=== PATIENT | female | born 1965 | race Caucasian/White ===

== ENCOUNTER 2021-03-10 09:59 | Outpatient (REF) | payer OTHER, SELFPAY | END 2021-03-10 10:00 | disposition home or self-care (01) | LOC: HO.LAB 09:59 | PROVIDERS: Visit Provider Nurse Practitioner Family | DX: J01.10 Acute frontal sinusitis, unspecified (principal); Z20.822 Contact with and (suspected) exposure to COVID-19 | CPT/HCPCS: U0003; U0005 ==

== ENCOUNTER 2021-03-12 14:40 | Outpatient (REF) | payer OTHER, SELFPAY ==
[2021-03-12 15:30] LABS: Influenza A PCR NEGATIVE (Negative); Influenza B PCR NEGATIVE (Negative); Resp Syncy Virus RNA Qual PCR NEGATIVE (Negative); SARS COV2 PCR INHOUSE NEGATIVE (Negative)
== END 2021-03-12 14:41 | disposition home or self-care (01) ==
LOC: HO.LNP 14:40
PROVIDERS: Visit Provider Nurse Practitioner Family
DX: Z20.822 Contact with and (suspected) exposure to COVID-19 (principal)
CPT/HCPCS: 0241U

== ENCOUNTER 2021-07-02 09:27 | Outpatient (REF) | payer OTHER, SELFPAY ==
[2021-07-02 11:25] LABS: Glucose Urine UA NEG (NEG); Leukocyte Esterase Urine NEG (NEG); Nitrite Urine NEG (NEG); Specific Gravity - Urine >= 1.030 (1.005-1.025); Urine Blood NEG (NEG); Urine Ketones NEG (NEG); Urine Protein TRACE MG/DL (NEG-TRACE)
[2021-07-02 11:26] LABS: Hematocrit 38.5 % (37-47); Hemoglobin 12.2 g/dl (12.0-16.0); Mean Corpuscular HGB Conc 31.7 g/dl (31.0-35.0); Mean Corpuscular Hemoglobin 29.3 pg (27.0-33.0); Mean Corpuscular Volume 92.5 fL (80-98); Mean Platelet Volume 10.7 fL (9.4-12.3); Platelet Count 227 X10*3/uL (160-400); Red Blood Count 4.16 X10*6/uL (4.20-5.50); Red Cell Distribution Width 13.1 % (11.0-16.0); White Blood Count 4.2 X10*3/uL (4.8-10.8)
[2021-07-02 11:27] LABS: Appearance Urine CLEAR; Color Urine YELLOW
[2021-07-02 12:04] LABS: TSH reflex Free T4 3.33 uIU/mL (0.32-4.0)
[2021-07-02 12:07] LABS: Alanine Aminotransferase 17 U/L (0-31); Albumin Level 4.1 g/dL (3.5-5.0); Alkaline Phosphatase 78 U/L (39-117); Anion Gap 11 (12-20); Aspartate Amino Transferase 22 U/L (5-31); Bilirubin Total 0.4 mg/dL (0.0-1.0); Blood Urea Nitrogen 14 mg/dL (9-16); Calcium 9.4 mg/dL (8.4-10.2); Carbon Dioxide 28 mmol/L (22-29); Chloride 104 mmol/L (96-108); Cholesterol 195 mg/dL; Estimated Glomerular Filt Rate > 60; Glucose Fasting 86 mg/dL (60-99); HDL Cholesterol 38 mg/dL; LDL Cholesterol Calculated 131 mg/dl; Potassium 4.3 mmol/L (3.3-5.1); Sodium 139 mmol/L (135-145); Total Protein 7.4 g/dL (6.5-8.0); Triglycerides 130 mg/dL
== END 2021-07-02 09:28 | disposition home or self-care (01) ==
LOC: HO.HMGCLDS 09:27
PROVIDERS: PCP Internal Medicine; Visit Provider Internal Medicine
DX: Z00.00 Encounter for general adult medical examination without abnormal findings (principal); G90.50 Complex regional pain syndrome I, unspecified
CPT/HCPCS: 36415; 80053; 80061; 81003; 84443; 85027

== ENCOUNTER 2021-08-21 09:48 | Outpatient (REF) | payer OTHER, SELFPAY ==
[2021-08-26 08:21] LABS: HPV mRNA E6/E7 rflx Not Detected (Not Detected)
== END 2021-08-21 09:49 | disposition home or self-care (01) ==
LOC: HO.LAB 09:48
PROVIDERS: Advanced Practice Midwife; PCP Internal Medicine; Visit Provider Advanced Practice Midwife
DX: Z01.419 Encounter for gynecological examination (general) (routine) without abnormal findings (principal); Z11.51 Encounter for screening for human papillomavirus (HPV)
CPT/HCPCS: 87624; 88142

== ENCOUNTER 2022-06-24 07:33 | Emergency (ER) | payer OTHER, SELFPAY ==
[2022-06-24 08:15] VITALS: BP 145/94; PULSE 88; RESP 18; TEMP 37; O2SAT 97; BMI 25.7
[2022-06-24 08:57] LABS: IDNOW Serial# 16C4AD1C
[2022-06-24 08:58] LABS: COVID-19 Test Negative (Negative)
--- NOTE | 2022-06-24 09:27 | ED.GENADULT ---
HPI - General Adult General Chief complaint: General Medical Stated complaint: DIZZY SORE THROAT DIFF BREATHING CHEST HURTS Time Seen by Provider: 06/24/22 09:01 Source: patient Mode of arrival: ambulatory Limitations: no limitations History of Present Illness HPI narrative: This is a [id number]-[id number]-female with a past medical history of hypertension and right arm neuropathy, who presents today with complaints of headache, cough, sore throat, bilateral ear pain, productive cough, subjective fevers, diarrhea, vomiting, and chest wall pain x 4 days. Patient reports that on tuesday she felt as though she was getting sick. She then developed a productive cough with associated chest wall pain, sore throat, and bilateral ear pain. She states that she has been taking ibuprofen for her symptoms which has provided her with minimal relief. She states that she has had 4 episodes of diarrhea, states that she has had no bloody or black stool. Denies any abdominal pain. Her daughter is sick at home with strep throat. No other complaints or concerns at this time. MD complaint: Ear pain, Sore throat, cough Onset (ago): day(s) Severity: moderate Severity scale (1-10): 5 Quality: aching Pain Consistency: constant Relieving factors: medication Exacerbating factors: none Associated symptoms: cough, fever/chills (subjective), headaches and nausea/vomiting Treatments prior to arrival: NSAID Related Data Home Medications Medication Instructions Recorded Confirmed baclofen 10 mg tablet 10 mg PO TID 03/10/21 08/21/21 gabapentin 600 mg tablet mg PO 03/10/21 08/21/21 morphine 15 mg tablet,extended 15 mg PO BEDTIME 03/10/21 08/21/21 release tramadol 50 mg tablet [id number] mg PO QID PRN 03/10/21 08/21/21 Previous Rx's Medication Instructions Recorded meloxicam 15 mg tablet (Mobic) 15 mg PO DAILY #14 tabs 08/11/21 meclizine 25 mg tablet 25 mg PO DAILY PRN motion sickness 12/30/21 #30 tabs metoprolol succinate 50 mg 50 mg PO DAILY #90 tabs 01/22/22 tablet,extended release 24 hr amoxicillin 875 mg-potassium 1 tab PO BID 10 days #20 tabs 06/24/22 clavulanate 125 mg tablet ofloxacin 0.3 % ear drops 10 drp otic (ears) BID 7 days #10 06/24/22 mL Allergies Allergy/AdvReac Type Severity Reaction Status Date / Time No Known Allergies Allergy Verified 08/21/21 10:09 [No Known Allergies*] Review of Systems Review of Systems: Constitutional : No Weight loss, + subjective Fever, + Chills, No Night Sweats, + Fatigue, + Malaise ENT/Mouth : No Hearing loss, + Ear Pain, No Nasal Congestion, No Sinus Pain, No Hoarseness, + sore throat, No Rhinorrhea, No Swallowing Difficulty Eyes: No Eye Pain, No Swelling, No Redness, No Foreign Body, No Discharge, No Vision Changes Cardiovascular : No Chest Pain, No SOB, No Dyspnea on Exertion, No Orthopnea, No Edema, No Palpitations Respiratory : + Cough, No Sputum, No Wheezing, No Smoke Exposure, No Dyspnea Gastrointestinal : + Nausea, + Vomiting, + Diarrhea, No Constipation, No abdominal Pain, No Hematochezia, No Melena Genitourinary : no irregular bleeding, No Dysuria, No Urinary Frequency, No Hematuria, No Urinary Incontinence, No Urgency, No Flank Pain, No Urinary Flow Changes, No Hesitancy Musculoskeletal : No joint pain, + Myalgias, No Joint Swelling Skin : No Skin Lesions, No rash Neuro : No Weakness, No Numbness, No Paresthesias, No Loss of Consciousness, No Dizziness, + Headache Psych : No Anxiety/Panic, No Depression, No SI/HI/AH/VH, No Social Issues, Heme/Lymph: No Bruising, No Bleeding,No Lymphadenopathy Endocrine : No Polyuria, No Polydipsia, No Temperature Intolerance Yes all other systems are reviewed and are negative [facility] Past Medical History Attestation statement: The following information was validated with the patient. Source: old records reviewed and nursing notes reviewed Medical History Annual physical exam Carpal tunnel syndrome on right Fibromyalgia Herniated cervical disc Hypertension RSD (reflex sympathetic dystrophy) Surgical History H/O colonoscopy Social History Social History (Updated 08/21/21 @ 10:12 by Ebonie Kyle CMA) Household Members: Spouse and Children Housing: House Alcohol intake: never Patient Tobacco Use Status: Never used Tobacco e-Cigarette/Vaping Use: Never Used Advance Directives: No Advance Directives Information Provided: Yes Current occupational status: disabled Sexual orientation: Straight/Heterosexual Gender identity: Female Physical Exam ED Vital Signs: Vital Signs - 24 hr 06/24/22 08:15 Temperature 98.6 F Pulse Rate 88 Respiratory Rate 18 Blood Pressure 145/94 H Pulse Oximetry 97 Oxygen Delivery Method Room Air BMI result Body Mass Index 25.7 Vital signs have been reviewed as normal and appeared to be correct. Blood pressure 145/94. Heart rate normal. Respiration rate normal. Temperature normal. Oxygen saturation normal. Appearance: Alert. Oriented X3. No acute distress. Head: Normal external exam. Normocephalic. Atraumatic. Eyes: PERRLA. EOMI. Conjunctiva and sclera normal. Eyelids normal. ENT: Erythema and edema noted to the auditory canal, L>R. TM's Normal. Tenderness to palpation over the left pinna, and with tugging on the ear lobe and helix. No septal hematoma noted. No hemotympanum noted. Pharynx is mildly erythematous. Tonsils are nonedematous, nonexudative, Uvula midline. Moist mucous membranes. No lesions/ulcerations or masses noted on the tongue. Normal voice. No trismus noted. No drooling noted. No muffled voice noted. Neck: Normal inspection. Neck supple. FROM. Tender, Anterior, cervical lymphadenopathy. Thyroid Normal. No tracheal deviation noted. No crepitus is noted. No meningeal signs. No neck mass noted. No signs of trauma noted. CVS: Normal heart rate and rhythm. Heart sound normal. Pulses normal throughout. No murmurs/rales/gallops. Respiratory: No respiratory distress. Painless inspiration. Breath sounds normal. No wheezes/rales/rhonchi noted. Chest nontender. No crepitus is noted. No signs of trauma noted. No accessory muscle usage noted or decreased air movement noted. No signs of trauma. Abdomen: Soft and nontender. Bowel sounds normal in all 4 quadrants. Back: No CVA tenderness. Full range of motion noted. Skin: Skin warm and dry. Normal skin color. Normal skin turgor. No rashes/lesions/lacerations noted. Extremities: No lower extremity edema. Extremities exhibit normal range of motion and nontender. Neuro: Oriented X 3. No motor deficit. No sensory deficit. Reflexes normal. Normal steady gait. No focal neuro deficits noted. CN's II-XII intact bilaterally? Vascular: + radial pulses/+ 2 distal pedal pulses/+2 dorsalis pedis b/l. Normal cap refill. No cyanosis noted to upper extremity nails and lower extremity toes nails. Course Course Course Narrative: This is a 73-krwj-kgx-female with a past medical history of hypertension and right arm neuropathy, who presents today with complaints of headache, cough, sore throat, bilateral ear pain, productive cough, subjective fevers, diarrhea, vomiting, and chest wall pain x 4 days. Plan: COVID-19 swab,negative today. Strep test performed and pending. Reevaluation(s) Reevaluation #1: Physical examination consistent with otitis externa, will treat with ciprodex, and augmentin for pharyngitis due to daughter works with kids and was positive for strep last week. Along with instructions return if any new or worsening symptoms follow up with primary care provider. Patient understands agrees with this plan. Medical Decision Making Medical Records Medical records reviewed: Yes I reviewed the patient's medical records. Lab Data Lab results reviewed: Yes I reviewed the patient's lab results. Labs: Lab Results 06/24/22 06/24/22 Range/Units 08:23 10:28 COVID-19 (MIGDALIA) Negative (Negative) COVID-19 Clin Com See Note S. pyogenes GrpA SAUNDRA Negative (Negative) Discharge Plan Discharge Clinical Impression: Otitis externa, Pharyngitis Patient Disposition: Home, Self-Care Additional Instructions: Your COVID test was negative today. Take prescribed antibiotic as prescribed, finish the whole course. Use the prescribed antibiotic ear drops as prescribed. You may take over the counter ibuprofen/tylenol as directed needed for symptoms. Drink plenty of fluids and get plenty of rest. If any new or worsening symptoms occur, please return for re-evaluation. Prescriptions: New amoxicillin-pot clavulanate 875-125 mg tablet 1 tab PO BID 10 Days Qty: 20 0RF ofloxacin 0.3 % drops 10 drp otic (ears) BID 7 Days Qty: 10 0RF No Action meclizine 25 mg tablet 25 mg PO DAILY PRN (Reason: motion sickness) Qty: 30 0RF metoprolol succinate 50 mg tablet extended release 24 hr 50 mg PO DAILY Qty: 90 3RF morphine 15 mg tablet extended release 15 mg PO BEDTIME tramadol 50 mg tablet [id number] mg PO QID PRN gabapentin 600 mg tablet PO baclofen 10 mg tablet 10 mg PO TID meloxicam [Mobic] 15 mg tablet 15 mg PO DAILY Qty: 14 0RF Referrals: Ayana Whitney MD [Primary Care Provider] - 2 days Stand Alone Forms: Work/School Release Interventions: ED Discharge Assessment Last Done: 06/24/22 10:33 Discharge Date/Time: 06/24/22 10:33
[2022-06-24 10:52] LABS: Strep A Nucleic Acid Negative (Negative)
== END 2022-06-24 10:33 | disposition home or self-care (01) ==
PROVIDERS: Physician Assistant Medical; Emergency Provider Student in an Organized Health Care Education/Training Program; PCP Internal Medicine
DX: H60.93 Unspecified otitis externa, bilateral (principal); J02.9 Acute pharyngitis, unspecified; R42 Dizziness and giddiness; R50.9 Fever, unspecified; I10 Essential (primary) hypertension; R11.2 Nausea with vomiting, unspecified; Z20.822 Contact with and (suspected) exposure to COVID-19; Z79.899 Other long term (current) drug therapy
CPT/HCPCS: 36415; 87635; 87651; 99282; 99283

== ENCOUNTER 2022-08-06 06:13 | Emergency (ER) | payer OTHER, SELFPAY ==
--- NOTE | ~2022-08-06 | US_ITS ---
EXAMINATION: US EXTREMITY NONVASCULAR LIMITED CLINICAL INFORMATION: Left knee pain and ecchymosis. Evaluate for torn patellar tendon. COMPARISON: Radiographs of the left knee from 08/06/2022. TECHNIQUE: Sonographic imaging of the left knee was performed by the time study technologist using a high-resolution linear 12 MHz transducer. The acquired images were uploaded into the electronic picture archive for review. FINDINGS: On this limited examination of the left knee, there is no evidence of knee joint effusion or Issa's cyst. The patellar tendon has normal caliber and echotexture. No evidence of patellar tendon tear. A small amount of somewhat crescentic shaped fluid projects anterior to the patellar tendon in area that measures up to 0.3 cm AP and up to 2.5 cm transverse. This could represent a very small hematoma (if recent trauma) or a focus of superficial infrapatellar bursitis. US/US extremity nonvascular peres IMPRESSION: * No evidence of patellar tendon injury. * The small amount of fluid observed anterior to the patellar tendon could represent a focus of superficial infrapatellar bursitis.
--- NOTE | ~2022-08-06 | XR_ITS ---
EXAMINATION: XR KNEE, LEFT CLINICAL INFORMATION: Pain and ecchymosis of the anterior knee. COMPARISON: None TECHNIQUE: Four views of the left knee. FINDINGS: Bones and joints are normal. No fracture, subluxation or joint effusion. No arthritic deformity. There is an enthesophyte at the upper pole of the patella. Soft tissues are mildly swollen in the anterior infrapatellar area. No soft tissue gas or radiopaque foreign body. XR/XR knee LT 4V IMPRESSION: There is mild soft tissue swelling in the anterior infrapatellar area. Otherwise, unremarkable examination of the left knee.
[2022-08-06 06:20] VITALS: BP 121/84; PULSE 64; RESP 16; TEMP 36.6; O2SAT 97; BMI 26.5
[2022-08-06 06:38] VITALS: BP 107/68; PULSE 65; O2SAT 98
--- NOTE | 2022-08-06 07:31 | ED_ITS ---
HPI - Extremity Problem General Chief complaint: Extremity Problem Stated complaint: L KNEE REDNESS PAIN Time Seen by Provider: 08/06/22 07:25 Source: patient Mode of arrival: ambulatory History of Present Illness HPI Narrative: 57-year-old female who states that she was cleaning her kitchen last night and presents with left knee pain that started after she bent her knee to medial on the ground and states that she felt her knee ?shift? with significant pain afterwards causing her to stand up immediately and then she noted that there was swelling and pain to the anterior aspect. This morning she noted that there was related bruising but denies in event of falling onto her knees and denies any pain within the joint itself. Pain does increase with weight-bearing, extension of the lower leg and patient does also have discomfort when flexing at the knee. She otherwise denies numbness or tingling. Related Data Home Medications Medication Instructions Recorded Confirmed baclofen 10 mg tablet 10 mg PO TID 03/10/21 08/21/21 gabapentin 600 mg tablet mg PO 03/10/21 08/21/21 morphine 15 mg tablet,extended 15 mg PO BEDTIME 03/10/21 08/21/21 release tramadol 50 mg tablet [id number] mg PO QID PRN 03/10/21 08/21/21 Previous Rx's Medication Instructions Recorded meloxicam 15 mg tablet (Mobic) 15 mg PO DAILY #14 tabs 08/11/21 meclizine 25 mg tablet 25 mg PO DAILY PRN motion sickness 12/30/21 #30 tabs metoprolol succinate 50 mg 50 mg PO DAILY #90 tabs 01/22/22 tablet,extended release 24 hr amoxicillin 875 mg-potassium 1 tab PO BID 10 days #20 tabs 06/24/22 clavulanate 125 mg tablet ofloxacin 0.3 % ear drops 10 drp otic (ears) BID 7 days #10 06/24/22 mL Allergies Allergy/AdvReac Type Severity Reaction Status Date / Time No Known Allergies Allergy Verified 08/21/21 10:09 [No Known Allergies*] Review of Systems Review of Systems: Pertinent positives and negatives as stated in HPI 10 point review of systems is otherwise negative. PMFSH Past Medical History Source: nursing notes reviewed Medical History Annual physical exam Carpal tunnel syndrome on right Fibromyalgia Herniated cervical disc Hypertension RSD (reflex sympathetic dystrophy) Surgical History H/O colonoscopy Social History Social History Household Members: Spouse and Children Housing: House Alcohol intake: never Patient Tobacco Use Status: Never used Tobacco e-Cigarette/Vaping Use: Never Used Advance Directives: No Advance Directives Information Provided: Yes Current occupational status: disabled Sexual orientation: Straight/Heterosexual Gender identity: Female Physical Exam Vital Signs: Vital Signs: Last Vital Signs Temp 98 F 08/06/22 06:20 Pulse 65 08/06/22 06:38 Resp 16 08/06/22 06:20 BP 107/68 08/06/22 06:38 Pulse Ox 98 08/06/22 06:38 O2 Del Method 08/06/22 06:38 BMI result Body Mass Index 26.5 VITAL SIGNS: Reviewed. GENERAL: Well developed, well nourished, in no acute distress. HEAD: Normocephalic/atraumatic EYES: PERRLA, EOMI EARS: Ext canals without abnormality OROPHARYNX: no oral lesions noted, posterior pharynx clear LUNGS: Normal breath sounds. No adventitious sounds or accessory muscle use. SpO2<98> CARDIOVASCULAR: Regular rate and rhythm without noted murmurs ABDOMEN: Soft, non-tender, non-distended with bowel sounds. MUSCULOSKELETAL: No tenderness, deformities, or effusions noted on gross inspection x3, but LEFT KNEE: There is noted mild swelling to the anterior aspect over the patellar tendon with surrounding ecchymosis and pain on palpation, decrease extension, pain on flexion otherwise palpable DP/PT with warm foot and sensation is intact. EXTREMITIES: No cyanosis, clubbing or edema. SKIN: Inspection of the skin reveals no rashes NEUROLOGIC: Alert and oriented x 4. Strength and sensation to light touch were grossly intact x 4. Course Course Course Narrative: 57-year-old female with history and clinical presentation mildly concerning for patellar tendon partial rupture and lower clinical suspicion for ACL/PCL/meniscal injuries. Review of all investigations negative for acute findings to suggest patellar tendon rupture or any bony/joint abnormality. Patient received analgesics and on re-evaluation is feeling somewhat better. Presumptive diagnosis is infra- patellar bursitis, Akira wrap was put in place, patient was informed of all findings and diagnoses and instructed to take [id number] Tylenol/ibuprofen to help reduce the bursitis. Discharge Plan Discharge Clinical Impression: Infrapatellar bursitis of left knee Patient Disposition: Home, Self-Care Instructions: Knee Bursitis (ED) Additional Instructions: 1. Resume all home medications as prescribed. 2. If you are no longer using meloxicam, the recommendation is that you start using ibuprofen 400 mg, orally with milk or food, every 6 hours as needed for pain control and swelling. 3. Tylenol 1000 mg, orally, every 6 hours as needed for pain control. Do not exceed 4000 mg within 24 hours. 4. Please keep the Akira wrap in place for additional symptom relief and support. 5. Follow-up with your primary care provider in the next 1-2 days for re- evaluation. Return to the ER for worsening symptoms. Prescriptions: No Action meclizine 25 mg tablet 25 mg PO DAILY PRN (Reason: motion sickness) Qty: 30 0RF metoprolol succinate 50 mg tablet extended release 24 hr 50 mg PO DAILY Qty: 90 3RF amoxicillin-pot clavulanate 875-125 mg tablet 1 tab PO BID 10 Days Qty: 20 0RF ofloxacin 0.3 % drops 10 drp otic (ears) BID 7 Days Qty: 10 0RF morphine 15 mg tablet extended release 15 mg PO BEDTIME tramadol 50 mg tablet [id number] mg PO QID PRN gabapentin 600 mg tablet PO baclofen 10 mg tablet 10 mg PO TID meloxicam [Mobic] 15 mg tablet 15 mg PO DAILY Qty: 14 0RF Referrals: Ayana Whitney MD [Primary Care Provider] - Stand Alone Forms: Work/School Release
[2022-08-06] MEDS: Acetaminophen 325 MG TABLET 975 MG PO (07:59)
[2022-08-06] MEDS: Ibuprofen 400 MG TABLET PO (08:00)
== END 2022-08-06 09:43 | disposition home or self-care (01) ==
PROVIDERS: Emergency Provider Student in an Organized Health Care Education/Training Program; PCP Internal Medicine
DX: M70.52 Other bursitis of knee, left knee (principal); M25.562 Pain in left knee; Z79.899 Other long term (current) drug therapy
CPT/HCPCS: 73564; 76882; 99283; 99284

== ENCOUNTER 2022-09-25 08:10 | Outpatient (REF) | payer OTHER, SELFPAY ==
[2022-09-25 11:40] LABS: MANUAL DIFF FLAG NO
[2022-09-25 11:52] LABS: Basophils Absolute Auto 0.1 X10*3/uL (0.0-0.2); Basophils Percent Auto 0.9 % (0-2); Eosinophils Absolute Auto 0.3 X10*3/uL (0.0-0.4); Hematocrit 40.9 % (37.0-47.0); Hemoglobin 13.1 g/dl (12.0-16.0); Imm Gran Abs Auto 0.01 X10*3/uL (0.00-0.03); Imm Gran Pct Auto 0.2 % (0.0-0.4); Lymphocytes Absolute Auto 2.2 X10*3/uL (1.2-4.9); Lymphocytes Percent Auto 34.8 % (20-40); Mean Corpuscular Hemoglobin 29.7 pg (27.0-33.0); Mean Corpuscular Volume 92.7 fL (80.0-98.0); Mean Platelet Volume 11.1 fL (9.4-12.3); Monocytes Absolute Auto 0.4 X10*3/uL (0.1-1.2); Monocytes Percent Auto 6.2 % (2-11); Neutrophils Absolute Auto 3.5 x10*3/uL (2.0-8.3); Neutrophils Percent Auto 53.9 % (45-73); Platelet Count 252 X10*3/uL (160-400); Red Blood Count 4.41 X10*6/uL (4.20-5.50); Red Cell Distribution Width 13.2 % (11.0-16.0); White Blood Count 6.4 X10*3/uL (4.8-10.8)
[2022-09-25 12:12] LABS: Alanine Aminotransferase 10 U/L (0-31); Albumin Level 4.4 g/dL (3.5-5.0); Alkaline Phosphatase 78 U/L (39-117); Anion Gap 14 (12-20); Aspartate Amino Transferase 16 U/L (5-31); Bilirubin Total 0.5 mg/dL (0.0-1.0); Blood Urea Nitrogen 16 mg/dL (9-16); Calcium 9.6 mg/dL (8.4-10.2); Carbon Dioxide 27 mmol/L (22-29); Chloride 105 mmol/L (96-108); Cholesterol 228 mg/dL; Estimated Glomerular Filt Rate > 60; Glucose Fasting 97 mg/dL (60-99); HDL Cholesterol 59 mg/dL; LDL Cholesterol Calculated 153 mg/dl; Potassium 4.1 mmol/L (3.3-5.1); Sodium 142 mmol/L (135-145); Total Protein 7.3 g/dL (6.5-8.0); Triglycerides 80 mg/dL
[2022-09-25 12:20] LABS: TSH reflex Free T4 3.08 uIU/mL (0.32-4.0)
== END 2022-09-25 08:11 | disposition home or self-care (01) ==
LOC: HO.HMGCLDS 08:10
PROVIDERS: PCP Internal Medicine; Visit Provider Internal Medicine
DX: Z00.00 Encounter for general adult medical examination without abnormal findings (principal); I10 Essential (primary) hypertension; G90.529 Complex regional pain syndrome I of unspecified lower limb; M19.079 Primary osteoarthritis, unspecified ankle and foot
CPT/HCPCS: 36415; 80053; 80061; 84443; 85025

== ENCOUNTER 2023-07-11 08:06 | Outpatient (AMB) | payer OTHER, SELFPAY ==
--- NOTE | 2023-07-11 08:15 | MHC.OFFWIV ---
Intake Vital Signs 07/11/23 08:17 Weight 140 lb BP 120/80 Blood Pressure Location Rt brachial Position Sitting Pulse 80 Pulse Source Pulse Oximeter Pulse Oximetry (%) 98 Oxygen Delivery Method Room Air Intake Visit Reasons: EP, Bilateral lower leg sunburn Intake Note: Patient here for bilat leg sunburn. forming a blister on lower right leg. Patient Tobacco Use Status: Never used Tobacco Allergies No Known Allergies [No Known Allergies*] Allergy (Verified 07/11/23 09:01) Medication List - Last Reconciled 07/11/23 by Bassem Ortez MD baclofen 10 mg PO TID PRN gabapentin mg PO .4 times a day meclizine 25 mg PO DAILY PRN metoprolol succinate ER 50 mg PO DAILY morphine ER 15 mg PO BEDTIME [id number]-HH 3.5-10,000-1 mg/mL-unit/mL-% 4 drps otic (ears) Q8H tramadol [id number] mg PO QID PRN Do you need a note to return to daycare/school/sports/work: No HPI EP, Bilateral lower leg sunburn HPI Details 58-year-old female presents to the office for a sick visit. Patient is reporting symptoms of sunburn in her legs. She had gone to the beach last week and did not use any sunscreen. FORMERLY [facility] Medical History Annual physical exam Carpal tunnel syndrome on right Fibromyalgia Herniated cervical disc Hypertension RSD (reflex sympathetic dystrophy) Surgical History H/O colonoscopy Social History Household Members: Spouse and Children Housing: House Alcohol intake: never Patient Tobacco Use Status: Never used Tobacco e-Cigarette/Vaping Use: Never Used Current occupational status: disabled Sexual orientation: Straight/Heterosexual Gender identity: Female Cognitive needs: No Hearing needs: No Vision needs: Yes Female Reproductive History Menstrual Age of Menarche: 10 Physical Exam Vital Signs: Last Vital Signs Pulse 80 07/11/23 08:17 BP 120/80 07/11/23 08:17 Pulse Ox 98 07/11/23 08:17 Oxygen Delivery Method Room Air 07/11/23 08:17 Extrem Other: Right and left lower leg: Below the knee: Erythematous area, continuous extending up to the ankle. Bilateral feet show minimal swelling. Assessment & Plan Assessment & Plan (1) Phototoxic dermatitis: Code(s): L56.8 - Other specified acute skin changes due to ultraviolet radiation Plan: Prednisone for 3 days. Patient was advised to use hydrocortisone cream. Coding Level of Care Code Est Pt Level 3 (23852) Diagnoses Phototoxic dermatitis L56.8
[2023-07-11 08:17] VITALS: BP 120/80; PULSE 80; O2SAT 98
== END 2023-07-11 09:06 | disposition home or self-care (01) ==
PROVIDERS: PCP Internal Medicine; Visit Provider Internal Medicine
DX: L56.8 Other specified acute skin changes due to ultraviolet radiation (principal)
CPT/HCPCS: 99213

== ENCOUNTER 2023-10-27 09:10 | Outpatient (AMB) | payer OTHER, SELFPAY ==
[2023-10-27 10:45] VITALS: BP 122/78; PULSE 80; TEMP 36.3; O2SAT 98
--- NOTE | 2023-10-27 10:45 | MHC.OFFWIV ---
Intake Vital Signs 10/27/23 10:45 Height 5 ft 3 in BP 122/78 Blood Pressure Location Rt brachial Position Sitting Pulse 80 Pulse Source Pulse Oximeter Temp 97.4 F Temp Source Temporal Artery Scan Pulse Oximetry (%) 98 Oxygen Delivery Method Room Air Intake Visit Reasons: EST/left eye swelling (lobby) Intake Note: pt is here for c/o right eye swelling, ear pain bilateral Patient Tobacco Use Status: Never used Tobacco Allergies No Known Allergies [No Known Allergies*] Allergy (Verified 10/27/23 10:45) Do you need a note to return to daycare/school/sports/work: Yes HPI HPI Comments History of Present Illness Details This is a 58-year-old female with a past medical history of hypertension presenting for evaluation of right eye pain and bilateral ear pain. Patient states that her symptoms started on Tuesday. Patient describes a burning sensation on the lateral right lower eyelid without visual changes or discharge from the right eye. Patient states she was cleaning her ears on Tuesday and she noticed blood on the Q-tip after cleaning her right ear. She denies having any fevers, chills, sore throat or lightheadedness. [facility]LY [facility] Medical History Annual physical exam RSD (reflex sympathetic dystrophy) Hypertension Carpal tunnel syndrome on right Herniated cervical disc Fibromyalgia Surgical History H/O colonoscopy Social History Household Members: Spouse and Children Housing: House Alcohol intake: never Patient Tobacco Use Status: Never used Tobacco e-Cigarette/Vaping Use: Never Used Current occupational status: disabled Sexual orientation: Straight/Heterosexual Gender identity: Female Cognitive needs: No Hearing needs: No Vision needs: Yes Female Reproductive History Menstrual Age of Menarche: 10 Review of Systems Const All systems reviewed & are unremarkable except as noted in HPI and below Denies chills and Denies fever(s) Eyes Reports as per HPI, Denies blurry vision, Denies change in vision, Reports eye pain (right lateral lower eyelid) and Reports requires corrective lenses ENT Reports no additional complaints and Reports otalgia (bilateral, R > L) Resp Reports as per HPI Neuro Reports no additional complaints Physical Exam Vital Signs: Last Vital Signs Temp 97.4 F 10/27/23 10:45 Pulse 80 10/27/23 10:45 BP 122/78 10/27/23 10:45 Pulse Ox 98 10/27/23 10:45 Oxygen Delivery Method Room Air 10/27/23 10:45 Const General: cooperative, healthy appearing, comfortable and no acute distress; No ill appearing Nutritional Appearance: average body habitus Orientation/consciousness: patient oriented x3 Limitations: no limitations HEENT Head: Yes normal to inspection Ears: hearing grossly normal bilaterally, external ears normal, TM's normal bilaterally, EAC's normal and other (no TM bulging, erythema, canal stenosis or pain to examination.) General nose exam: Normal external nose present Face and sinus: Yes normal facial exam Mouth: Normal oral and palatal mucosa present Throat: Yes posterior oropharynx normal Eyes Visual Renee: normal visual renee by confrontation Alignment and Position: alignment normal Periorbital: periorbital findings normal Eyelids: Yes eyelid abnormality (edema and pain to examination of right lateral lower eyelid) Conjunctivae: conjunctivae normal Sclerae: sclerae normal Corneas: corneas normal Pupils: Equal, round and reactive pupils present EOM: EOMs intact bilaterally Direct Ophthalmoscopy: no photophobia Neuro General: patient oriented x3 Cranial nerves: Yes Equal, round and reactive pupils present Psych Appearance: grossly normal Mental Status: mental status grossly normal Insight: Good insight present (Psych) Judgement: Good judgement present (Psych) Assessment & Plan Assessment & Plan (1) Hordeolum externum (stye): Code(s): H00.019 - Hordeolum externum unspecified eye, unspecified eyelid Qualifiers: Eyelid: lower Laterality: right Qualified Code(s): H00.012 - Hordeolum externum right lower eyelid Plan: Tylenol and warm compresses to right eye four times daily; patient to follow-up with PCP within 7-10 days of her symptoms have not improved. Patient Instructions: Tylenol and warm compresses to right eye four times daily; patient to follow-up with PCP within 7-10 days of her symptoms have not improved. Coding Level of Care Code Est Pt Level 3 (67920) Diagnoses Hordeolum externum of right lower eyelid H00.012 Eyelid: lower Laterality: right Time Spent (min) 20
== END 2023-10-27 11:27 | disposition home or self-care (01) ==
PROVIDERS: PCP Internal Medicine; Visit Provider Physician Assistant
DX: H00.012 Hordeolum externum right lower eyelid (principal)
CPT/HCPCS: 99213

== ENCOUNTER 2024-02-07 09:04 | Outpatient (AMB) | payer OTHER, SELFPAY ==
--- NOTE | 2024-02-07 09:07 | A.OFFPC_ITS ---
Vital Signs 02/07/24 09:09 Height 5 ft 3 in Weight 144 lb BMI 25.5 BP 128/82 Blood Pressure Location Lt brachial Position Sitting Pulse 80 Pulse Source Pulse Oximeter Pulse Oximetry (%) 98 Oxygen Delivery Method Room Air Intake Visit Reasons: eye and ear concerns Intake Note: Pt is here today for a sick visit. Pt c/o R eye swelling and earache and in the back of her head. Allergies No Known Allergies [No Known Allergies*] Allergy (Verified 02/07/24 09:12) Tobacco use date assessed: 02/07/24 Dental Screening Dental Screen Date: 02/07/24 Did you have a dental visit in the last 12 months?: Yes Did you have a dental problem in the last 6 months where you did not have access to dental care?: No Was dental information given to patient?: Patient has dentist HPI eye and ear concerns HPI Details Pt c/o R eye pain and dry eye for 1 month no change in the vision. Patient had a normal eye exam in July. Pt c/o R side neck pain and tightness and occipital QUINTERO on and off for 1 month. Patient has been in pain management for chronic neck and lower back pain treated with gabapentin tramadol and morphine. Patient denies nausea vomiting weakness or numbness in extremities or change in balance. [facility] Medical History Annual physical exam RSD (reflex sympathetic dystrophy) Hypertension Carpal tunnel syndrome on right Herniated cervical disc Fibromyalgia Surgical History H/O colonoscopy Family History Father Hypertension Mother Hypertension Social History Household Members: Spouse and Children Housing: House Alcohol intake: never Patient Tobacco Use Status: Never used Tobacco e-Cigarette/Vaping Use: Never Used Current occupational status: disabled Sexual orientation: Straight/Heterosexual Gender identity: Female Cognitive needs: No Hearing needs: No Vision needs: Yes Female Reproductive History Menstrual Age of Menarche: 10 Questionnaire PHQ-9 Over the last 2 weeks, how often have you been bothered by any of the following problems? 1. Little interest or pleasure in doing things: not at all 2. Feeling down, depressed, or hopeless: not at all 3. Trouble falling or staying asleep, or sleeping too much: not at all 4. Feeling tired or having little energy: not at all 5. Poor appetite or overeating: not at all 6. Feeling bad about yourself - or that you are a failure or have let yourself or your family down: not at all 7. Trouble concentrating on things, such as reading the newspaper or watching television: not at all 8. Moving or speaking so slowly that other people could have noticed. Or the opposite - being so fidgety or restless that you have been moving around a lot more than usual: not at all 9. Thoughts that you would be better off or of hurting yourself in some way: not at all Total score: 0 Depression Screening Interpretation: Negative Depression Screening Done: Yes Source: Developed by Drs. Hector Zendejas, Danni Sparks, Milton French and colleagues, with an educational merle from [employer]. Thrive Questionnaire Date Thrive assessed: 02/07/24 I am a: Patient What is your living situation today?: I have a steady place to live Within the past 12 months, did the food you bought not last and you didn't have the money to get more?: Never true Within the past 12 months, did you worry whether your food would run out before you got money to buy more?: Never true Do you have trouble paying for medicines?: No Do you have trouble getting transportation to medical appointments?: No Do you have trouble paying your heating and electricity bill?: No Do you have trouble taking care of your child, family member or friend?: No Do you have trouble with day-to-day activities such as bathing, preparing meals, shopping, managing finances, etc.?: No Are you currently unemployed and looking for a job?: No Are you interested in more education?: No Please select the resources that you would like help with: None Currently or been in a relationship where the following occur: no concerns reported THRIVE Score: 0 AUDIT C Alcohol Use Questionnaire (AUDIT-C) 1. How often do you have a drink containing alcohol?: Never 3. How often do you have six or more drinks on one occasion?: Never Total Score: 0 KHALIDA-7 AMB Questionnaire KHALIDA-7 Date KHALIDA - 7 assessed: 02/07/24 Feeling nervous, anxious, or on edge: 0 = Not at all Not being able to stop or control worryin = Not at all Worrying too much about different things: 0 = Not at all Trouble relaxin = Not at all Being so restless that it is hard to sit still: 0 = Not at all Becoming easily annoyed or irritable: 0 = Not at all Feeling afraid as if something awful might happen: 0 = Not at all Total KHALIDA-7 score (0-4 normal; 5-9 mild; 10-14 moderate; 15-21 severe): 0 Source: Developed by Drs. Hector Zendejas, Danni Sparks, Milton French and colleagues, with an educational merle from [employer]. Review of Systems Const All systems reviewed & are unremarkable except as noted in HPI and below Reports no additional complaints Eyes Reports no additional complaints ENT Reports no additional complaints Card Reports no additional complaints Resp Reports no additional complaints GI Reports no additional complaints Reports no additional complaints Physical exam (Primary Care) Vital Signs: Last Vital Signs Pulse 80 02/07/24 09:09 BP 128/82 02/07/24 09:09 Pulse Ox 98 02/07/24 09:09 Oxygen Delivery Method Room Air 02/07/24 09:09 BMI result Body Mass Index 25.5 Tobacco/Smoking Status: Tobacco use Status Tobacco use date assessed 02/07/24 02/07/24 09:14 Patient Tobacco Use Status Never used Tobacco 02/07/24 09:09 e-Cigarette/Vaping Use Never Used 02/07/24 09:09 PHQ-9: PHQ-9 Score PHQ-9: Total score 0 02/07/24 09:36 Depression Screening Interpretation: Negative Thrive Assessment: Date of Thrive Assessment Date Thrive assessed 02/07/24 02/07/24 09:36 Currently or been in a relationship where the following occur: no concerns reported Const General: no acute distress HENMT Head: Yes normal to inspection Ears: hearing grossly normal bilaterally and TM's normal bilaterally General nose exam: Normal external nose present Face and sinus: Yes normal facial exam Mouth: Normal oral and palatal mucosa present Throat: Yes posterior oropharynx normal Eyes General: appearance normal, both eyes and all related structures Pupils: Equal, round and reactive pupils present EOM: EOMs intact bilaterally Direct Ophthalmoscopy: normal light reflex Neck Other: Paraspinal tenderness in lower cervical region right more than left, Neck: Yes no lymphadenopathy and Yes supple Resp Effort & Inspection: normal respiratory effort Auscultation: clear to auscultation bilaterally Cardio Rhythm: regular rhythm Heart sounds: S1 normal heart sound present and S2 normal heart sound present GI Palpation (GI): Soft to palpation Back/Spine/Pelvis Other: Paraspinal tenderness in the lower lumbar region right more than left, straight leg rising 90 degrees bilaterally, decreased range of motion in both hips, there is bilateral trochanteric area reproducible tenderness Neuro Cranial nerves: Yes Equal, round and reactive pupils present Assessment and Plan Assessment & Plan (1) Hypertension: Code(s): I10 - Essential (primary) hypertension Plan: Continue metoprolol (2) RSD (reflex sympathetic dystrophy): Comment: f/u pain management in [place], Code(s): G90.50 - Complex regional pain syndrome I, unspecified Plan: Follow-up with pain management (3) Neck pain: Code(s): M54.2 - Cervicalgia Plan: neck stretching exercises discussed with the patient. PT was recommended but patient declined. 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
[2024-02-07 09:09] VITALS: BP 128/82; PULSE 80; O2SAT 98; BMI 25.5
== END 2024-02-07 09:58 | disposition home or self-care (01) ==
PROVIDERS: PCP Internal Medicine; Visit Provider Internal Medicine
DX: I10 Essential (primary) hypertension (principal); G90.50 Complex regional pain syndrome I, unspecified; M54.2 Cervicalgia; M54.50 Low back pain, unspecified; H04.123 Dry eye syndrome of bilateral lacrimal glands
CPT/HCPCS: 99213

== ENCOUNTER 2024-08-23 13:02 | Outpatient (AMB) | payer OTHER, SELFPAY ==
--- NOTE | 2024-08-23 13:40 | MHC.OFFWIV ---
Intake Vital Signs 08/23/24 13:47 Height 5 ft 3 in Weight 142 lb BMI 25.2 BP 118/80 Blood Pressure Location Lt brachial Position Sitting Pulse 69 Pulse Source Pulse Oximeter Pulse Oximetry (%) 96 Oxygen Delivery Method Room Air Intake Visit Reasons: EP lump inside left ear -painful Intake Note: patient here for lump in left ear that he noticed yesterday. Patient Tobacco Use Status: Never used Tobacco Allergies No Known Allergies [No Known Allergies*] Allergy (Verified 02/07/24 09:12) HPI EP lump inside left ear -painful HPI Details This is a 59-year-old female patient who presents to the walk-in clinic today with pain in her left ear since this morning. She reports that the inside of her ear is very tender, and she is unable to lay on that side of her head. She states that she can feel a little bump in her ear with a Q-tip. Denies any noted drainage course. No fever or chills. Reports a mild headache on that side due to this. No mastoid pain. [facility] Medical History Annual physical exam RSD (reflex sympathetic dystrophy) Hypertension Carpal tunnel syndrome on right Herniated cervical disc Fibromyalgia Surgical History H/O colonoscopy Family History Father Hypertension Mother Hypertension Social History Household Members: Spouse and Children Housing: House Alcohol intake: never Patient Tobacco Use Status: Never used Tobacco e-Cigarette/Vaping Use: Never Used Current occupational status: disabled Sexual orientation: Straight/Heterosexual Gender identity: Female Cognitive needs: No Hearing needs: No Vision needs: Yes Female Reproductive History Menstrual Age of Menarche: 10 Review of Systems Const All systems reviewed & are unremarkable except as noted in HPI and below Physical Exam Vital Signs: Last Vital Signs Pulse 69 08/23/24 13:47 BP 118/80 08/23/24 13:47 Pulse Ox 96 08/23/24 13:47 Oxygen Delivery Method Room Air 08/23/24 13:47 BMI result Body Mass Index 25.2 Const General: cooperative, healthy appearing and no acute distress HEENT Head: Yes normal to inspection Ears: hearing grossly normal bilaterally, external ears normal, TM's normal bilaterally and Abnormal EAC present erythema on the left and EAC tenderness on the left Neck Neck: Yes no lymphadenopathy Resp Effort & Inspection: normal respiratory effort Skin General skin exam: no rashes or lesions noted Extrem General: Yes no clubbing, cyanosis or edema Psych Appearance: grossly normal Mental Status: mental status grossly normal Speech and movement: Normal speech and movement present Assessment & Plan Assessment & Plan (1) Inflammation of left ear canal: Code(s): H60.92 - Unspecified otitis externa, left ear Plan: Patient has what is likely a small painful abscess in her left ear canal, on the posterior aspect of canal. I can identify some mild swelling with otoscopic exam, however cannot specifically see or palpate the localization of any fluid buildup, and patient had a hard time tolerating exam. I advised warm compresses, and will start patient on cipro/dexa drops. We discussed that if she develops any increasing pain, drainage, mastoid pain, fever/chills, she should return to the clinic or go to the ED for evaluation. She verbalizes understanding and agrees to plan. Medications: New ciprofloxacin-dexamethasone 0.3-0.1 % Put 4 drops into left ear twice a day for 7 days. 4 drps otic (ear) left BID 7 days 7.5 mL 0RF H60.92 - Unspecified otitis externa, left ear Coding Level of Care Code Est Pt Level 4 (93736) Diagnoses Inflammation of left ear canal H60.92
[2024-08-23 13:47] VITALS: BP 118/80; PULSE 69; O2SAT 96; BMI 25.2
== END 2024-08-23 14:29 | disposition home or self-care (01) ==
PROVIDERS: PCP Internal Medicine; Visit Provider Nurse Practitioner Family
DX: H60.92 Unspecified otitis externa, left ear (principal)

== ENCOUNTER → 2024-08-23 13:02 | Outpatient (BNVA) | payer OTHER, SELFPAY | PROVIDERS: PCP Internal Medicine | DX: H60.92 Unspecified otitis externa, left ear (principal) | CPT/HCPCS: 99212 ==

== ENCOUNTER 2024-10-04 09:47 | Outpatient (AMB) | payer MEDICAID, SELFPAY ==
--- NOTE | 2024-10-04 10:55 | AM.OFFWIN_ITS ---
Intake Vital Signs 10/04/24 11:02 Weight 144 lb BP 120/90 H Blood Pressure Location Rt brachial Position Sitting Pulse 66 Pulse Source Pulse Oximeter Pulse Oximetry (%) 97 Oxygen Delivery Method Room Air Intake Visit Reasons: EP Lump on RT shoulder blade Intake Note: Patient here for lump on left shoulder blade area, limited ROM which started tuesday night. Patient Tobacco Use Status: Never used Tobacco Allergies No Known Allergies [No Known Allergies*] Allergy (Verified 10/04/24 11:03) Do you need a note to return to daycare/school/sports/work: No HPI EP Lump on RT shoulder blade HPI Details This note is constructed using voice recognition software. While every effort has been made to ensure accuracy, application tester errors may have been included. The patient is a 59 year old female who presents to the clinic today with left- sided back pain with ?lump?. She reports that she did a large birthday constitution party for her daughter's when later in the evening when she was putting everything away she noticed that she had some increased pain. The pain was sharp in nature. She found that it was quite difficult to lift her arm, or twist or bend forward. She denies any numbness or tingling in her hands or feet. She has tried ibuprofen, heat, which has helped somewhat in addition to Salonpas. [facility] Medical History Annual physical exam RSD (reflex sympathetic dystrophy) Hypertension Carpal tunnel syndrome on right Herniated cervical disc Fibromyalgia Surgical History H/O colonoscopy Family History Father Hypertension Mother Hypertension Social History Household Members: Spouse and Children Housing: House Alcohol intake: never Patient Tobacco Use Status: Never used Tobacco e-Cigarette/Vaping Use: Never Used Current occupational status: disabled Sexual orientation: Straight/Heterosexual Gender identity: Female Cognitive needs: No Hearing needs: No Vision needs: Yes Female Reproductive History Menstrual Age of Menarche: 10 Review of Systems Const All systems reviewed & are unremarkable except as noted in HPI and below Physical Exam Vital Signs: Last Vital Signs Pulse 66 10/04/24 11:02 BP 120/90 H 10/04/24 11:02 Pulse Ox 97 10/04/24 11:02 Oxygen Delivery Method Room Air 10/04/24 11:02 Const General: cooperative, healthy appearing, comfortable, no acute distress and well developed Orientation/consciousness: patient oriented x3 Limitations: no limitations Resp Effort & Inspection: normal respiratory effort and able to speak in complete sentences Back/Spine/Pelvis Other: Left thoracic area tender to palpation with increased muscle bulging and palpable spasm. No erythema, warmth, or ecchymosis. Left shoulder with limited abduction to approximately 95 degrees due to pain, and slight limitation in lateral rotation each direction due to pain. Distal neurovascular exam intact. Skin General skin exam: no rashes or lesions noted Neuro General: patient oriented x3 Extrem General: Yes normal to inspection Assessment & Plan Assessment & Plan (1) Thoracic back pain: Code(s): M54.6 - Pain in thoracic spine Qualifiers: Chronicity: acute Back pain laterality: left Qualified Code(s): M54.6 - Pain in thoracic spine Plan: Likely muscular in nature. Advised patient to continue with oral or topical NSAIDs, heat, and we will prescribe short duration of muscle relaxer for symptomatic management. Advised patient to follow up with worsening or failure to resolve with her PCP. She may benefit from physical therapy with prolonged symptoms. Plan See above for full details and plan. Medications: New cyclobenzaprine 5 mg PO Q8H PRN 10 tabs 0RF Muscle Spasm Coding Level of Care Code Est Pt Level 3 (24296) Diagnoses Acute left-sided thoracic back pain M54.6 Chronicity: acute Back pain laterality: left
[2024-10-04 11:02] VITALS: BP 120/90; PULSE 66; O2SAT 97
== END 2024-10-04 13:50 | disposition home or self-care (01) ==
PROVIDERS: PCP Internal Medicine; Visit Provider Registered Nurse
DX: M54.6 Pain in thoracic spine (principal)

== ENCOUNTER → 2024-10-04 09:47 | Outpatient (BNVA) | payer MEDICAID, SELFPAY | PROVIDERS: PCP Internal Medicine; Visit Provider Registered Nurse | DX: M54.6 Pain in thoracic spine (principal) | CPT/HCPCS: 99212 ==

== ENCOUNTER 2024-10-28 07:49 | Emergency (ER) | payer MEDICAID, SELFPAY ==
[2024-10-28 07:55] VITALS: BP 144/88; PULSE 75; RESP 20; TEMP 36; O2SAT 99; BMI 24.7
--- NOTE | 2024-10-28 08:19 | ED_ITS ---
HPI - Skin/Abscess/Foreign Bdy General Chief complaint: Skin/Abscess/Foreign Body Stated complaint: lump on shld blade Time Seen by Provider: 10/28/24 08:01 Source: patient Mode of arrival: ambulatory Limitations: no limitations History of Present Illness ED Provider: Ria Andre PA-C HPI narrative: 59 yo female with history of complex regional pain syndrome on chronic opiates, who presents to the ER for evaluation of nontraumatic left sided back pain for the last 1 month. She reports feeling swelling/lump in the area for the last few days. she was seen in the urgent care and prescribed flexeril without improvement. she reports the pain is located in her left upper back and radiates down her entire back on the left side. movement of the LUE and laying down make it worse. it is tender to touch. no recent fever, chills, N/V/D, chest pain or abdominal pain. no rashes or tick bites. her daughter took a photo of her back and noticed the area was swollen and red last night. MD complaint: discoloration and other (back pain) Onset (ago): week(s) Location: back Severity: severe Severity scale (1-10): 9 Quality: stabbing, aching and sharp Pain Consistency: constant Relieving factors: none Exacerbating factors: palpation and movement Context: none Associated symptoms: malaise Treatments prior to arrival: none Related Data Home Medications ?Medication ?Instructions ?Recorded ?Confirmed morphine 15 mg tablet,extended 15 mg PO BEDTIME 03/10/21 05/02/23 release gabapentin 600 mg tablet mg PO .4 times a day 09/24/22 05/02/23 tramadol 50 mg tablet 50 mg PO QID PRN 10/04/24 Previous Rx's ?Medication ?Instructions ?Recorded meclizine 25 mg tablet See Rx Instructions .Route 05/22/24 .COMPLEX #30 tabs metoprolol succinate 50 mg 50 mg PO DAILY #90 tabs 06/04/24 tablet,extended release 24 hr cyclobenzaprine 5 mg tablet 5 mg PO Q8H PRN Muscle Spasm #10 10/04/24 tabs methocarbamol 500 mg tablet 500 mg PO Q8H PRN muscle spasm #14 10/28/24 tabs naproxen 500 mg tablet 500 mg PO BID PRN pain #20 tabs 10/28/24 Allergies Allergy/AdvReac Type Severity Reaction Status Date / Time No Known Allergies Allergy Verified 10/28/24 07:56 [No Known Allergies*] Review of Systems Review of Systems: Yes all other systems are reviewed and are negative [facility] Past Medical History Medical History Annual physical exam RSD (reflex sympathetic dystrophy) Hypertension Carpal tunnel syndrome on right Herniated cervical disc Fibromyalgia Surgical History H/O colonoscopy Family History Family History Father Hypertension Mother Hypertension Social History Social History Household Members: Spouse and Children Housing: House Alcohol intake: never Patient Tobacco Use Status: Never used Tobacco e-Cigarette/Vaping Use: Never Used Advance Directives: No Advance Directives Information Provided: Yes Patient : No Current occupational status: disabled Sexual orientation: Straight/Heterosexual Gender identity: Female Cognitive needs: No Hearing needs: No Vision needs: Yes Physical Exam Vital Signs: Vital Signs: Last Vital Signs Temp 96.8 F 10/28/24 09:04 Pulse 75 10/28/24 09:04 Resp 20 10/28/24 09:04 BP 144/88 H 10/28/24 09:04 Pulse Ox 99 10/28/24 09:04 O2 Del Method Room Air 10/28/24 09:04 BMI result Body Mass Index 24.7 Appearance: Alert. Oriented X3. No acute distress. Head: normocephalic, atraumatic. Eyes: Pupils equal, round and reactive to light. ENT: Pharynx normal. No tonsillar swelling or exudate. Neck: Normal inspection. Neck supple. CVS: Normal heart rate and rhythm. Pulses normal. Respiratory: No respiratory distress. Breath sounds normal. Abdomen: Soft and nontender. +BS x4 Back: small area of mild erythema located inferiorly and medially to the left scapula without overlying warmth, no fluctuance, no induration, no apprecaited swelling. the soft tissues on the left side of her back are tender with palpable spasm. pain reproduced with movement of the left arm. Skin: Skin warm and dry. Normal skin color. Normal skin turgor. No rashes. Extremities: No lower extremity edema. No joint swelling. Neuro/psych: Oriented X 3. grossly normal, nonfocal. Normal speech and cogni tion. Medications Administered Discontinued Medications Generic Name Dose Route Start Last Admin Trade Name Freq PRN Reason Stop Dose Admin Ketorolac Tromethamine 30 mg 10/28/24 08:29 10/28/24 08:51 Ketorolac Tromethamine 30 Mg/Ml Vial IM 10/28/24 08:30 30 mg ONCE ONE Administration Medical Decision Making Medical Decision Making MDM Narrative: 59 yo female presenting with left sided back pain x1 month. soft tissues are soft with spasm. small area of redness without warmth, suspect is due to the topical patch she had on last night. no evidence of infection. no swelling will treat with NSAIDS and a different muscle relaxer as this seems primarily muscular in nature. she is on both tramadol and morphine at home advised to f/u with her PCP, she may benefit from PT. stable for d/c home Differential Diagnosis Differential Diagnoses: The differential diagnosis associated with the presentation includes lipoma, tick bite, skin irritation from salonpas/topical agent, muscular pain/spasm External Record Review External record reviewed: Outpatient record, Prior outpatient labs and Prior outpatient radiology Prescription Management I considered prescription management with: Pain Medication and Other (muscle relaxer) Chronic Conditions Patient?s care impacted by: Other (chronic pain) Critical Care Time Critical Care Time Critical Care Time: No Discharge Plan Discharge Clinical Impression: Muscle spasm Patient Disposition: Home, Self-Care Instructions: Muscle Spasm (ED) Additional Instructions: take the prescribed muscle relaxer as directed use heat to the area 3-4 times per day gently massage the area as able recommend following up with your PCP for PT referral If you develop new or worsening symptoms call 911 or come back to the ER for further evaluation. Prescriptions: New methocarbamol 500 mg tablet 500 mg PO Q8H PRN (Reason: muscle spasm) Qty: 14 0RF naproxen 500 mg tablet 500 mg PO BID PRN (Reason: pain) Qty: 20 0RF No Action meclizine 25 mg tablet See Rx Instructions .ROUTE .COMPLEX Qty: 30 0RF Dose Instruction: TAKE 1 TAB ORALLY DAILY NEEDED FOR MOTION SICKNESS Rx Instructions: TAKE 1 TAB ORALLY DAILY NEEDED FOR MOTION SICKNESS metoprolol succinate 50 mg tablet extended release 24 hr 50 mg PO DAILY Qty: 90 3RF morphine 15 mg tablet extended release 15 mg PO BEDTIME gabapentin 600 mg tablet PO .4 times a day tramadol 50 mg tablet 50 mg PO QID PRN cyclobenzaprine 5 mg tablet 5 mg PO Q8H PRN (Reason: Muscle Spasm) Qty: 10 0RF Interventions: ED Discharge Assessment Last Done: 10/28/24 09:04 Discharge Date/Time: 10/28/24 09:08 Print Language: Divehi
[2024-10-28] MEDS: Ketorolac Tromethamine 30 MG/ML VIAL IM (08:51)
[2024-10-28 09:04] VITALS: BP 144/88; PULSE 75; RESP 20; TEMP 36; O2SAT 99
== END 2024-10-28 09:08 | disposition home or self-care (01) ==
PROVIDERS: Emergency Provider Emergency Medicine; PCP Internal Medicine
DX: M62.830 Muscle spasm of back (principal); M54.50 Low back pain, unspecified; Z79.899 Other long term (current) drug therapy
CPT/HCPCS: 96372; 99284; J1885

== ENCOUNTER 2024-11-16 08:30 | Outpatient (REF) | payer MEDICAID, SELFPAY ==
[2024-11-16 11:44] LABS: MANUAL DIFF FLAG NO
[2024-11-16 11:48] LABS: Basophils Percent Auto 0.8 % (0-2); Eosinophils Absolute Auto 0.2 X10*3/uL (0.0-0.4); Hematocrit 39.8 % (37.0-47.0); Hemoglobin 13.1 g/dl (12.0-16.0); Imm Gran Abs Auto 0.02 X10*3/uL (0.00-0.03); Imm Gran Pct Auto 0.4 % (0.0-0.4); Lymphocytes Absolute Auto 1.4 X10*3/uL (1.2-4.9); Lymphocytes Percent Auto 26.1 % (20-40); Mean Corpuscular HGB Conc 32.9 g/dl (31.0-35.0); Mean Corpuscular Hemoglobin 30.5 pg (27.0-33.0); Mean Corpuscular Volume 92.8 fL (80.0-98.0); Mean Platelet Volume 10.6 fL (9.4-12.3); Monocytes Absolute Auto 0.4 X10*3/uL (0.1-1.2); Monocytes Percent Auto 7.3 % (2-11); Neutrophils Absolute Auto 3.2 x10*3/uL (2.0-8.3); Neutrophils Percent Auto 61.4 % (45-73); Platelet Count 230 X10*3/uL (160-400); Red Blood Count 4.29 X10*6/uL (4.20-5.50); Red Cell Distribution Width 13.2 % (11.0-16.0); White Blood Count 5.2 X10*3/uL (4.8-10.8)
[2024-11-16 12:11] LABS: Alanine Aminotransferase 18 U/L (0-31); Albumin Level 4.1 g/dL (3.5-5.0); Alkaline Phosphatase 81 U/L (39-117); Anion Gap 11 (12-20); Aspartate Amino Transferase 20 U/L (5-31); Bilirubin Total 0.3 mg/dL (0.0-1.0); Blood Urea Nitrogen 14 mg/dL (9-16); C Reactive Protein 0.53 mg/dL (< or = 0.50); Carbon Dioxide 32 mmol/L (22-29); Chloride 105 mmol/L (96-108); Cholesterol 205 mg/dL (<200); Estimated Glomerular Filt Rate > 60; Glucose Random 93 mg/dL (60-115); HDL Cholesterol 50 mg/dL (>40); LDL Cholesterol Calculated 132 mg/dL (<100); Potassium 4.1 mmol/L (3.3-5.1); Sodium 144 mmol/L (135-145); Total Protein 7.2 g/dL (6.5-8.0); Triglycerides 118 mg/dL (<150)
[2024-11-16 12:19] LABS: Syphilis Screen Nonreactive (Nonreactive)
[2024-11-16 12:21] LABS: TSH reflex Free T4 3.22 uIU/mL (0.32-4.0); Vitamin D 25-OH Total 46.2 ng/mL (>30)
[2024-11-16 12:25] LABS: Erythrocyte Sedimentation Rate 14 MM/HR (0-20)
[2024-11-16 13:35] LABS: Reflex LDLD? No
[2024-11-17 04:55] LABS: HBc Num1 0.13 S/CO (0.00-0.79); HBsAGNum1 0.36 S/CO (0.00-0.99); HIV AB/AG Nonreactive (Nonreactive); HIV Num 1 0.06 S/CO (0.00-0.99); Hepatitis A Antibody IgM 0.17 Index (0-0.79); Hepatitis B Core Antibody Nonreactive (Nonreactive); Hepatitis B Surface Antigen Negative (Negative); ~HepC Num1 0.07 S/CO (0.00-0.79); ~Hepatitis A Antibody IgM Nonreactive (Nonreactive); ~Hepatitis B Surface Antibody NONREACTIVE (Nonreactive); ~Hepatitis C Antibody Nonreactive (Nonreactive)
[2024-11-19 13:12] LABS: TS Negative Control Passed; TS Panel A 2; TS Panel B 0; TS Positive Control Passed; TSpotTB Negative (Negative)
== END 2024-11-16 08:31 | disposition home or self-care (01) ==
LOC: HO.HHCL 08:30
PROVIDERS: Visit Provider Internal Medicine
DX: M79.7 Fibromyalgia (principal); I10 Essential (primary) hypertension; G90.511 Complex regional pain syndrome I of right upper limb
CPT/HCPCS: 36415; 80053; 80061; 82306; 84443; 85025; 85652; 86140; 86481; 86704; 86706; 86709; 86780; 86803; 87340; 87389

== ENCOUNTER 2024-12-18 09:49 | Outpatient (REF) | payer MEDICAID, SELFPAY ==
--- NOTE | ~2024-12-18 | XR_ITS ---
EXAMINATION: XR KNEE, LEFT CLINICAL INFORMATION: acute letft knee swelilng x 1 week COMPARISON: 08/06/2022. TECHNIQUE: Four views of the left knee. FINDINGS: No fracture, dislocation, or suspicious bone lesion. Normal alignment. Joint spaces appear preserved. No significant arthritic change. Small enthesophyte superior patella. There is a prominent suprapatellar joint effusion present. No discrete soft tissue abnormality. XR/XR knee LT 3V IMPRESSION: 1. No fracture or dislocation or significant arthropathy. 2. Suprapatellar joint effusion. Electronically signed by: Luis Wallace MD 12/18/2024 11:[address] [facility]
--- OUTSIDE RECORDS SUMMARY | 2024-12-18 10:52 | XMS_ITS | Encounter Summary ---
Author Organization [employer] Address [address] [place] [address] Care Team Providers Care Director Of Volunteer Services Name Role Phone Chioma Krishnamurthy MD Primary Care Provider + Reason for Referral * Consultation (Routine) - Pending Review Specialty Diagnoses / Procedures Referred By Lucrecia carrasco Referred To Contact Orthopaedic Surgery Diagnoses Pain and swelling of left knee Brenda Galo MD [address] [place] [phone] Phone: tel: fax: Referral ID Status Reason Start Date Expiration Date Visits Requested Visits Authorized [id number] Pending Review Specialty Services Required 12/18/2024 12/18/2025 1 1 Reason for Visit * Reason Comments Joint Swelling Encounter Details Date Type Department Care Team ([facility] st Contact Info) Description 12/18/2024 9:20 AM EST Office Visit [facility] [address] [place] [address] [phone] Brenda Galo MD [address] [place] [address] [phone] Pain and swelling of left knee (Primary Dx) Social History Tobacco Use Types Packs/Day Years Used Date Smoking Tobacco: Never Passive Smoke Exposure: Never Smokeless Tobacco: Never Housing Stability Answer Date Recorded What is your housing situation today? I have josé miguel bynum 11/07/[address] you li ve. Do you have problems with any of the following? None of the above 11/07/2024 Food Insecurity Answer Date Recorded Within the past 12 months, y ou worried that your food would run out before you got money to buy more: Never True 11/07/2024 Within the past 12 months,th e food you bought just didn't last and you didn't have enough money to get more: Never True 09/2024 Transportation Answer Date Recorded In the past 12 months, has l ack of transportation kept you from medical appts, meetings, work or from getting things needed for daily living? No 11/07/2024 Utilities Answer Date Recorded In the past 12 months, has t he [employer], gas, oil or water company threatened to shut off services in your home? No 11/07/2024 Depression Answer Date Recorded Patient Health Questionnaire-2 Score 0 11/14/2024 Internet Access Answer Date Recorded Internet Access Q1 Yes 11/07/2024 Internet Access Q2 Not on file 11/07/2024 Comments No Sex and Gender Information Value Date Recorded Sex Assigned at Female 02/24/2024 10:23 AM EDT Legal Sex Female 10:19 AM EDT Gender Identity Female 02/24/2024 10:23 AM EDT Sexual Orientation Straight 11/02/2024 1: 22 PM EST documented as of this encounter Last Filed Vital Signs Vital Sign Reading Time Taken Comments Blood Pressure 134/83 12/18/2024 9:15 AM EST Pulse 82 12/18/2024 9:15 AM EST Temperature 36.6 ??C (97.9 ??F) 12/18/2024 9:15 AM ES T Respiratory Rate 16 12/18/2024 9:15 AM EST Oxygen Saturation 98% 12/18/2024 9:15 AM EST Inhaled Oxygen Concentration - - Weight 65.8 kg (145 lb) 12/18/2024 9:15 AM EST Height - - Body Mass Index 24.89 11/14/2024 9:31 AM EST documented in this encounter Progress Notes * Beata Nj MA - 12/18/2024 9:20 AM EST Subjective Patient ID: Mayelin Hughes is a 59 y.o. 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 Pt reports having knee pain on her left knee. She reports taking ibuprofen and putting bio freeze on her knee to try and alleviate the pain, as well as putting a wrap around her knee. She also notes she can't stand on her knee for too long without experiencing pain. Review of Systems Constitutional: Negative for fatigue, fever and unexpected weight change. Respiratory: Negative for cough. Cardiovascular: Negative for chest pain. Gastrointestinal: Negative for abdominal pain. Genitourinary: Negative for difficulty urinating. Objective Visit Vitals BP 134/83 (BP Location: Right arm, Patient Position: Sitting, BP Cuff Size: Adult) Pulse 82 Temp 97.9 ??F (36.6 ??C) (Temporal) Resp 16 Body mass index is 24.89 kg/m??. Physical Exam Constitutional: Appearance: Normal appearance. Musculoskeletal: Left knee: Effusion (Mild) present. No erythema. Decreased range of motion. Tenderness present overthe medial joint line and lateral joint line. Comments: Left knee does not have redness or warmth. Neurological: Mental Status: She is alert. Problem List Items Addressed This Visit Pain and swelling of left knee - Primary - Prescribed ibuprofen 600 MG tablet 12/18/24 - Ordered CBC auto differential 12/18/24 - Ordered Uric acid 12/18/24 - Ordered Lyme Disease Ab with Reflex to Blot (IgG, IgM) 12/18/24 - Ordered XR Knee 3 Views Left 12/18/24 - Referred to Orthopaedic Surgery 12/18/24 - ER precautions discussed. 12/18/24 - Seek medical attention for worsening symptoms. 12/18/24 Relevant Medications ibuprofen 600 MG tablet Other Relevant Orders CBC auto differential Uric acid Lyme Disease Ab with Reflex to Blot (IgG, IgM) XR Knee 3 Views Left Referral to Orthopaedic Surgery IBeata am serving as a scribe to document services personally performed by Dr. Brenda Galo, based on the patient's response to questions by provider and providers statements to me. documented in this encounter Miscellaneous Notes * Assessment & Plan Note - Beata Nj MA - 12/18/2024 10:14 AM EST Associated Problem(s): Pain and swelling of left knee - Prescribed ibuprofen 600 MG tablet 12/18/24 - Ordered CBC auto differential 12/18/24 - Ordered Uric acid 12/18/24 - Ordered Lyme Disease Ab with Reflex to Blot (IgG, IgM) 12/18/24 - Ordered XR Knee 3 Views Left 12/18/24 - Referred to Orthopaedic Surgery 12/18/24 - ER precautions discussed. 12/18/24 - Seek medical attention for worsening symptoms. 12/18/24 documented in this encounter Plan of Treatment Upcoming Encounters Date Type Department Care Team (Late st Contact Info) Description 01/04/2025 9:45 AM EST Office Visit [facility] [address] [place] [address] [phone] Chioma Krishnamurthy MD [address] [place] [address] [phone] Scheduled Orders Name Type Priority Associated Diagnoses Orde r Schedule CBC auto differential Lab Routine Pain and swelling of left knee Expected: 12/18/2024 (Approximate), Expires: 12/18/2025 Uric acid Lab Routine Pain and swelling of left knee Expected: 12/18/2024 (Approximate), Expires: 12/18/2025 Lyme Disease Ab with Reflex to Blot (IgG, IgM) Lab Routine Pain and swelling of left knee Expected: 12/18/2024, Expires: 12/18/2025 XR Knee 3 Views Left Imaging Routine Pain and swelling of left knee Expected: 12/18/2024, Expires: 12/18/2025 Scheduled Referrals Name Type Priority Associated Diagnoses Order Schedule Referral to Orthopaedic Surgery Outpatient Referral Routine Pain and swelling of left knee Expected: 12/18/2024 (Approximate), Expires: 12/18/2025 documented as of this encounter Visit Diagnoses Diagnosis Pain and swelling of left knee- Primary documented in this encounter Care Teams Director Of Volunteer Services Relationship Specialty Start Date End Date Chioma Krishnamurthy MD [address] [place] [address] [phone] PCP - General Internal Medicine 11/14/24 documented as of this encounter
--- OUTSIDE RECORDS SUMMARY | 2024-12-18 10:52 | XMS_ITS | Clinical Summary ---
Author Organization [employer] Address [address] [facility] 7[address] [place] [address] Care Team Providers Care Captain Cannery Tender Name Role Phone Chioma Krishnamurthy MD Primary Care Provider + Allergies No known active allergies Medications Multiple Vitamins-Minera ls (Oncovite) tablet Take 1 tablet by mouth Once per day. Active Zinc Acetate 25 MG capsule Take 1 capsule by mouth Once per day. Active tiZANidine (Zanaflex) 2 MG tabletIndicatio ns:Spasm of thoracic back muscle Take 1 or 2 tablets as needed for muscle spasm up to TID 30 tablet 4 Active gabapentin (Neurontin) 600 MG tablet Take 1 tablet by mouth 3 times daily. 4 Active metoprolol succinate XL (Toprol-XL) 50 MG 24 hr tablet Take 50 mg by mouth Once per day. 4 Active naproxen (Naprosyn) 500 MG tablet Take 500 mg by mouth with breakfast and with evening meal. 4 Active traMADol (Ultram) 50 MG tablet Take 100 mg by mouth every 6 (six) hours if needed. 4 Active ibuprofen 600 MG tabletIndicatio ns:Pain and swelling of left knee Take 1 tablet (600 mg) by mouth every 8 (eight) hours if needed for moderate pain or fever. 30 tablet 5 01/17/20 Active Active Problems Problem Noted Date Diagnosed Date Pain and swelling of left knee 12/18/2024 Overview (12/18/2024): - Prescribed ibuprofen 600 MG tablet 12/18/24 - Ordered CBC auto differential 12/18/24 - Ordered Uric acid 12/18/24 - Ordered Lyme Disease Ab with Reflex to Blot (IgG, IgM) 12/18/24 - Ordered XR Knee 3 Views Left 12/18/24 - Referred to Orthopaedic Surgery 12/18/24 - ER precautions discussed. 12/18/24 - Seek medical attention for worsening symptoms. 12/18/24 Assessment & Plan (12/18/2024 10:14 AM EST): - Prescribed ibuprofen 600 MG tablet 12/18/24 - Ordered CBC auto differential 12/18/24 - Ordered Uric acid 12/18/24 - Ordered Lyme Disease Ab with Reflex to Blot (IgG, IgM) 12/18/24 - Ordered XR Knee 3 Views Left 12/18/24 - Referred to Orthopaedic Surgery 12/18/24 - ER precautions discussed. 12/18/24 - Seek medical attention for worsening symptoms. 12/18/24 DDD (degenerative disc disease), cervical 2023 Primary hypertension 11/14/2024 Assessment & Plan (11/14/2024 11:07 AM EST): Controlled. Compliant w/meds Continue Metoprolol. Counseled re low salt diet/increase moderate physical activity. Check home BP BIW and prn CP/QUINTERO/UMANZOR Non smoking patient. Chronic right shoulder pain 10/26/2021 Easy bruising 03/02/2021 Fibromyalgia 02/02/2021 Assessment & Plan (11/14/2024 10:25 AM EST): We discussed with pt importance of staying active and treat pressure when needed. Will refer to PT prn. Discussed importance of good sleep, sleep hygiene, and avoid high carb meals. Advised to come to acupuncture clinic. Continue Gabapentin BID (prescribed for TID but does not take it regularly) Will try to minimize use of control substance especially morphine. Will consider SSRIs-SNRIs. Chronic, continuous use of opioids 10/20/2020 Assessment & Plan (11/14/2024 11:05 AM EST): She has been on skilled nursing morphine for pain management, currently cutting down. We discussed continuing to taper down Morphine as per Dr. Hall and ideally be off in next few months. Advised to continue Tramadol up to 4 tablets per day, discouraged to take extra prn and gave her information on acupuncture clinic. Will refer to chronic pain clinic for follow up on prescription of Tramadol only. We have done [employer] education re opiate side effects including dizziness, somnolence, constipation, urinary retention, dependance, etc. Patient is aware of the importance of avoiding any activity that requires vigilance while taking these meds including driving. Patient is to keep medications in a safe place. Neck pain 08/08/2019 Myalgia 08/25/2018 Chronic pain due to trauma 04/09/2018 Reflex sympathetic dystrophy of right upper extr emity 09/27/2017 Assessment & Plan (11/14/2024 11:06 AM EST): Pt has motion limitation on Rt arm due to work related injury more than 2 years ago. Continue management as above. Consider Trigger Point injections and PT. I gave her information about acupuncture clinic. Encounters Date Type Department Care Team Description 12/18/2024 9:20 AM EST Office Visit [facility] [address] [place] [phone] Brenda Galo MD Pain and swelling of left knee (Primary Dx) 11/14/2024 9:30 AM EST Office Visit [facility] [address] [place] [phone] Chioma Krishnamurthy MD Fibromyalgia (Primary Dx); DDD (degenerative disc disease), cervical; Reflex sympathetic dystrophy of right upper extremity; Chronic, continuous use of opioids; Primary hypertension; Encounter for immunization 11/14/2024 Travel 11/12/2024 Telephone [facility] [address] [place] [address] [phone] Liz Johnston MA Chart prep 11/07/2024 Patient Outreach [facility] [address] [place], [place] [phone] Chioma Krishnamurthy MD Pre-visit Planning (SDOH negative, Tobacco screening negative.) 11/02/2024 2:20 PM EST Office Visit [facility] [address] [place] [address] [phone] Carey Sharma ANP Spasm of thoracic back muscle (Primary Dx); Reflex sympathetic dystrophy of right upper extremity; [facility] (current) use of opiate analgesic 10/31/2024 Telephone [facility] [address] [place] [address] Chioma Krishnamurthy MD ER Follow-up (10/29 ED visit) from Last 3 Months Immunizations Name Administration Dates Next Due Influenza Injectable Quadriv alant Preservative Free IIV4 MDCK 11/03/2020 Influenza injectable quadriv alent IIV4 with preservative 08/28/2019 Influenza injectable quadrivalent preservative f ree 10/20/2018 Influenza, seasonal, injectable, preservative fr ee 11/14/2024,09/21/2017 Social History Tobacco Use Types Packs/Day Years Used Date Smoking Tobacco: Never Passive Smoke Exposure: Never Smokeless Tobacco: Never Tobacco Cessation:Counseling Given: Not Answered Housing Stability Answer Date Recorded What is [...] the past 12 months, has t he electric, gas, oil or water company threatened to [...] Orientation Straight 11/02/2024 1: 22 PM EST Last Filed Vital Signs Vital Sign Reading Time Taken Comments Blood Pressure 134/83 12/18/2024 9:15 AM EST Pulse 82 12/18/2024 9:15 AM EST Temperature 36.6 ??C (97.9 ??F) 12/18/2024 9:15 AM ES T Respiratory Rate 16 12/18/2024 9:15 AM EST Oxygen Saturation 98% 12/18/2024 9:15 AM EST Inhaled Oxygen Concentration - - Weight 65.8 kg (145 lb) 12/18/2024 9:15 AM EST Height 162.6 cm (5' 4 ) 11/14/2024 9:31 AM EST Body Mass Index 24.89 11/14/2024 9:31 AM EST Plan of Treatment Upcoming Encounters Date Type Department Care Team (Late st Contact Info) Description 01/04/2025 9:45 AM EST Office Visit [facility] [address] [place] [address] Chioma Krishnamurthy MD [address] [place], [place] [phone] Health Maintenance Due Date Last Done Comments CT Colonography 1965 Colonoscopy 1965 Colorectal Cancer Screening 1965 FIT DNA/Cologuard 1965 FIT 1965 FOBT 1965 Sigmoidoscopy 1965 Alcohol/Substance Use Screening 1977 DTaP/Tdap/Td Vaccines (1 - Tdap) 1984 Hepatitis B Vaccines (1 of 3 - 19+ 3-dose series) 1984 Pap Smear 1986 Cervical Cancer Screening 1995 HPV/Cotest 1995 Mammogram 2005 Zoster Vaccines (1 of 2) 2015 COVID-19 Vaccine ( season) 2024 SDOH Screening 11/07/2025 11/07/2024 Depression Screening 11/14/2025 11/14/2024, 11/14/20 24 Tobacco Screening 11/14/2025 11/14/2024 Lipid Panel 11/16/2029 11/16/2024 RSV Patients and Patients Aged 60 years or older (1 - 1-dose 75+ series) 2040 Influenza Vaccine Completed 11/14/2024, , 08/28/2019, Additional history exists HIV Screening Completed 11/16/2024 Hepatitis C Screening Completed 11/16/2024 HIB Vaccines Aged Out No longer eligi ble based on patient's age to complete this topic HPV Vaccines Aged Out No longer eligi ble based on patient's age to complete this topic Hepatitis A Vaccines Aged Out No long er eligible based on patient's age to complete this topic IPV Vaccines Aged Out No longer eligi ble based on patient's age to complete this topic Meningococcal Vaccine Aged Out No [place] eligible based on patient's age to complete this topic Pneumococcal Vaccine: Pediatrics (0 to 5 Years) and At-Risk Patients (6 to 64 Years) Aged Out No longer eligible based on patient's age to complete this topic RSV under 20 months Aged Out No longe r eligible based on patient's age to complete this topic Rotavirus Vaccines Aged Out No longer eligible based on patient's age to complete this topic Procedures Procedure Name Priority Date/Time Associated Diagnosis Comments T-SPOT(R).TB Routine 11/16/2024 8:33 AM EST Reflex sympathetic dystrophy of right upper extremity SYPHILIS SCREEN Routine 11/16/2024 8:33 AM EST Reflex sympathetic dystrophy of right upper extremity HEPATITIS PANEL, GENERAL Routine 11/16/2024 8:33 AM EST Reflex sympathetic dystrophy of right upper extremity HIV 1/2 ANTIGEN/ANTIBODY, FOURTH GENERATION W/RFL Routine 11/16/2024 8:33 AM EST Reflex sympathetic dystrophy of right upper extremity SED RATE BY MODIFIED WESTERGREN Routine 11/16/2024 8:33 AM EST Fibromyalgia C-REACTIVE PROTEIN Routine 11/16/2024 8: 33 AM EST Fibromyalgia CBC WITH AUTO DIFFERENTIAL Routine 11/16/2024 8:33 AM EST Fibromyalgia VITAMIN D,25-OH,TOTAL,IA Routine 11/16/2024 8:33 AM EST Fibromyalgia Primary hypertension TSH W/REFLEX TO FT4 Routine 11/16/2024 8 :33 AM EST Fibromyalgia Primary hypertension LIPID PANEL WITH REFLEX TO DIRECT LDL Routine 11/16/2024 8:33 AM EST Primary hypertension COMPREHENSIVE METABOLIC PANEL Routine 11/16/2024 8:33 AM EST Fibromyalgia Reflex sympathetic dystrophy of right upper extremity Primary hypertension from Last 3 Months Results * Syphilis Screen (11/16/2024 8:33 AM EST) Syphilis Screen Nonreactive Nonreactive [facility] Blood 11/16/2024 8:33 AM EST 11/16/2024 11:32 AM EST Chioma Krishnamurthy MD LAB BLOOD ORDERABLES Fin al Result Performing Organization Address City/State/[facility] Co de Phone Number [facility] [address] [place] [address] [phone] * Vitamin D, 25-Hydroxy, Total, Immunoassay (11/16/2024 8:33 AM EST) Vitamin D 25-OH Total 46.2 >30 ng/mL [facility] Comment:Health Based Referen ce Values*< 20 ng/mL Btjqsrbiv12-06 ng/mL Insufficient> 30 ng/mL Sufficient*Chelsea MONTERO. N Engl J Med. 2007;357:266-280Care must be taken in interpreting Vitamin D results fromdifferent laboratories and methodologies. Published datademonstrated that results from patients undergoinghemodialysis may show a negative bias when tested withvarious automated 25-OH vitamin D assays when compared toLC-MS/MS.When testing samples from patients whose predominant form ofVitamin D is Vitamin D2, such as patients receiving VitaminD2 supplementation, results that are subtherapeutic shouldbe confirmed with another method such as LC-MS/MS. Blood 11/16/2024 8:33 AM EST 11/16/2024 11:32 AM EST us Chioma Krishnamurthy MD LAB BLOOD ORDERABLES Fin al Result Performing Organization Address [facility] Co de Phone Number [facility] [address] [place] [phone] * T-SPOT??.TB (11/16/2024 8:33 AM EST) Pathologist [facility] [place] T Spot TB Negative Negative [facility] Comment:A negative test resu lt does not exclude the possibilityof exposure to or infection with Mycobacteriumtuberculosis (M. tuberculosis). Patients with recentexposure to TB infected individuals exhibiting anegative T-SPOT.TB result should be considered forretesting within 6 weeks or if other relevant clinicalsymptoms indicate. Results from T-SPOT.TB testing mustbe used in conjunction with each individual'sepidemiological history, current medical status,and results of other diagnostic evaluations.The T-SPOT.TB test is qualitative and results arereported as positive, borderline, or negative, giventhat the test controls perform as expected. In linewith the Centers for Disease Control and Prevention's2010 recommendation to report quantitative measurementsalongside the qualitative result, the laboratoryprovides spot counts for informational purposes only.The T-SPOT.TB test should not be interpreted as aquantitative test. TS PANEL A 2 [facility] TS PANEL B 0 [facility] Negative Control Passed [facility] Positive Control Passed [facility] Comment:For additional infor karon, please refer tohttp://education.goviral/faq/CYB174(This link is being provided for informational/educational purposes only.)THIS TEST WAS PERFORMED AT:[employer] [id number] [place] [id number] GORDON MD,PHD 11/16/2024 8:33 AM EST 11/16/2024 11:32 AM EST us Chioma Krishnamurthy MD LAB BLOOD ORDERABLES Fin al Result Performing Organization Address [facility] Co de Phone Number [facility] [address] [place] [phone] * TSH with Reflex to Free T4 (11/16/2024 8:33 AM EST) TSH reflex Free T4 3.22 0.32 - 4.0 uIU/mL [facility] Blood 11/16/2024 8:33 AM EST 11/16/2024 11:32 AM EST us Chioma Krishnamurthy MD LAB BLOOD ORDERABLES Fin al Result [facility] [address] [place] [address] [phone] * (ABNORMAL) Lipid Panel with Reflex to Direct LDL (11/16/2024 8:33 AM EST) Triglycerides 118 <150 mg/dL [facility] Comment:Desirable Triglyceri de: less than 150 mg/dLBorderline High Triglyceride 150-199 mg/dLHigh Triglyceride: 200-499 mg/dLVery High Triglyceride: greater than or equal to 5OO mg/dL Cholesterol 205(H) <200 mg/dL [facility] Comment:Desirable Cholestero l: less than 200 mg/dLBorderline High Cholesterol: 200-239 mg/dLHigh Cholesterol: greater than 239 mg/dL LDL Cholesterol Calculated 132(H) <100 mg/dL [facility] Comment:Desirable LDL: less than 100 mg/dLNear Optimal/Above Optimal LDL: 110- 129 mg/dLBorderline High LDL: 130-159 mg/dLHigh LDL: 160-189 mg/dLVery High LDL: greater than or equal to 190 mg/dL HDL Cholesterol 50 >40 mg/dL [facility] Comment:Desirable HDL: great er than 40 mg/dL Note: This HDL assay may give artificially low results in patients with liver disease. Blood 11/16/2024 8:33 AM EST 11/16/2024 11:32 AM EST us Chioma Krishnamurthy MD LAB BLOOD ORDERABLES Fin al Result Performing Organization Address [facility] Co de Phone Number [facility] [address] [place] [phone] * Hepatitis Panel, General (11/16/2024 8:33 AM EST) Pathologist [facility] [place] Hepatitis A IgM Nonreactive Nonreactive [facility] Comment:IgM antibodies to QUINTERO V not detected; does not exclude earlyacute or recovered HAV infection. ~Hepatitis B Surface Antibody NONREACTIVE Nonreactive [facility] Comment:Nonreactive: < 8.00 mIU/mL Hepatitis B Core Antibody Nonreactive Nonreactive [facility] Hepatitis C Antibody Nonreactive Nonreactive [facility] Comment:Antibodies to HCV no t detected; does not exclude early acuteHCV infection. Hepatitis B Surface Ag Negative Negative [facility] Blood 11/16/2024 8:33 AM EST 11/16/2024 11:32 AM EST Chioma Krishnamurthy MD LAB BLOOD ORDERABLES Fin al Result Performing Organization Address [facility] Co de Phone Number [facility] [address] [place] [phone] * CBC auto differential (11/16/2024 8:33 AM EST) Pathologist [facility] [place] White Blood Count 5.2 4.8 - 10.8 X10*3/uL [facility] Red Blood Count 4.29 4.20 - 5.50 X10*6/uL [facility] Hemoglobin 13.1 12.0 - 16.0 g/dl [facility] Hematocrit 39.8 37.0 - 47.0 % [facility] Mean Corpuscular Volume 92.8 80.0 - 98.0 fL [facility] Mean Corpuscular Hemoglobin 30.5 27.0 - 33.0 pg [facility] Mean Corpuscular HGB Conc 32.9 31.0 - 35.0 g/dl [facility] Red Cell Distribution Width 13.2 11.0 - 16.0 % [facility] Platelet Count 230 160 - 400 X10*3/uL [facility] Mean Platelet Volume 10.6 9.4 - 12.3 fL [facility] Neutrophils Percent Auto 61.4 45 - 73 % [facility] Imm Gran Pct Auto 0.4 0.0 - 0.4 % [facility] Lymphocytes Percent Auto 26.1 20 - 40 % [facility] Monocytes Percent Auto 7.3 2 - 11 % [facility] Eosinophils Percent Auto 4.0 0 - 4 % [facility] Basophils Percent Auto 0.8 0 - 2 % [facility] NRBC Pct Auto 0.0 0.0 - 0.2 /100WBC [facility] Neutrophils Absolute Auto 3.2 2.0 - 8.3 x10*3/uL [facility] Imm Gran Abs Auto 0.02 0.00 - 0.03 X10*3/uL [facility] Lymphocytes Absolute Auto 1.4 1.2 - 4.9 X10*3/uL [facility] Monocytes Absolute Auto 0.4 0.1 - 1.2 X10*3/uL [facility] Eosinophils Absolute Auto 0.2 0.0 - 0.4 X10*3/uL [facility] Basophils Absolute Auto 0.0 0.0 - 0.2 X10*3/uL [facility] NRBC Abs Auto 0.000 0.0 - 0.012 X10*3/uL [facility] Blood Venous blood specimen / Unknown 11/16/2024 8:33 AM EST 11/16/2024 11:32 AM EST us Chioma Krishnamurthy MD LAB BLOOD ORDERABLES Fin al Result [facility] [address] [place] [phone] * HIV-1/2 Antigen and Antibodies, Fourth Generation, with Reflexes (11/16/2024 8:33 AM EST) HIV AB/AG Nonreactive Nonreactive [facility] Comment:HIV-1 p24 Ag and/or HIV-1/HIV-2 Ab not detected.A test result that is nonreactive does not exclude thepossibility of exposure to or infection with HIV-1 and/orHIV-2. Nonreactive results in this assay for individualswith prior exposure to HIV-1 and/or HIV-2 may be due toantigen and antibody levels that are below the limit ofdetection of this assay.The [employer] HIV Ag/Ab Combo assay result andsupplemental assay results should be interpreted inconjunction with the patient's clinical presentation,history and other laboratory results. If the results areinconsistent with clinical evidence, additional testing issuggested to confirm the result. Blood Venous blood specimen / Unknown 11/16/2024 8:33 AM EST 11/16/2024 11:32 AM EST us Chioma Krishnamurthy MD LAB BLOOD ORDERABLES Fin al Result Performing Organization Address [facility] Co de Phone Number [facility] [address] [place] [phone] * Sed Rate by Modified Westergren (11/16/2024 8:33 AM EST) Pathologist [facility] [place] Erythrocyte Sedimentation Rate 14 0 - 20 MM/HR [facility] Comment:Patients with polycy themia and many hemoglobin abnormalitiesmay have depressed sed rates whereas patients with anemiamay have elevated sed rates. Blood Venous blood specimen / Unknown 11/16/2024 8:33 AM EST 11/16/2024 11:32 AM EST Chioma Krishnamurthy MD LAB BLOOD ORDERABLES Fin al Result Performing Organization Address [facility] Co de Phone Number [facility] [address] [place] [phone] * (ABNORMAL) C-reactive Protein (11/16/2024 8:33 AM EST) [facility] C Reactive Protein 0.53(H) < or = 0.50 mg/dL [facility] Blood Venous blood specimen / Unknown 11/16/2024 8:33 AM EST 11/16/2024 11:32 AM EST us Chioma Krishnamurthy MD LAB BLOOD ORDERABLES Fin al Result [facility] [address] [place] [phone] * (ABNORMAL) Comprehensive Metabolic Panel (11/16/2024 8:33 AM EST) Sodium 144 135 - 145 mmol/L [facility] Potassium 4.1 3.3 - 5.1 mmol/L [facility] Chloride 105 96 - 108 mmol/L [facility] Carbon Dioxide 32(H) 22 - 29 mmol/L [facility] Anion Gap 11(L) - 20 [facility] Urea Nitrogen (BUN) 14 9 - 16 mg/dL [facility] Creatinine, Serum 0.74 0.5 - 1.4 mg/dL [facility] Estimated Glomerular Filt Rate >60 [facility] Comment:Chronic Kidney Disea se: Estimated GFR < 60 mL/min/1.56b9Zoalyw Kidney Disease: Estimated GFR < 15 mL/min/1.73m2 Glucose 93 60 - 115 mg/dL [facility] Calcium 9.0 8.4 - 10.2 mg/dL [facility] Bilirubin, Total 0.3 0.0 - 1.0 mg/dL [facility] Aspartate Amino Transferase 20 5 - 31 U/L [facility] Alanine Aminotransferase 18 0 - 31 U/L [facility] Total Protein 7.2 6.5 - 8.0 g/dL [facility] Albumin Level 4.1 3.5 - 5.0 g/dL [facility] Alkaline Phosphatase 81 39 - 117 U/L [facility] Blood Venous blood specimen / Unknown 11/16/2024 8:33 AM EST 11/16/2024 11:32 AM EST Chioma Krishnamurthy MD LAB BLOOD ORDERABLES Fin al Result [facility] [address] [place] [phone] from Last 3 Months [facility] Care Teams Captain Cannery Tender Relationship Specialty Start Date End Date Chioma Krishnamurthy MD [address] [place] [phone] PCP - General Internal Medicine 11/14/24
--- OUTSIDE RECORDS SUMMARY | 2024-12-18 10:52 | XMS_ITS | Encounter Summary ---
Author Organization [employer] Address [address] [facility] 7 [place] [address] Care Team Providers Care Cutting Table Operator First Name Role Phone Chioma Krishnamurthy MD Primary Care Provider + Reason for Visit * Reason Onset Date Comments New Patient 08/17/2024 Encounter Details Date Type Department Care Team ([facility] st Contact Info) Description 08/17/[address] [facility] [address] [place], [place] [phone] Jacob Boyd MD [address] [place], [place] [phone] New Patient Social History Tobacco Use Types Packs/Day Years Used Date Smoking Tobacco: Never Assessed Comments Unknown Sex and Gender Information Value Date Recorded Sex Assigned at Female 02/24/2024 10:23 AM EDT Legal Sex Female 10:19 AM EDT Gender Identity Female 02/24/2024 10:23 AM EDT Sexual Orientation Straight 11/02/2024 1: 22 PM EST documented as of this encounter Miscellaneous Notes * Telephone Encounter - Tigist Hylton - 08/17/2024 3:49 PM EDT Zero availability at the moment pt will be added to new pt list as 08/17/2024 * Telephone Encounter - Tin Fatima - 08/17/2024 3:35 PM EDT Tc from pt calling in regards to message new pt appt stating she was advised to have insurance switched to [employer] C[employer] and she is requesting to reschedule new pt appt. Please contact pt at [phone]. documented in this encounter Plan of Treatment Upcoming Encounters Date Type Department Care Team (Late st Contact Info) Description 01/04/2025 9:45 AM EST Office Visit [facility] [address] [place] [phone] Chioma Krishnamurthy MD [address] [place] [phone] documented as of this encounter Visit Diagnoses Not on filedocumented in this encounter Care Teams Cutting Table Operator First Relationship Specialty Start Date End Date Chioma Krishnamurthy MD [address] [place] [phone] PCP - General Internal Medicine 11/14/24 documented as of this encounter
== END 2024-12-18 09:50 | disposition home or self-care (01) ==
LOC: HO.HHCX 09:49
PROVIDERS: Visit Provider Family Medicine
DX: M25.562 Pain in left knee (principal); M25.462 Effusion, left knee
CPT/HCPCS: 73562

== ENCOUNTER → 2024-12-18 09:49 | Outpatient (BNV) | payer MEDICAID, SELFPAY | PROVIDERS: Visit Provider Radiology Diagnostic Radiology | DX: M25.462 Effusion, left knee (principal) | CPT/HCPCS: 73562 ==

== ENCOUNTER 2025-01-21 09:47 | Outpatient (AMB) | payer BC, SELFPAY ==
--- NOTE | 2025-01-21 09:48 | MHC.OFFVIS ---
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 She is a long time opiate user managed by Pain Mgmt at [facility]. Patient reports that she has had ongoing & worsening pain for almost a year now. Denies injuru. She reports increased pain with flexion and extension, standing and walking. She was using an shin wrap for compression and OTC knee brace to use with prolonged periods of walking which helps. She has had no previous treatments for her symtpoms. She does some stretching which increases her pain. 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 She is a long time opiate user managed by Pain Mgmt at [facility]. Patient reports that she has had ongoing & worsening pain for almost a year now. Denies injury. She reports increased pain with flexion and extension, standing and walking. She was using an shin wrap for compression and OTC knee brace to use with prolonged periods of walking which helps. She has had no previous treatments for her symptoms. She does some stretching which increases her pain. She does describe a recent episode of prepatellar bursitis. [facility] Medical History Annual physical exam RSD (reflex sympathetic dystrophy) Hypertension Carpal tunnel syndrome on right Herniated cervical disc Fibromyalgia Surgical History H/O colonoscopy Family History Father Hypertension Mother Hypertension Social History Household Members: Spouse and Children Housing: House Alcohol intake: never Patient Tobacco Use Status: Never used Tobacco e-Cigarette/Vaping Use: Never Used Current occupational status: disabled Sexual orientation: Straight/Heterosexual Gender identity: Female Cognitive needs: No Hearing needs: No Vision needs: Yes Female Reproductive History Menstrual Age of Menarche: 10 Physical Exam Extrem Other: On exam there is tenderness over the medial compartment of the left knee with a mildly positive medial José Antonio's. She has a trace knee effusion. There is some swelling in the rahel patellar region that may be consistent with bursitis although it is not painful and slightly atypical. She has an negative anterior drawer. Ligamentous laxity is absent. Office Procedures Joint Inj/Aspir; Non-Pain Clin Joint Injection/Drain Details: Injected 1 mL of Decadron and 3 mL 1% lidocaine and 3 mL of 0.25% Marcaine. Site was prepped using aseptic technique. Patient tolerated the procedure well. Shoulders, Hips, Knees, Knee Large Joint Injection : Left Knee Coding Procedure code (CPT) selection complete Results Reviewed Results Reviewed: Normal Knee radiographs Assessment & Plan Assessment & Plan (1) Effusion, left knee: Code(s): M25.462 - Effusion, left knee Category: Medical Plan: Trace effusion left knee. I injected her left knee today. I recommend physical therapy. After physical therapy we will do a telehealth visit. If her pain persists we may consider more advanced imaging. (2) Prepatellar bursitis, left knee: Code(s): M70.42 - Prepatellar bursitis, left knee Category: Medical Plan: Atypical presentation but may be contributing to some of her symptoms. Physical therapy written. Orders: Orders XR knee LT 2V Today Vandana Jimenez PA-C M25.569 - Pain in unspecified knee PT Evaluation and Treatment Today Chaz Mayen MD M25.462 - Effusion, left knee, M70.42 - Prepatellar bursitis, left knee XR knee RT 1V Today Vandana Jimenez PA-C M25.569 - Pain in unspecified knee Coding Level of Care Code New Pt Level 3 (13076) Diagnoses Effusion, left knee M25.462 Prepatellar bursitis, left knee M70.42 CPT Codes Shoulders, Hips, Knees, - Knee Large Joint Injection : Left Knee ([id number])
--- OUTSIDE RECORDS SUMMARY | 2025-01-21 10:44 | XMS_ITS | Clinical Summary ---
Author Organization [email or web address] Address [address] [facility] [address] [place] [address] Care Team Providers Care Gold Leaf Layer Name Role Phone Chioma Krishnamurthy MD Primary [...] pain or fever. 30 tablet 5 01/17/20 25 Active Problems Problem Noted Date Diagnosed Date Pain and swelling of left knee 12/18/2024 Overview (12/18/2024): - Prescribed ibuprofen 600 MG tablet 12/18/24 - Ordered CBC auto differential 12/18/24 - Ordered Uric acid 12/18/24 - Ordered Lyme Disease Ab with Reflex to Blot (IgG, IgM) 12/18/24 - 12/18/24 XR/XR knee LT 3V IMPRESSION: No fracture or dislocation or significant arthropathy. Suprapatellar joint effusion. - Referred to Orthopaedic Surgery 12/18/24 - [...] 11:05 AM EST): She has been on penitentiary morphine for pain management, currently cutting down. [...] Description 12/18/2024 9:20 AM EST Office Visit [facility] [address] [place] [phone] Brenda Galo MD Pain and swelling of left knee (Primary Dx) 11/14/2024 9:30 AM EST Office Visit [address] [phone] Chioma Krishnamurthy MD Fibromyalgia (Primary Dx); DDD (degenerative disc disease), cervical; Reflex sympathetic dystrophy of right upper extremity; Chronic, continuous use of opioids; Primary hypertension; Encounter for immunization 11/14/2024 Travel 11/12/[address] [address] Liz Johnston [place] Chart prep 11/07/2024 Patient Outreach [facility] [address] [place], [place] [phone] Chioma Krishnamurthy MD Pre-visit Planning (SDOH negative, Tobacco screening negative.) 11/02/2024 2:20 PM EST Office Visit [facility] [address] [place] [address] [phone] Carey Sharma ANP Spasm of thoracic back muscle (Primary Dx); Reflex sympathetic dystrophy of right upper extremity; 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 10/31/2024 Telephone [facility] [address] [place] [phone] Chioma Krishnamurthy MD ER Follow-up (10/29 [...] Care Team (Late st Contact Info) Description 03/07/2025 10:15 AM EDT Office Visit [facility] [address] [place], [place] [phone] Chioma Krishnamurthy MD [address] [place] [address] Health Maintenance Due Date Last Done Comments CT Colonography 1965 Colonoscopy 1965 Colorectal Cancer Screening 1965 FIT DNA/Cologuard 1965 FIT 1965 FOBT 1965 Sigmoidoscopy 1965 Alcohol/Substance Use Screening 1977 DTaP/Tdap/Td Vaccines (1 - Tdap) 1984 Hepatitis B Vaccines (1 of 3 - 19+ 3-dose series) 1984 Pap Smear 1986 Cervical Cancer Screening 1995 HPV/Cotest 1995 Mammogram 2005 Pneumococcal Vaccine: 50+ Years (1 of 1 - PCV) 2015 Zoster Vaccines (1 of 2) 2015 COVID-19 Vaccine (1 - 2023- season) 2024 SDOH Screening 11/07/2025 11/07/2024 Depression [...] Procedure Name Priority Date/Time Associated Diagnosis Comments XR KNEE 3 VIEWS LEFT Routine 12/18/2024 9:49 AM EST Pain and swelling of left knee T-SPOT(R).TB Routine 11/16/2024 8:33 AM EST Reflex [...] hypertension from Last 3 Months Results * XR Knee 3 Views Left (12/18/2024 9:49 AM EST) Anatomical Region Laterality Modality Lower Extremities, Knee Left Radiogra phic Imaging 12/18/2024 9:49 AM EST Narrative 12/18/2024 11:22 AM EST ?[facility] ?[address] ?[place] [address] ?XRay Report ? Signed ? Patient: SaulJo Geiger ?MR#: [id number] ? : 1965 ?Acct:[id number] ? Age/Sex: 59 / F ?ADM Date: 12/18/24 ? Loc: HO.HHCX ? Attending Dr: Brenda Galo MD ? Ordering Physician: Brenda Galo MD ?? Date of Service: 12/18/24 ?? Procedure(s): XR knee LT 3V ?? Accession Number(s): [id number] ? cc: Brenda Galo MD ? EXAMINATION: ?? XR KNEE, LEFT ? CLINICAL INFORMATION: ?? acute letft knee swelilng x 1 week ? COMPARISON: ?? 08/06/2022. ? TECHNIQUE: ?? Four views of the left knee. ? FINDINGS: ?? No fracture, dislocation, or suspicious bone lesion. Normal alignment. ?? Joint spaces appear preserved. No significant arthritic change. ?? Small enthesophyte superior patella. ? There is a prominent suprapatellar joint effusion present. ? No discrete soft tissue abnormality. ? XR/XR knee LT 3V ?? IMPRESSION: ?? 1. No fracture or dislocation or significant arthropathy. ?? 2. Suprapatellar joint effusion. ? Electronically signed by: ??Luis Wallace MD ??12/18/2024 11:19 AM EST RP ? Dictated By: ?Luis Wallace MD ? Signed By: ?<Electronically signed by Luis Wallace MD in OV> ?12/18/24 1119 ? DD/ 0949 ? TD/TT: 12/18/24 1000 ? Unit Receptionist: ? Procedure Note Don[place]eter, Image - 12/18/[address] [address] XRay Report Signed Patient: Jo Hughes MMR#: [id number] : 1965Acct:[id number] Age/Sex: 59 / FADM Date: 12/18/24 Loc: HO.HHCX Attending Dr: Brenda Galo MD Ordering Physician: Brenda Galo MD Date of Service: 12/18/24 Procedure(s): XR knee LT 3V Accession Number(s): [id number] cc: Brenda Galo MD EXAMINATION: XR KNEE, LEFT CLINICAL INFORMATION: acute letft knee swelilng x 1 week COMPARISON: 08/06/2022. TECHNIQUE: Four views of the left knee. FINDINGS: No fracture, dislocation, or suspicious bone lesion. Normal alignment. Joint spaces appear preserved. No significant arthritic change. Small enthesophyte superior patella. There is a prominent suprapatellar joint effusion present. No discrete soft tissue abnormality. XR/XR knee LT 3V IMPRESSION: 1. No fracture or dislocation or significant arthropathy. 2. Suprapatellar joint effusion. Electronically signed by: Luis Wallace MD 12/18/2024 11:19 AM EST Dictated By: Luis Wallace MD Signed By: <Electronically signed by Lius Wallace MD in OV> 12/18/24 1119 DD/ 0949 TD/TT: 12/18/24 1000 Unit Receptionist: Brenda Galo MD IMG XR PROCEDURES Edited R esult - Final * Syphilis Screen (11/16/2024 8:33 AM EST) Syphilis Screen Nonreactive Nonreactive [facility] Blood 11/16/2024 8:33 AM EST 11/16/2024 11:32 AM EST Chioma Krishnamurthy MD LAB BLOOD ORDERABLES Fin al Result Performing Organization Address City/[facility] Co de Phone Number [facility] [address] [place] [phone] * Vitamin D, 25-Hydroxy, Total, Immunoassay (11/16/2024 8:33 AM EST) Vitamin D 25-OH Total 46.2 >30 ng/mL [facility] Comment:Health Based Referen ce Values*< 20 ng/mL Azzqavwzi13-06 ng/mL Insufficient> 30 ng/mL Sufficient*Chelsea MONTERO. N [...] ORDERABLES Fin al Result Performing Organization Address City/[facility]/ZIP Co de Phone Number [facility] [address] [place] [phone] * T-SPOT??.TB (11/16/2024 8:33 AM EST) T Spot TB Negative Negative [facility] Comment:A negative test resu lt [...] as aquantitative test. TS PANEL A 2 [facility] TS PANEL B 0 [facility] Negative Control Passed [facility] Positive Control Passed [facility] Comment:For additional infor matanais, please refer tohttp://education.Regalister/faq/QQA161(This link is being provided for informational/educational purposes only.)THIS TEST WAS PERFORMED AT:[facility] [place] [address]FZKOEEWDANIEL GORDON MD,PHD 11/16/2024 8:33 AM EST 11/16/2024 11:32 AM EST us Chioma Krishnamurthy MD LAB BLOOD ORDERABLES Fin al Result [facility] [address] [place] [address] [phone] * TSH with Reflex to Free T4 (11/16/2024 8:33 AM EST) TSH reflex Free T4 3.22 0.32 - 4.0 uIU/mL [facility] Blood 11/16/2024 8:33 AM EST 11/16/2024 11:32 AM EST us Chioma Krishnamurthy MD LAB BLOOD ORDERABLES Fin al Result Performing Organization Address [facility] Co de Phone Number [facility] [address] [place] [phone] * (ABNORMAL) Lipid Panel with Reflex to Direct LDL (11/16/2024 8:33 AM EST) Triglycerides 118 <150 mg/dL [facility] Comment:Desirable Triglyceri de: less than 150 mg/dLBorderline High Triglyceride 150-199 mg/dLHigh Triglyceride: 200-499 mg/dLVery High Triglyceride: greater than or equal to 5OO mg/dL Cholesterol 205(H) <200 mg/dL [facility] Comment:Desirable Cholestero l: less than 200 mg/dLBorderline High Cholesterol: 200-239 mg/dLHigh Cholesterol: greater than 239 mg/dL LDL Cholesterol Calculated 132(H) <100 mg/dL [facility] Comment:Desirable LDL: less than 100 mg/dLNear Optimal/Above Optimal LDL: 110- 129 mg/dLBorderline High LDL: 130-159 mg/dLHigh LDL: 160-189 mg/dLVery High LDL: greater than or equal to 190 mg/dL HDL Cholesterol 50 >40 mg/dL [facility] Comment:Desirable HDL: great er than 40 mg/dL Note: This HDL assay may give artificially low results in patients with liver disease. Blood 11/16/2024 8:33 AM EST 11/16/2024 11:32 AM EST us Chioma Krishnamurthy MD LAB BLOOD ORDERABLES Fin al Result Performing Organization Address [facility]/ZIP Co de Phone Number [facility] [address] [place] [phone] * Hepatitis Panel, General (11/16/2024 8:33 AM EST) Hepatitis A IgM Nonreactive Nonreactive [facility] Comment:IgM antibodies to QUINTERO V not detected; does not exclude earlyacute or recovered HAV infection. ~Hepatitis B Surface Antibody NONREACTIVE Nonreactive [facility] Comment:Nonreactive: < 8.00 mIU/mL Hepatitis B Core Antibody Nonreactive Nonreactive [facility] Hepatitis C Antibody Nonreactive Nonreactive [facility] Comment:Antibodies to HCV no t detected; does not exclude early acuteHCV infection. Hepatitis B Surface Ag Negative Negative [facility] Blood 11/16/2024 8:33 AM EST 11/16/2024 11:32 AM EST us Chioma Krishnamurthy MD LAB BLOOD ORDERABLES Fin al Result [facility] [address] [place] [phone] [phone] * CBC auto differential (11/16/2024 8:33 AM EST) White Blood Count 5.2 4.8 - 10.8 X10*3/uL [facility] Red Blood Count 4.29 4.20 - 5.50 X10*6/uL [facility] Hemoglobin 13.1 12.0 - 16.0 g/dl [facility] Hematocrit 39.8 37.0 - 47.0 % [facility] Mean Corpuscular Volume 92.8 80.0 - 98.0 fL [facility] Mean Corpuscular Hemoglobin 30.5 27.0 - 33.0 pg [facility] Mean Corpuscular HGB Conc 32.9 31.0 - 35.0 g/dl [facility] Red Cell Distribution Width 13.2 11.0 - 16.0 % [facility] Platelet Count 230 160 - 400 X10*3/uL [facility] Mean Platelet Volume 10.6 9.4 - 12.3 fL [facility] Neutrophils Percent Auto 61.4 45 - 73 % [facility] Imm Gran Pct Auto 0.4 0.0 - 0.4 % [facility] Lymphocytes Percent Auto 26.1 20 - 40 % [facility] Monocytes Percent Auto 7.3 2 - 11 % [facility] Eosinophils Percent Auto 4.0 0 - 4 % [facility] Basophils Percent Auto 0.8 0 - 2 % [facility] NRBC Pct Auto 0.0 0.0 - 0.2 /100WBC [facility] Neutrophils Absolute Auto 3.2 2.0 - 8.3 x10*3/uL [facility] Imm Gran Abs Auto 0.02 0.00 - 0.03 X10*3/uL [facility] Lymphocytes Absolute Auto 1.4 1.2 - 4.9 X10*3/uL [facility] Monocytes Absolute Auto 0.4 0.1 - 1.2 X10*3/uL [facility] Eosinophils Absolute Auto 0.2 0.0 - 0.4 X10*3/uL [facility] Basophils Absolute Auto 0.0 0.0 - 0.2 X10*3/uL [facility] NRBC Abs Auto 0.000 0.0 - 0.012 X10*3/uL [facility] Blood Venous blood specimen / Unknown 11/16/2024 8:33 AM EST 11/16/2024 11:32 AM EST us Chioma Krishnamurthy MD LAB BLOOD ORDERABLES Fin al Result [facility] [address] [place] [phone] * HIV-1/2 Antigen and Antibodies, Fourth Generation, with Reflexes (11/16/2024 8:33 AM EST) HIV AB/AG Nonreactive Nonreactive [facility] Comment:HIV-1 p24 Ag and/or HIV-1/HIV-2 Ab not detected.A test result that is nonreactive does not exclude thepossibility of exposure to or infection with HIV-1 and/orHIV-2. Nonreactive results in this assay for individualswith prior exposure to HIV-1 and/or HIV-2 may be due toantigen and antibody levels that are below the limit ofdetection of this assay.The mapp2linkniFollica HIV Ag/Ab Combo assay result andsupplemental assay results should be interpreted inconjunction with the patient's clinical presentation,history and other laboratory results. If the results areinconsistent with clinical evidence, additional testing issuggested to confirm the result. Blood Venous blood specimen / Unknown 11/16/2024 8:33 AM EST 11/16/2024 11:32 AM EST us Chioma Krishnamurthy MD LAB BLOOD ORDERABLES Fin al Result Performing Organization Address [facility] Co de Phone Number [facility] [address] [place] [phone] * Sed Rate by Modified Westergren (11/16/2024 8:33 AM EST) Erythrocyte Sedimentation Rate 14 0 - 20 MM/HR [facility] Comment:Patients with polycy themia and many hemoglobin abnormalitiesmay have depressed sed rates whereas patients with anemiamay have elevated sed rates. Blood Venous blood specimen / Unknown 11/16/2024 8:33 AM EST 11/16/2024 11:32 AM EST us Chioma Krishnamurthy MD LAB BLOOD ORDERABLES Fin al Result Performing Organization Address [facility] Co de Phone Number [facility] [address] [place] [phone] * (ABNORMAL) C-reactive Protein (11/16/2024 8:33 AM EST) C Reactive Protein 0.53(H) < or = 0.50 mg/dL [facility] Blood Venous blood specimen / Unknown 11/16/2024 8:33 AM EST 11/16/2024 11:32 AM EST Chioma Krishnamurthy MD LAB BLOOD ORDERABLES Fin al Result Performing Organization Address City/[facility]/ZIP Co de Phone Number [facility] [address] [place] [phone] * (ABNORMAL) Comprehensive Metabolic Panel (11/16/2024 8:33 AM EST) Sodium 144 135 - 145 mmol/L [facility] Potassium 4.1 3.3 - 5.1 mmol/L [facility] Chloride 105 96 - 108 mmol/L [facility] Carbon Dioxide 32(H) 22 - 29 mmol/L [facility] Anion Gap 11(L) 12 - 20 [facility] Urea Nitrogen (BUN) 14 9 - 16 mg/dL [facility] Creatinine, Serum 0.74 0.5 - 1.4 mg/dL [facility] Estimated Glomerular Filt Rate >60 [facility] Comment:Chronic Kidney Disea se: Estimated GFR < 60 mL/min/1.33b6Wczomp Kidney Disease: Estimated GFR < 15 mL/min/1.73m2 Glucose 93 60 - 115 mg/dL [facility] Calcium 9.0 8.4 - 10.2 mg/dL [facility] Bilirubin, Total 0.3 0.0 - 1.0 mg/dL [facility] Aspartate Amino Transferase 20 5 - 31 U/L [facility] Alanine Aminotransferase 18 0 - 31 U/L [facility] Total Protein 7.2 6.5 - 8.0 g/dL [facility] Albumin Level 4.1 3.5 - 5.0 g/dL [facility] Alkaline Phosphatase 81 39 - 117 U/L [facility] Blood Venous blood specimen / Unknown 11/16/2024 8:33 AM EST 11/16/2024 11:32 AM EST us Chioma Krishnamurthy MD LAB BLOOD ORDERABLES Fin al Result Performing Organization Address City/[facility]/ZIP Co de Phone Number [facility] [address] [place] [address] [phone] from Last 3 Months Insurance [facility] Care Teams Gold Leaf Layer Relationship Specialty Start Date End Date Chioma Krishnamurthy MD [address] [place] [phone] PCP - General Internal Medicine 11/14/24
--- OUTSIDE RECORDS SUMMARY | 2025-01-21 10:44 | XMS_ITS | Encounter Summary ---
Author Organization [employer] Address [address] [facility] 7 [place] [address] Care Team Providers Care Slitter Scorer Cut Off Operator Name Role Phone Chioma Krishnamurthy MD Primary Care Provider + Reason for Visit * Reason Onset Date Comments New Patient 08/17/2024 Encounter Details Date Type Department Care Team ([facility] st Contact Info) Description 08/17/2024 Telephone [facility] [address] [place], [place] [phone] Jacob Boyd MD [address] [place], [place] [phone] New Patient Social History Tobacco Use Types [...] was advised to have insurance switched to [employer] and she is requesting to reschedule new pt appt. Please contact pt at [phone]. documented in this encounter Plan of Treatment Upcoming Encounters Date Type Department Care Team (Late st Contact Info) Description 03/07/2025 10:15 AM EDT Office Visit [facility] [address] [place] [address] Chioma Krishnamurthy MD [address] [place] [phone] documented as of this encounter Visit Diagnoses Not on filedocumented in this encounter Care Teams Slitter Scorer Cut Off Operator Relationship Specialty Start Date End Date Chioma Krishnamurthy MD [address] [place] [phone] PCP - General Internal Medicine 11/14/24 documented as of this encounter
== END 2025-01-21 10:48 | disposition home or self-care (01) ==
PROVIDERS: Visit Provider Orthopaedic Surgery
DX: M25.462 Effusion, left knee (principal); M70.42 Prepatellar bursitis, left knee
CPT/HCPCS: 20610; 99203

== ENCOUNTER → 2025-01-21 09:49 | Outpatient (BNV) | payer BC, SELFPAY | PROVIDERS: Visit Provider Radiology Diagnostic Radiology | DX: M25.562 Pain in left knee (principal) | CPT/HCPCS: 73560 ==

== ENCOUNTER 2025-01-21 12:55 | Outpatient (REF) | payer BC, SELFPAY ==
--- NOTE | ~2025-01-21 | XR_ITS ---
EXAMINATION: XR KNEE, LEFT CLINICAL INFORMATION: M25.569 - Pain in unspecified knee COMPARISON: December 18, 2024. TECHNIQUE: Two views of the left knee. FINDINGS: Joint space narrowing involving mostly the medial compartment both knees. No acute cortical disruption. No lytic or blastic lesions. No lateral projection. XR/XR knee LT 2V IMPRESSION: Limited exam demonstrates mild medial compartment osteoarthrosis, both knees. Electronically signed by: Javi Gonzalez MD 01/22/2025 11:16 AM [facility]
--- OUTSIDE RECORDS SUMMARY | 2025-01-22 15:45 | XMS_ITS | Clinical Summary ---
Author Organization [employer] Address [address] [facility] [address] [place] [address] Care Team Providers Care Firearms Specialist Name Role Phone Chioma Krishnamurthy MD Primary [...] 11:05 AM EST): She has been on prison morphine for pain management, currently cutting down. [...] Description 12/18/2024 9:20 AM EST Office Visit [facility] [address] [place] [phone] Brenda Galo MD Pain and swelling of left knee (Primary Dx) 11/14/2024 9:30 AM EST Office Visit [address] [phone] Chioma Krishnamurthy MD Fibromyalgia (Primary Dx); DDD (degenerative disc disease), cervical; Reflex sympathetic dystrophy of right upper extremity; Chronic, continuous use of opioids; Primary hypertension; Encounter for immunization 11/14/2024 Travel 11/12/[address] [address] Liz Johnston MA Chart prep 11/07/2024 Patient Outreach [facility] [address] [place], [place] [phone] Chioma Krishnamurthy MD Pre-visit Planning (SDOH negative, Tobacco screening negative.) 11/02/2024 2:20 PM EST Office Visit [facility] [address] [place] [address] [phone] Carey Sharma ANP Spasm of thoracic back muscle (Primary Dx); Reflex sympathetic dystrophy of right upper extremity; manager terminal (current) use of opiate analgesic 10/31/2024 Telephone [facility] [address] [place] [phone] Chioma Krishnamurthy MD ER Follow-up (10/29 [...] Description 03/07/2025 10:15 AM EDT Office Visit [facility] [address] [place], [place] [phone] Chioma Krishnamurthy MD [address] [place] [address] Health Maintenance Due Date Last Done Comments [...] AM EST Narrative 12/18/2024 11:22 AM EST ?[facility] ?[address] ?[place] [address] ?XRay Report ? Signed ? Patient: SaulJo Geiger ?MR#: [id number] ? : 1965 ?Acct:[id number] ? Age/Sex: 59 / F ?ADM Date: 12/18/24 ? Loc: HO.HHCX ? Attending Dr: Brenda Galo MD ? Ordering Physician: Brenda Galo MD ?? Date of Service: 12/18/24 ?? Procedure(s): XR knee LT 3V ?? Accession Number(s): [id number] ? cc: Brenda Galo MD ? EXAMINATION: [...] DD/ 0949 ? TD/TT: 12/18/24 1000 ? Specification Consultant: ? Procedure Note Donaimeter, Image - 12/18/[address] [address] XRay Report Signed Patient: Jo Hughes MMR#: [id number] : 1965Acct:[id number] Age/Sex: 59 / FADM Date: 12/18/24 Loc: HO.HHCX Attending Dr: Brenda Galo MD Ordering Physician: Brenda Galo MD Date of Service: 12/18/24 Procedure(s): XR knee LT 3V Accession Number(s): [id number] cc: Brenda Galo MD EXAMINATION: XR KNEE, [...] Wallace MD Signed By: <Electronically signed by Luis Wallace MD in OV> 12/18/24 1119 DD/ 0949 TD/TT: 12/18/24 1000 Specification Consultant: Brenda Galo MD IMG XR PROCEDURES Edited R esult - Final * Syphilis Screen (11/16/2024 8:33 AM EST) Syphilis Screen Nonreactive Nonreactive [facility] Blood 11/16/2024 8:33 AM EST 11/16/2024 11:32 AM EST Chioma Krishnamurthy MD LAB BLOOD ORDERABLES Fin al Result Performing Organization Address City/[facility] Co de Phone Number [facility] [address] [place] [phone] * Vitamin D, 25-Hydroxy, Total, Immunoassay (11/16/2024 8:33 AM EST) Vitamin D 25-OH Total 46.2 >30 ng/mL [facility] Comment:Health Based Referen ce Values*< 20 ng/mL Uarfwmbef85-16 ng/mL Insufficient> 30 ng/mL Sufficient*Chelsea MONTERO. N [...] ORDERABLES Fin al Result Performing Organization Address City/[facility]/ZIP Co de Phone Number [facility] [address] [place] [phone] * T-SPOT??.TB (11/16/2024 8:33 AM EST) T Spot TB Negative Negative [facility] Comment:A negative test resu lt [...] as aquantitative test. TS PANEL A 2 [facility] TS PANEL B 0 [facility] Negative Control Passed [facility] Positive Control Passed [facility] Comment:For additional infor matanais, please refer tohttp://education.2359 Media/faq/PLZ562(This link is being provided for informational/educational purposes only.)THIS TEST WAS PERFORMED AT:[employer]/[id number] [place] [address]RSWSPIPDANIEL GORDON MD,PHD 11/16/2024 8:33 AM EST 11/16/2024 11:32 AM EST us Chioma Krishnamurthy MD LAB BLOOD ORDERABLES Fin al Result [facility] [address] [place] [address] [phone] * TSH with Reflex to Free T4 (11/16/2024 8:33 AM EST) TSH reflex Free T4 3.22 0.32 - 4.0 uIU/mL [facility] Blood 11/16/2024 8:33 AM EST 11/16/2024 11:32 AM EST us Chioma Krishnamurthy MD LAB BLOOD ORDERABLES Fin al Result Performing Organization Address [facility] Co de Phone Number [facility] [address] [place] [phone] * (ABNORMAL) Lipid Panel with Reflex to Direct LDL (11/16/2024 8:33 AM EST) Triglycerides 118 <150 mg/dL [facility] Comment:Desirable Triglyceri de: less than 150 mg/dLBorderline High Triglyceride 150-199 mg/dLHigh Triglyceride: 200-499 mg/dLVery High Triglyceride: greater than or equal to 5OO mg/dL Cholesterol 205(H) <200 mg/dL [facility] Comment:Desirable Cholestero l: less than 200 mg/dLBorderline High Cholesterol: 200-239 mg/dLHigh Cholesterol: greater than 239 mg/dL LDL Cholesterol Calculated 132(H) <100 mg/dL [facility] Comment:Desirable LDL: less than 100 mg/dLNear Optimal/Above Optimal LDL: 110- 129 mg/dLBorderline High LDL: 130-159 mg/dLHigh LDL: 160-189 mg/dLVery High LDL: greater than or equal to 190 mg/dL HDL Cholesterol 50 >40 mg/dL [facility] Comment:Desirable HDL: great er than 40 mg/dL Note: This HDL assay may give artificially low results in patients with liver disease. Blood 11/16/2024 8:33 AM EST 11/16/2024 11:32 AM EST us Chioma Krishnamurthy MD LAB BLOOD ORDERABLES Fin al Result Performing Organization Address [facility]/ZIP Co de Phone Number [facility] [address] [place] [phone] * Hepatitis Panel, General (11/16/2024 8:33 AM EST) Hepatitis A IgM Nonreactive Nonreactive [facility] Comment:IgM antibodies to QUINTERO V not detected; does not exclude earlyacute or recovered HAV infection. ~Hepatitis B Surface Antibody NONREACTIVE Nonreactive [facility] Comment:Nonreactive: < 8.00 mIU/mL Hepatitis B Core Antibody Nonreactive Nonreactive [facility] Hepatitis C Antibody Nonreactive Nonreactive [facility] Comment:Antibodies to HCV no t detected; does not exclude early acuteHCV infection. Hepatitis B Surface Ag Negative Negative [facility] Blood 11/16/2024 8:33 AM EST 11/16/2024 11:32 AM EST us Chioma Krishnamurthy MD LAB BLOOD ORDERABLES Fin al Result [facility] [address] [place] [phone] * CBC auto differential (11/16/2024 8:33 AM EST) White Blood Count 5.2 4.8 - 10.8 X10*3/uL [facility] Red Blood Count 4.29 4.20 - 5.50 X10*6/uL [facility] Hemoglobin 13.1 12.0 - 16.0 g/dl [facility] Hematocrit 39.8 37.0 - 47.0 % [facility] Mean Corpuscular Volume 92.8 80.0 - 98.0 fL [facility] Mean Corpuscular Hemoglobin 30.5 27.0 - 33.0 pg [facility] Mean Corpuscular HGB Conc 32.9 31.0 - 35.0 g/dl [facility] Red Cell Distribution Width 13.2 11.0 - 16.0 % [facility] Platelet Count 230 160 - 400 X10*3/uL [facility] Mean Platelet Volume 10.6 9.4 - 12.3 fL [facility] Neutrophils Percent Auto 61.4 45 - 73 % [facility] Imm Gran Pct Auto 0.4 0.0 - 0.4 % [facility] Lymphocytes Percent Auto 26.1 20 - 40 % [facility] Monocytes Percent Auto 7.3 2 - 11 % [facility] Eosinophils Percent Auto 4.0 0 - 4 % [facility] Basophils Percent Auto 0.8 0 - 2 % [facility] NRBC Pct Auto 0.0 0.0 - 0.2 /100WBC [facility] Neutrophils Absolute Auto 3.2 2.0 - 8.3 x10*3/uL [facility] Imm Gran Abs Auto 0.02 0.00 - 0.03 X10*3/uL [facility] Lymphocytes Absolute Auto 1.4 1.2 - 4.9 X10*3/uL [facility] Monocytes Absolute Auto 0.4 0.1 - 1.2 X10*3/uL [facility] Eosinophils Absolute Auto 0.2 0.0 - 0.4 X10*3/uL [facility] Basophils Absolute Auto 0.0 0.0 - 0.2 X10*3/uL [facility] NRBC Abs Auto 0.000 0.0 - 0.012 X10*3/uL [facility] Blood Venous blood specimen / Unknown 11/16/2024 8:33 AM EST 11/16/2024 11:32 AM EST us Chioma Krishnamurthy MD LAB BLOOD ORDERABLES Fin al Result [facility] [address] [place] [phone] * HIV-1/2 Antigen and Antibodies, Fourth Generation, with Reflexes (11/16/2024 8:33 AM EST) HIV AB/AG Nonreactive Nonreactive [facility] Comment:HIV-1 p24 Ag and/or HIV-1/HIV-2 Ab not detected.A test result that is nonreactive does not exclude thepossibility of exposure to or infection with HIV-1 and/orHIV-2. Nonreactive results in this assay for individualswith prior exposure to HIV-1 and/or HIV-2 may be due toantigen and antibody levels that are below the limit ofdetection of this assay.The [employer] HIV Ag/Ab Combo assay result andsupplemental assay results should be interpreted inconjunction with the patient's clinical presentation,history and other laboratory results. If the results areinconsistent with clinical evidence, additional testing issuggested to confirm the result. Blood Venous blood specimen / Unknown 11/16/2024 8:33 AM EST 11/16/2024 11:32 AM EST us Chioma Krishnamurthy MD LAB BLOOD ORDERABLES Fin al Result Performing Organization Address [facility] Co de Phone Number [facility] [address] [place] [phone] * Sed Rate by Modified Westergren (11/16/2024 8:33 AM EST) Erythrocyte Sedimentation Rate 14 0 - 20 MM/HR [facility] Comment:Patients with polycy themia and many hemoglobin abnormalitiesmay have depressed sed rates whereas patients with anemiamay have elevated sed rates. Blood Venous blood specimen / Unknown 11/16/2024 8:33 AM EST 11/16/2024 11:32 AM EST us Chioma Krishnamurthy MD LAB BLOOD ORDERABLES Fin al Result Performing Organization Address [facility] Co de Phone Number [facility] [address] [place] [phone] * (ABNORMAL) C-reactive Protein (11/16/2024 8:33 AM EST) C Reactive Protein 0.53(H) < or = 0.50 mg/dL [facility] Blood Venous blood specimen / Unknown 11/16/2024 8:33 AM EST 11/16/2024 11:32 AM EST Chioma Krishnamurthy MD LAB BLOOD ORDERABLES Fin al Result Performing Organization Address City/[facility]/ZIP Co de Phone Number [facility] [address] [place] [phone] * (ABNORMAL) Comprehensive Metabolic Panel (11/16/2024 8:33 AM EST) Sodium 144 135 - 145 mmol/L [facility] Potassium 4.1 3.3 - 5.1 mmol/L [facility] Chloride 105 96 - 108 mmol/L [facility] Carbon Dioxide 32(H) 22 - 29 mmol/L [facility] Anion Gap 11(L) 12 - 20 [facility] Urea Nitrogen (BUN) 14 9 - 16 mg/dL [facility] Creatinine, Serum 0.74 0.5 - 1.4 mg/dL [facility] Estimated Glomerular Filt Rate >60 [facility] Comment:Chronic Kidney Disea se: Estimated GFR < 60 mL/min/1.03i6Bbumlc Kidney Disease: Estimated GFR < 15 mL/min/1.73m2 Glucose 93 60 - 115 mg/dL [facility] Calcium 9.0 8.4 - 10.2 mg/dL [facility] Bilirubin, Total 0.3 0.0 - 1.0 mg/dL [facility] Aspartate Amino Transferase 20 5 - 31 U/L [facility] Alanine Aminotransferase 18 0 - 31 U/L [facility] Total Protein 7.2 6.5 - 8.0 g/dL [facility] Albumin Level 4.1 3.5 - 5.0 g/dL [facility] Alkaline Phosphatase 81 39 - 117 U/L [facility] Blood Venous blood specimen / Unknown 11/16/2024 8:33 AM EST 11/16/2024 11:32 AM EST us Chioma Krishnamurthy MD LAB BLOOD ORDERABLES Fin al Result Performing Organization Address City/[facility]/ZIP Co de Phone Number [facility] [address] [place] [phone] from Last 3 Months Insurance [facility] H[facility] Care Teams Firearms Specialist Relationship Specialty Start Date End Date Chioma Krishnamurthy MD [address] [place] [phone] PCP - General Internal Medicine 11/14/24
--- OUTSIDE RECORDS SUMMARY | 2025-01-22 15:45 | XMS_ITS | Encounter Summary ---
Author Organization [email or web address] Address [address] [facility] 7 [place] [address] Care Team Providers Care Engineering Group Manager Name Role Phone Chioma Krishnamurthy MD Primary Care Provider + Reason for Visit * Reason Onset Date Comments New Patient 08/17/2024 Encounter Details Date Type Department Care Team ([facility] st Contact Info) Description 08/17/2024 Telephone [facility] [address] [place], [place] [phone] Jacob Boyd MD [address] [place], [place] [phone] New Patient Social History Tobacco Use Types [...] was advised to have insurance switched to [employer] and she is requesting to reschedule new pt appt. Please contact pt at [phone]. documented in this encounter Plan of Treatment Upcoming Encounters Date Type Department Care Team (Late st Contact Info) Description 03/07/2025 10:15 AM EDT Office Visit [facility] [address] [place] [address] Chioma Krishnamurthy MD [address] [place] [address] documented as of this encounter Visit Diagnoses Not on filedocumented in this encounter Care Teams Engineering Group Manager Relationship Specialty Start Date End Date Chioma Krishnamurthy MD [address] [place] [phone] PCP - General Internal Medicine 11/14/24 documented as of this encounter
== END 2025-01-21 12:56 | disposition home or self-care (01) ==
LOC: HO.HOSX 12:55
PROVIDERS: Visit Provider Physician Assistant
DX: M25.462 Effusion, left knee (principal); M70.42 Prepatellar bursitis, left knee; M79.7 Fibromyalgia; Z79.891 Long term (current) use of opiate analgesic
CPT/HCPCS: 20610; 73560; J0665; J1100; J2003

== ENCOUNTER 2025-02-21 07:19 | Emergency (ER) | payer BC, SELFPAY ==
--- NOTE | ~2025-02-21 | XR_ITS ---
EXAMINATION: XR KNEE 3 VIEWS LEFT HISTORY: knee pain COMPARISON: Comparison is made with the prior examination dated 01/21/2025. FINDINGS: Five views of the left knee are submitted. Osseous mineralization is normal. There is no fracture or dislocation. The joint spaces are preserved. The soft tissues are unremarkable. There is no joint effusion. XR/XR knee LT 3V IMPRESSION: Unremarkable examination of the left knee. Electronically signed by: Hector Lizama MD 02/21/2025 07:57 AM EDT
--- NOTE | ~2025-02-21 | US_ITS ---
EXAMINATION: US LOWER EXTREMITY VEINS LIMITED FOLLOW UP LEFT HISTORY: Left thigh pain and posterior knee pain COMPARISON: There are no prior studies for comparison. TECHNIQUE: Duplex and color Doppler sonographic examination of the deep venous system of the left lower extremity was performed. FINDINGS: The common femoral, superficial femoral, and popliteal veins are patent demonstrating normal compressibility, spontaneous flow, and augmentation. There is a normal color and spectral Doppler waveform appearance of the visualized deep venous system above the knee. The posterior tibial and peroneal veins are patent. Incidental note is made of a small suprapatellar joint effusion. US/US venous duplex LE LT IMPRESSION: No evidence of acute DVT in the left lower extremity. Electronically signed by: Hector Lizama MD 02/21/2025 08:59 AM EDT
[2025-02-21 07:22] VITALS: BP 128/89; PULSE 89; RESP 16; TEMP 36.4; O2SAT 100; BMI 24.9
--- NOTE | 2025-02-21 08:38 | ED.GENADULT ---
HPI - General Adult General Chief complaint: Extremity Injury, Lower Stated complaint: knee pain Time Seen by Provider: 02/21/25 07:52 Source: patient Mode of arrival: ambulatory Limitations: no limitations History of Present Illness ED Provider: Jose M Diaz HPI narrative: 59 yold female with pmh Chronic pain syndrome, Vertigo, HTN, left knee burisitit presents to the ED for chronic left knee pain since November that is being evaluated by Orhopedics. Patient states she has had normal x-rays in the past. As per orthopedics they recommend ultrasound of left lower extremity pain not improving and MRI. Patient has had steroid injection in the knee in the past. Patient denies any new trauma. Patient states pain now is in left lower thigh left anterior knee and left posterior knee. Patient denies any recent long travel recent surgery Related Data Home Medications ?Medication ?Instructions ?Recorded ?Confirmed gabapentin 600 mg tablet mg PO .4 times a day 09/24/22 05/02/23 tramadol 50 mg tablet 50 mg PO QID PRN 10/04/24 Previous Rx's ?Medication ?Instructions ?Recorded meclizine 25 mg tablet See Rx Instructions .Route 05/22/24 .COMPLEX #30 tabs metoprolol succinate 50 mg 50 mg PO DAILY #90 tabs 06/04/24 tablet,extended release 24 hr prednisone 20 mg tablet 40 mg (2 x 20 mg) PO DAILY 5 days 02/21/25 #10 tabs Allergies Allergy/AdvReac Type Severity Reaction Status Date / Time No Known Allergies Allergy Verified 02/21/25 07:23 [No Known Allergies*] Review of Systems Review of Systems: Left knee posterior knee pain and left lower thigh pain Yes all other systems are reviewed and are negative [facility] Past Medical History Medical History Annual physical exam RSD (reflex sympathetic dystrophy) Hypertension Carpal tunnel syndrome on right Herniated cervical disc Fibromyalgia Surgical History H/O colonoscopy Family History Family History Father Hypertension Mother Hypertension Social History Social History Household Members: Spouse and Children Housing: House Alcohol intake: never Patient Tobacco Use Status: Never used Tobacco e-Cigarette/Vaping Use: Never Used Current occupational status: disabled Sexual orientation: Straight/Heterosexual Gender identity: Female Cognitive needs: No Hearing needs: No Vision needs: Yes Physical Exam ED Vital Signs: Vital Signs - 24 hr 02/21/25 07:22 02/21/25 11:08 Temperature 97.6 F 97.6 F Pulse Rate 89 89 Respiratory Rate 16 16 Blood Pressure 128/89 128/89 Pulse Oximetry 100 100 Oxygen Delivery Method Room Air Room Air BMI result Body Mass Index 24.9 Const General: cooperative, healthy appearing, comfortable, no acute distress, well developed, alert, awake and Physically active Orientation/consciousness: patient oriented x3 HENMT Head: Yes normal to inspection, Yes No palpable skull fracture present, Yes normocephalic and Yes atraumatic Eyes General: appearance normal, both eyes and all related structures Neck Neck: Yes normal visual inspection, Yes full ROM, Yes no lymphadenopathy, Yes no meningeal signs, Yes trachea midline, Yes supple, No anterior neck swelling and No tender Chest Chest palpation & inspection: normal inspection of the chest and normal palpation of entire chest wall Resp Effort & Inspection: normal respiratory effort and able to speak in complete sentences Auscultation: clear to auscultation bilaterally Cardio Jugular venous distension: no JVD Heart sounds: S1 normal heart sound present and S2 normal heart sound present GI Inspection: Yes normal to inspection Palpation (GI): Soft to palpation, not firm, nontender and no guarding General: Yes no CVA tenderness Back/Spine/Pelvis Back: no CVA tenderness and No back tenderness Skin General skin exam: no rashes or lesions noted, elasticity normal and turgor normal Neuro General: patient oriented x3, gait normal, tone normal, moves all extremities, Normal light touch and pain sensation, no meningeal signs, no focal motor deficits, CN's II-XI intact bilaterally and normal sensation to monofilament Extrem General: Yes normal to inspection, Yes full ROM and Yes capillary refill normal Knee images: 1. Positive for tenderness on palpation. Negative for crepitus, ecchymosis or deformity. Negative for swelling. Rest of extremity normal. Motor/neuro/vascular exam intact. 2. Positive for tenderness on palpation. Negative for crepitus, ecchymosis or deformity. Negative for swelling. Rest of extremity normal. Motor/neuro/vascular exam intact. Psych Appearance: grossly normal, well kempt and not disheveled Medical Decision Making Medical Decision Making MDM Narrative: 59-year-old female presents to ED for chronic left knee pain. Patient is already on Motrin and tramadol at home. Patient states not able to take morphine. Left knee x-ray negative for any arthritis or fluid on x-ray. Patient will be sent for ultrasound to rule out any DVT. 10:45am: Ultrasound came back negative for DVT but does show small suprapatellar superior effusion. Presently not suspecting sepsis patient has good mobilization. Presently no indication for arthrocentesis. Patient already has Motrin and tramadol at home. Patient will be discharged with steroids and informed to follow-up with orthopedic surgeon. Patient explained worrisome signs and informed to return to the ED immediately. Not suspecting sepsis joint, gout, osteomyelitis, compartment syndrome, arterial occlusion, any other life-threatening etiology. Differential Diagnosis Differential Diagnoses: The differential diagnosis associated with the presentation includes (Arthritis, bursitis, DVT) Admission/Observation Consideration of admission/observation: Escalation of care including admission/observation considered Independent Interpretation I performed an independent interpretation of an: Plain X-Ray and Ultrasound Radiology Impression Discussion of test interpretation with radiology: I have reviewed the radiologist's reading. Independent Historian Clinical information obtained from an independent historian. History obtained from or confirmed by: Other (Patient) Prescription Management I considered prescription management with: Other (Steroid) Discharge Plan Discharge Clinical Impression: Knee pain, Joint effusion of knee Patient Disposition: Home, Self-Care Instructions: Swollen Knee Joint (ED), Knee Pain (ED) Additional Instructions: X-ray came back negative for arthritis or fracture. Ultrasound negative for DVT but does show small suprapatellar joint effusion. Recommend follow-up with orthopedic surgeon Dr. Mayen. You may need an outpatient MRI. Continue taking tramadol and Motrin prescriptions you have at home. You will be discharged with prednisone. Return to the ED immediately for any severe knee swelling, redness, inability to walk, fever, chills, calf pain, chest pain, shortness of breath, or any other concerning symptoms. EXAMINATION: US LOWER EXTREMITY VEINS LIMITED FOLLOW UP LEFT HISTORY: Left thigh pain and posterior knee pain COMPARISON: There are no prior studies for comparison. TECHNIQUE: Duplex and color Doppler sonographic examination of the deep venous system of the left lower extremity was performed. FINDINGS: The common femoral, superficial femoral, and popliteal veins are patent demonstrating normal compressibility, spontaneous flow, and augmentation. There is a normal color and spectral Doppler waveform appearance of the visualized deep venous system above the knee. The posterior tibial and peroneal veins are patent. Incidental note is made of a small suprapatellar joint effusion. US/US venous duplex LE LT IMPRESSION: No evidence of acute DVT in the left lower extremity. Electronically signed by: Hector Lizama MD 02/21/2025 08:59 AM EDT RP Dictated By: Hector Lizama MD Signed By: <Electronically signed by Hector Lizama MD in OV> 02/21/25 0859 EXAMINATION: XR KNEE 3 VIEWS LEFT HISTORY: knee pain COMPARISON: Comparison is made with the prior examination dated 01/21/2025. FINDINGS: Five views of the left knee are submitted. Osseous mineralization is normal. There is no fracture or dislocation. The joint spaces are preserved. The soft tissues are unremarkable. There is no joint effusion. XR/XR knee LT 3V IMPRESSION: Unremarkable examination of the left knee. Electronically signed by: Hector Lizama MD 02/21/2025 07:57 AM EDT RP Dictated By: Hector Lizama MD Signed By: <Electronically signed by Hector Lizama MD in OV> 02/21/25 0757 Prescriptions: New prednisone 20 mg tablet 40 mg PO DAILY 5 Days Qty: 10 0RF No Action meclizine 25 mg tablet See Rx Instructions .ROUTE .COMPLEX Qty: 30 0RF Dose Instruction: TAKE 1 TAB ORALLY DAILY NEEDED FOR MOTION SICKNESS Rx Instructions: TAKE 1 TAB ORALLY DAILY NEEDED FOR MOTION SICKNESS metoprolol succinate 50 mg tablet extended release 24 hr 50 mg PO DAILY Qty: 90 3RF gabapentin 600 mg tablet PO .4 times a day tramadol 50 mg tablet 50 mg PO QID PRN Referrals: [facility] [Provider Group] (Chronic left knee pain. Small suprapatellar joint effusion) Interventions: ED Discharge Assessment Last Done: 02/21/25 11:08 Discharge Date/Time: 02/21/25 11:09 Print Language: [place]
[2025-02-21 11:08] VITALS: BP 128/89; PULSE 89; RESP 16; TEMP 36.4; O2SAT 100
== END 2025-02-21 11:09 | disposition home or self-care (01) ==
PROVIDERS: Emergency Provider Emergency Medicine; PCP Internal Medicine
DX: M25.562 Pain in left knee (principal); M25.462 Effusion, left knee; M79.605 Pain in left leg
CPT/HCPCS: 73562; 93971; 99282; 99284

== ENCOUNTER → 2025-02-21 07:45 | Outpatient (BNV) | payer BC, SELFPAY | PROVIDERS: PCP Internal Medicine; Visit Provider Radiology Diagnostic Radiology | DX: M79.652 Pain in left thigh (principal); M25.562 Pain in left knee | CPT/HCPCS: 73562; 93971 ==

== ENCOUNTER 2025-03-07 11:01 | Outpatient (REF) | payer BC, SELFPAY ==
[2025-03-07 11:45] LABS: MANUAL DIFF FLAG NO
[2025-03-07 12:03] LABS: Basophils Absolute Auto 0.1 X10*3/uL (0.0-0.2); Eosinophils Absolute Auto 0.2 X10*3/uL (0.0-0.4); Hematocrit 39.9 % (37.0-47.0); Imm Gran Abs Auto 0.02 X10*3/uL (0.00-0.03); Imm Gran Pct Auto 0.4 % (0.0-0.4); Lymphocytes Absolute Auto 1.6 X10*3/uL (1.2-4.9); Lymphocytes Percent Auto 29.8 % (20-40); Mean Corpuscular HGB Conc 32.6 g/dl (31.0-35.0); Mean Corpuscular Hemoglobin 30.2 pg (27.0-33.0); Mean Corpuscular Volume 92.6 fL (80.0-98.0); Mean Platelet Volume 10.5 fL (9.4-12.3); Monocytes Absolute Auto 0.4 X10*3/uL (0.1-1.2); Monocytes Percent Auto 7.5 % (2-11); Neutrophils Percent Auto 57.3 % (45-73); Platelet Count 215 X10*3/uL (160-400); Red Blood Count 4.31 X10*6/uL (4.20-5.50); Red Cell Distribution Width 13.2 % (11.0-16.0); White Blood Count 5.2 X10*3/uL (4.8-10.8)
[2025-03-07 12:25] LABS: Uric Acid 4.1 mg/dL (2.4-5.7)
--- OUTSIDE RECORDS SUMMARY | 2025-03-07 13:17 | XMS_ITS | Encounter Summary ---
Author Organization [employer] Address [address] [facility] 7 [place] [address] Care Team Providers Care Tar Leveler Name Role Phone Chioma Krishnamurthy MD Primary Care Provider + Reason for Visit * Reason Onset Date Comments New Patient 08/17/2024 Encounter Details Date Type Department Care Team ([facility] st Contact Info) Description 08/17/2024 Telephone [facility] MEDICINE [address] [place], [place] [phone] Jacob Boyd MD [address] [place], [place] [phone] New Patient Social History Tobacco Use Types [...] was advised to have insurance switched to [employer] and she is requesting to reschedule new pt appt. Please contact pt at [phone]. documented in this encounter Plan of Treatment Not on file documented as of this encounter Visit Diagnoses Not on filedocumented in this encounter Care Teams Tar Leveler Relationship Specialty Start Date End Date Chioma Krishnamurthy MD [address] [place] [phone] PCP - General Internal Medicine 11/14/24 documented as of this encounter
--- OUTSIDE RECORDS SUMMARY | 2025-03-07 13:17 | XMS_ITS | Encounter Summary ---
Author Organization [employer] Address [address] [facility] 7t [place] [address] Care Team Providers Care Embosser Apprentice Name Role Phone Chioma Krishnamurthy MD Primary Care Provider + Reason for Visit * Reason Comments Follow-up Encounter Details Date Type Department Care Team (Latest Contact Info) Description 03/07/2025 10:15 AM EDT Office Visit [facility] MEDICINE [address] [place], [place] [phone] Chioma Krishnamurthy MD [address] [place], [place] [phone] Pain and swelling of left knee (Primary Dx); Chronic, continuous use of opioids; Fibromyalgia; Mixed hyperlipidemia Social History Tobacco Use Types Packs/Day Years [...] Sign Reading Time Taken Comments Blood Pressure 132/85 03/07/2025 10:23 AM EDT Pulse 87 03/07/2025 10:23 AM EDT Temperature 36.5 ??C (97.7 ??F) 03/07/2025 10:23 AM E DT Respiratory Rate - - Oxygen Saturation 97% 03/07/2025 10:23 AM EDT Inhaled Oxygen Concentration - - Weight 65.9 kg (145 lb 4 oz) 03/07/2025 10:23 AM EDT Height 162.6 cm (5' 4 ) 03/07/2025 10:23 AM EDT Body Mass Index 24.93 03/07/2025 10:23 AM EDT documented in this encounter Plan of Treatment Not on file documented as of this encounter Visit Diagnoses Diagnosis Pain and swelling of left knee- Primary Chronic, continuous use of opioids Fibromyalgia Unspecified myalgia and myositis Mixed hyperlipidemia documented in this encounter Care Teams Embosser Apprentice Relationship Specialty Start Date End Date Chioma Krishnamurthy MD [address] [place] [phone] PCP - General Internal Medicine 11/14/24 documented as of this encounter
--- OUTSIDE RECORDS SUMMARY | 2025-03-07 13:17 | XMS_ITS | Encounter Summary ---
Author Organization [employer] Address [address] [facility] 7t [place] [address] Care Team Providers Care Operational Review Sergeant Name Role Phone Chioma Krishnamurthy MD Primary Care Provider + Reason for Visit * Reason Onset Date Comments Chart prep 03/05/2025 Encounter Details Date Type Department Care Team ([facility] Contact Info) Description 03/05/2025 Telephone [facility] MEDICINE [address] [place], [place] [phone] Chioma Krishnamurthy MD [address] [place], [place] [phone] Chart prep Social History Tobacco Use Types Packs/Day Years [...] encounter Miscellaneous Notes * Telephone Encounter - Liz Johnston MA - 03/05/2025 3:26 PM EDT Chart Prep Labs: not done Images: done Vaccines due: yes Referrals: complete Screenings: colonoscopy, mammogram, and pap smear Overdue care gaps: Disability screen documented in this encounter Plan of Treatment Not on file documented as of this encounter Visit Diagnoses Not on filedocumented in this encounter Care Teams Operational Review Sergeant Relationship Specialty Start Date End Date Chioma Krishnamurthy MD [address] [place] [phone] PCP - General Internal Medicine 11/14/24 documented as of this encounter
--- OUTSIDE RECORDS SUMMARY | 2025-03-07 13:17 | XMS_ITS | Encounter Summary ---
Author Organization [employer] Address [address] [facility] [address] 7[address] [place] [address] Care Team Providers Care Advanced Clinical Specialist Name Role Phone Chioma Krishnamurthy MD Primary Care Provider + Encounter Details Date Type Department Care Team (Latest Contact Info) Description 03/07/2025 Travel Social History Tobacco Use Types Packs/Day Years [...] PM EST documented as of this encounter Plan of Treatment Not on file documented as of this encounter Visit Diagnoses Not on filedocumented in this encounter Care Teams Advanced Clinical Specialist Relationship Specialty Start Date End Date Chioma Krishnamurthy MD [address] [place] [phone] PCP - General Internal Medicine 11/14/24 documented as of this encounter
--- OUTSIDE RECORDS SUMMARY | 2025-03-07 13:17 | XMS_ITS | Clinical Summary ---
Author Organization [employer] Address [address] [facility] 7t [place] [address] Care Team Providers Care Rotary Soil Stabilizer Operator Name Role Phone Chioma Krishnamurthy MD [...] 6 (six) hours if needed. 4 Active Active Problems Problem Noted Date Diagnosed Date Mixed hyperlipidemia 03/07/2025 Pain and swelling of left knee 12/18/2024 [...] 11:05 AM EST): She has been on extermination supervisor morphine for pain management, currently cutting down. [...] Encounters Date Type Department Care Team Description 03/07/2025 10:15 AM EDT Office Visit [facility] MEDICINE [address] [place] [phone] Chioma Krishnamurthy MD Pain and swelling of left knee (Primary Dx); Chronic, continuous use of opioids; Fibromyalgia; Mixed hyperlipidemia 03/07/2025 Travel 03/05/2025 Telephone [facility] MEDICINE [address] [place] [phone] Chioma Krishnamurthy MD Chart prep 02/21/2025 Orders Only [facility] External Provider, [facility] 12/18/2024 9:20 AM EST Office Visit [facility] [address] [place] [phone] Brenda Galo MD Pain and swelling of left knee (Primary Dx) from Last 3 Months Immunizations Name Administration [...] 03/07/2025 10:23 AM E DT Respiratory Rate 16 12/18/2024 9:15 AM EST Oxygen Saturation 97% 03/07/2025 10:23 AM EDT Inhaled Oxygen Concentration - - Weight 65.9 kg (145 lb 4 oz) 03/07/2025 10:23 AM EDT Height 162.6 cm (5' 4 ) 03/07/2025 10:23 AM EDT Body Mass Index 24.93 03/07/2025 10:23 AM EDT Plan of Treatment Health Maintenance Due Date Last Done Comments [...] (1 of 2) 2015 COVID-19 Vaccine ( - 2023- season) 2024 SDOH Screening 11/07/2025 11/07/2024 Depression Screening 11/14/2025 11/14/2024, 11/14/20 24 Tobacco Screening 03/07/2026 03/07/2025 Lipid Panel 11/16/2029 11/16/2024 RSV Patients and [...] Procedure Name Priority Date/Time Associated Diagnosis Comments URIC ACID Routine 03/07/2025 11:05 AM EDT Pain and swelling of left knee CBC WITH AUTO DIFFERENTIAL Routine 03/07/2025 11:05 AM EDT Pain and swelling of left knee US VENOUS DUPLEX LE LT Routine 02/21/2025 8:35 AM EDT XR KNEE 3 VIEWS LEFT Routine 02/21/2025 7:45 AM EDT XR KNEE 3 VIEWS LEFT Routine 12/18/2024 9:49 AM EST Pain and swelling of left knee HEPATITIS PANEL, GENERAL Routine 11/16/2024 8:33 AM EST Reflex sympathetic dystrophy of right upper extremity HIV 1/2 ANTIGEN/ANTIBODY, FOURTH GENERATION W/RFL Routine 11/16/2024 8:33 AM EST Reflex sympathetic dystrophy of right upper extremity LIPID PANEL WITH REFLEX TO DIRECT LDL Routine 11/16/2024 8:33 AM EST Primary hypertension from Last 3 Months or Most Recently Relevant to Health Maintenance Results * CBC auto differential (03/07/2025 11:05 AM EDT) White Blood Count 5.2 4.8 - 10.8 X10*3/uL [facility] Red Blood Count 4.31 4.20 - 5.50 X10*6/uL [facility] Hemoglobin 13.0 12.0 - 16.0 g/dl [facility] Hematocrit 39.9 37.0 - 47.0 % [facility] Mean Corpuscular Volume 92.6 80.0 - 98.0 fL [facility] Mean Corpuscular Hemoglobin 30.2 27.0 - 33.0 pg [facility] Mean Corpuscular HGB Conc 32.6 31.0 - 35.0 g/dl [facility] Red Cell Distribution Width 13.2 11.0 - 16.0 % [facility] Platelet Count 215 160 - 400 X10*3/uL [facility] Mean Platelet Volume 10.5 9.4 - 12.3 fL [facility] Neutrophils Percent Auto 57.3 45 - 73 % [facility] Imm Gran Pct Auto 0.4 0.0 - 0.4 % [facility] Lymphocytes Percent Auto 29.8 20 - 40 % [facility] Monocytes Percent Auto 7.5 2 - 11 % [facility] Eosinophils Percent Auto 4.0 0 - 4 % [facility] Basophils Percent Auto 1.0 0 - 2 % [facility] NRBC Pct Auto 0.0 0.0 - 0.2 /100WBC [facility] Neutrophils Absolute Auto 3.0 2.0 - 8.3 x10*3/uL [facility] Imm Gran Abs Auto 0.02 0.00 - 0.03 X10*3/uL [facility] Lymphocytes Absolute Auto 1.6 1.2 - 4.9 X10*3/uL [facility] Monocytes Absolute Auto 0.4 0.1 - 1.2 X10*3/uL [facility] Eosinophils Absolute Auto 0.2 0.0 - 0.4 X10*3/uL [facility] Basophils Absolute Auto 0.1 0.0 - 0.2 X10*3/uL [facility] NRBC Abs Auto 0.000 0.0 - 0.012 X10*3/uL [facility] Blood Venous blood specimen / Unknown 03/07/2025 11:05 AM EDT 03/07/2025 11:42 AM EDT Brenda Galo MD LAB BLOOD ORDERABLES Final Result [facility] [address] [place] [phone] * Uric acid (03/07/2025 11:05 AM EDT) Uric Acid 4.1 2.4 - 5.7 mg/dL [facility] Blood Venous blood specimen / Unknown 03/07/2025 11:05 AM EDT 03/07/2025 11:42 AM EDT Brenda Galo MD LAB BLOOD ORDERABLES Final Result [facility] [address] [place] [phone] [phone] * VENOUS DUPLEX LE LT (02/21/2025 8:35 AM EDT) Anatomical Region Laterality Modality Abdomen Ultrasound 02/21/2025 8:35 AM EDT Narrative 02/21/2025 9:02 AM EDT ? [facility] ?[address] ?[place] [address] ? Ultrasound Report ? Signed ? Patient: Saul,Mireya Allen M ?MR#: [id number] ?? 1 ? : 1965 ?Acct:[id number] ? Age/Sex: 59 / F ?ADM Date: 02/21/25 ? Loc: HO.ED ? Attending Dr: ? Ordering Physician: Jose M Diaz ?? Date of Service: 02/21/25 ?? Procedure(s): US venous duplex LE LT ?? Accession Number(s): [id number] ? cc: Jose M Diaz; Chioma Krishnamurthy MD ? EXAMINATION: ??US LOWER EXTREMITY VEINS LIMITED FOLLOW UP LEFT ? HISTORY: Left thigh pain and posterior knee pain ? COMPARISON: There are no prior studies for comparison. ? TECHNIQUE: ??Duplex and color Doppler sonographic examination of the ?? deep venous system of the left lower extremity was performed. ? FINDINGS: ? The common femoral, superficial femoral, and popliteal veins are patent ?? demonstrating normal compressibility, spontaneous flow, and ?? augmentation. ??There is a normal color and spectral Doppler waveform ?? appearance of the visualized deep venous system above the knee. ??The ?? posterior tibial and peroneal veins are patent. Incidental note is made ?? of a small suprapatellar joint effusion. ? US/US venous duplex LE LT ?? IMPRESSION: ?? No evidence of acute DVT in the left lower extremity. ? Electronically signed by: ??Hector Lizama MD ??02/21/2025 08:59 AM EDT ?? RP ? Dictated By: ?Hector Lizama MD ? Signed By: ?<Electronically signed by Hector Lizama MD in OV> ?02/21/25 0859 ? DD/ 0835 ? TD/TT: 02/21/25 0848 ? Personnel Arbitrator: ? Procedure Note Donotuseinterpreter, Image - 02/21/2025 [place] [address] Ultrasound Report Signed Patient: Mireya Hughes MMR#: [id number] 1 : 1965Acct:[id number] Age/Sex: 59 / FADM Date: 02/21/25 Loc: .ED Attending Dr: Ordering Physician: Jose M Diaz Date of Service: 02/21/25 Procedure(s): US venous duplex LE LT Accession Number(s): [id number] cc: Jose M Diaz; Chioma Krishnamurthy MD EXAMINATION: US LOWER EXTREMITY VEINS LIMITED FOLLOW UP LEFT HISTORY: Left thigh pain and posterior knee pain COMPARISON: There are no prior studies for comparison. TECHNIQUE: Duplex and color Doppler sonographic examination of the deep venous system of the left lower extremity was performed. FINDINGS: The common femoral, superficial femoral, and popliteal veins are patent demonstrating normal compressibility, spontaneous flow, and augmentation. There is a normal color and spectral Doppler waveform appearance of the visualized deep venous system above the knee. The posterior tibial and peroneal veins are patent. Incidental note is made of a small suprapatellar joint effusion. US/US venous duplex LE LT IMPRESSION: No evidence of acute DVT in the left lower extremity. Electronically signed by: Hector Lizama MD 02/21/2025 08:59 AM EDT Dictated By: Hector Lizama MD Signed By: <Electronically signed by Hector Lizama MD in OV> 02/21/25 0859 DD/ 4 TD/TT: 02/21/258[address] Personnel Arbitrator: us [facility] External Provider IMG US PROCEDURES Final Result * XR Knee 3 Views Left (02/21/2025 7:45 AM EDT) Only the most recent of2 resultswithin the time period is included. Anatomical Region Laterality Modality Lower Extremities, Knee Left Radiogra phic Imaging 02/21/2025 7:45 AM EDT Narrative 02/21/2025 8:00 AM EDT ? [facility] ?[address] ?[place] [address] ?XRay Report ? Signed ? Patient: Mireya Hughes M ?MR#: [id number] ?? 1 ? : 1965 ?Acct:[id number] ? Age/Sex: 59 / F ?ADM Date: 02/21/25 ? Loc: HO.ED ? Attending Dr: ? Ordering Physician: Generic ED Physician ?? Date of Service: 02/21/25 ?? Procedure(s): XR knee LT 3V ?? Accession Number(s): [id number] ? cc: Chioma Krishnamurthy MD; Generic ED Physician ? EXAMINATION: ??XR KNEE 3 VIEWS LEFT ? HISTORY: knee pain ? COMPARISON: Comparison is made with the prior examination dated ?? 01/21/2025. ? FINDINGS: ? Five views of the left knee are submitted. ??Osseous mineralization is ?? normal. ??There is no fracture or dislocation. ??The joint spaces are ?? preserved. ??The soft tissues are unremarkable. There is no joint ?? effusion. ? XR/XR knee LT 3V ?? IMPRESSION: ? Unremarkable examination of the left knee. ? Electronically signed by: ??Hector Lizama MD ??02/21/2025 07:57 AM EDT ?? RP ? Dictated By: ?Hector Lizama MD ? Signed By: ?<Electronically signed by Hector Lizama MD in OV> ?02/21/25 0757 ? DD/ 0745 ? TD/TT: 02/21/25 0753 ? Personnel Arbitrator: ? Procedure Note Elvis, Meenu - 02/21/2025 [facility] [address] [address] XRay Report Signed Patient: Mireya Hughes MMR#: [id number] 1 : 1965Acct:[id number] Age/Sex: 59 / FADM Date: 02/21/25 Loc: HO.ED Attending Dr: Ordering Physician: Generic ED Physician Date of Service: 02/21/25 Procedure(s): XR knee LT 3V Accession Number(s): [id number] cc: Chioma Krishnamurthy MD; Generic ED Physician EXAMINATION: XR KNEE 3 VIEWS LEFT HISTORY: knee pain COMPARISON: Comparison is made with the prior examination dated 01/21/2025. FINDINGS: Five views of the left knee are submitted. Osseous mineralization is normal. There is no fracture or dislocation. The joint spaces are preserved. The soft tissues are unremarkable. There is no joint effusion. XR/XR knee LT 3V IMPRESSION: Unremarkable examination of the left knee. Electronically signed by: Hector Lizama MD 02/21/2025 07:57 AM EDT Dictated By: Hector Lizama MD Signed By: <Electronically signed by Hector Lizama MD in OV> 02/21/25 0757 DD/ 0745 TD/TT: 02/21/25 0753 Personnel Arbitrator: [facility] External Provider IMG XR PROCEDURES Final Result * (ABNORMAL) Lipid Panel with Reflex to Direct LDL (11/16/2024 8:33 AM EST) Triglycerides 118 <150 mg/dL [facility] Comment:Desirable Triglyceri de: less than 150 mg/dLBorderline High Triglyceride 150-199 mg/dLHigh Triglyceride: 200-499 mg/dLVery High Triglyceride: greater than or equal to 5OO mg/dL Cholesterol 205(H) <200 mg/dL [facility] Comment:Desirable Cholestero l: less than 200 mg/dLBorderline High Cholesterol: 200-239 mg/dLHigh Cholesterol: greater than 239 mg/dL LDL Cholesterol Calculated 132(H) <100 mg/dL [facility] Comment:Desirable LDL: less than 100 mg/dLNear Optimal/Above Optimal LDL: 110- 129 mg/dLBorderline High LDL: 130-159 mg/dLHigh LDL: 160-189 mg/dLVery High LDL: greater than or equal to 190 mg/dL HDL Cholesterol 50 >40 mg/dL [facility] Comment:Desirable HDL: great er than 40 mg/dL Note: This HDL assay may give artificially low results in patients with liver disease. Blood 11/16/2024 8:33 AM EST 11/16/2024 11:32 AM EST us Chioma Krishnamurthy MD LAB BLOOD ORDERABLES Fin al Result Performing Organization Address City/[facility]/ZIP Co de Phone Number [facility] [address] [place] [phone] * Hepatitis Panel, General (11/16/2024 8:33 AM EST) Hepatitis A IgM Nonreactive Nonreactive [facility] Comment:IgM antibodies to QUINTERO V not detected; does not exclude earlyacute or recovered HAV infection. ~Hepatitis B Surface Antibody NONREACTIVE Nonreactive [facility] Comment:Nonreactive: < 8.00 mIU/mL Hepatitis B Core Antibody Nonreactive Nonreactive [facility] Hepatitis C Antibody Nonreactive Nonreactive [facility] Comment:Antibodies to HCV no t detected; does not exclude early acuteHCV infection. Hepatitis B Surface Ag Negative Negative [facility] Blood 11/16/2024 8:33 AM EST 11/16/2024 11:32 AM EST us Chioma Krishnamurthy MD LAB BLOOD ORDERABLES Fin al Result Performing Organization Address City/[facility]/ZIP Co de Phone Number [facility] [address] [place] [phone] * HIV-1/2 Antigen and Antibodies, Fourth Generation, with Reflexes (11/16/2024 8:33 AM EST) HIV AB/AG Nonreactive Nonreactive [facility] Comment:HIV-1 p24 Ag and/or HIV-1/HIV-2 Ab not detected.A test result that is nonreactive does not exclude thepossibility of exposure to or infection with HIV-1 and/orHIV-2. Nonreactive results in this assay for individualswith prior exposure to HIV-1 and/or HIV-2 may be due toantigen and antibody levels that are below the limit ofdetection of this assay.The [employer] HIV Ag/Ab Combo assay result andsupplemental assay results should be interpreted inconjunction with the patient's clinical presentation,history and other laboratory results. If the results areinconsistent with clinical evidence, additional testing issuggested to confirm the result. Blood Venous blood specimen / Unknown 11/16/2024 8:33 AM EST 11/16/2024 11:32 AM EST Chioma Krishnamurthy MD LAB BLOOD ORDERABLES Fin al Result Performing Organization Address City/State/[facility] Co de Phone Number [facility] [address] [place] [phone] from Last 3 Months or Most Recently Relevant to Health Maintenance Insurance [facility] HMO Care Teams Rotary Soil Stabilizer Operator Relationship Specialty Start Date End Date Chioma Krishnamurthy MD [address] [place] [phone] PCP - General Internal Medicine 11/14/24
[2025-03-08 20:04] LABS: Lyme Abs Screen <0.90 index
== END 2025-03-07 11:02 | disposition home or self-care (01) ==
LOC: HO.HHCL 11:01
PROVIDERS: Visit Provider Family Medicine
DX: M25.562 Pain in left knee (principal); M25.462 Effusion, left knee
CPT/HCPCS: 36415; 84550; 85025; 86617; 86618

== ENCOUNTER 2025-07-23 13:29 | Outpatient (REF) | payer BC, SELFPAY ==
--- OUTSIDE RECORDS SUMMARY | 2025-07-23 09:45 | XMS_ITS | Encounter Summary ---
Author Organization [employer] Address [address] [place] [address] Care Team Providers Care Informaticist Name Role Phone Chioma Krishnamurthy MD Primary Care Provider + Encounter Details Date Type Department Care Team (Late st Contact Info) Description 07/23/2025 9:45 AM EDT Office Visit [facility] [address] [place] [address] Radha Soliz FNP [address] [place] [address] Fibromyalgia (Primary Dx); Long-term current use of opiate analgesic Social History Tobacco Use Types Packs/Day Years [...] PM EST documented as of this encounter Progress Notes * Radha Soliz, LIDAR SCIENTIST - 07/23/2025 9:45 AM EDT Subjective: Mireya Hughes is a 60 y.o. female w/ PMH hypertension, HLD, fibromyalgia, DDD, and chronic right shoulder pain, who presents to the office for - Chronic Pain Clinic Group visits. Initial Group visit: 05/21/25 Group session: Grief Chronic Pain History: Associated Diagnosis: fibromyalgia, cervical DDD, chronic right arm/wrist pain Relevant Imaging: MRI cervical spine 09/23/21 1. No focal disc protrusion at any level. 2. Mild to moderate broad disc bulge or disc osteophyte complex from T3 through C7 but no high-grade central stenosis at any level. 3. Mild right C5 and mild to moderate bilateral C6 foraminal stenosis. Current pharm tx: Tramadol 100mg Q6H PRN. Also tx with gabapentin 600mg TID Medication: States taking medication as prescribed. Past ineffective med trials: tapered off of morphine, hoping to eventually do the same with the tramadol Non-pharm tx: variety of OTC topical analgesics Related Specialists: Functional Goals: Review of Systems Constitutional: Negative for chills and fever. Respiratory: Negative for wheezing. Cardiovascular: Negative for chest pain and palpitations. Gastrointestinal: Negative for diarrhea and vomiting. Musculoskeletal: Positive for arthralgias. Physical Exam Constitutional: Appearance: Normal appearance. Pulmonary: Effort: Pulmonary effort is normal. Neurological: Mental Status: She is alert and oriented to person, place, and time. Psychiatric: Mood and Affect: Mood normal. Behavior: Behavior normal. Problem List Items Addressed This Visit Mental Health Long-term current use of opiate analgesic Overview Medication: tramadol 100mg Q6H PRN Indication: fibromyalgia Last SENIOR ACCOUNTS PAYABLE CLERK Agreement: 03/14/25 Tier: 2 (SENIOR ACCOUNTS PAYABLE CLERK visits Q3 months) Current Assessment & Plan Timeline: 05/21/25: group visit initial, utox/pill count as expected 07/23/25: group visit. Utox (+) MOP --> confirmatory testing pending. Pill count more than expected. Relevant Orders Drug Monitoring, Opiates Expanded, Quantitative, Urine POCT CHARISSE-14 Urine Drug Screen (Completed) Musculoskeletal and Injuries Fibromyalgia - Primary Current Assessment & Plan -Good engagement and participation with Group Medical Visit model -Encouraged multifactorial approach to pain control including pharm and non- pharm modalities -UTOX: positive MOP, confirmatory testing sent to lab -Pill count: 98 tablets more than expected (~12 days worth of medication). Message sent to PCP regarding pill count so that may consider decreasing frequency or dosage next appt. Relevant Orders Drug Monitoring, Opiates Expanded, Quantitative, Urine POCT CHARISSE-14 Urine Drug Screen (Completed) Follow up: 1-3 months for Group [facility]. Follow up as scheduled with PCP, sooner as needed. * Flor Edward RN - 07/23/2025 9:45 AM EDT .SENIOR ACCOUNTS PAYABLE CLERK metal mine inspector: PDMP reviewed today. Last fill date: 06/22/25 (Tramadol 50mg 2 tab qid PRN) count was (98), anticipated (0) to be remaining. .UTOX completed. Positive for (MOP), Negative for AMP, BAR, BUP, BZO, JOHNY, FTY, MDMA, MET,MTD, OXY,PCP, TCA, THC. UTOX is NOT as expected. Pt denies any opiate use. Sening it out to the lab for MOP confirmation. PCP notified. documented in this encounter Miscellaneous Notes * Assessment & Plan Note - SALAS Valdez - 07/23/2025 1:45 PM EDTAssociated Problem(s): Long-term current use of opiate analgesic Timeline: 05/21/25: group visit initial, utox/pill count as expected 07/23/25: group visit. Utox (+) MOP --> confirmatory testing pending. Pill count more than expected. * Assessment & Plan Note - SALAS Valdez - 07/23/2025 1:44 PM EDTAssociated Problem(s): Fibromyalgia -Good engagement and participation with Group Medical Visit model -Encouraged multifactorial approach to pain control including pharm and non- pharm modalities -UTOX: positive MOP, confirmatory testing sent to lab -Pill count: 98 tablets more than expected (~12 days worth of medication). Message sent to PCP regarding pill count so that may consider decreasing frequency or dosage next appt. documented in this encounter Plan of Treatment Upcoming Encounters Date Type Department Care Team (Late st Contact Info) Description 08/20/2025 9:45 AM EDT Office Visit [facility] [address] [place] [phone] Scheduled Orders Name Type Priority Associated Diagnoses Orde r Schedule Drug Monitoring, Opiates Expanded, Quantitative, Urine Lab Routine Fibromyalgia Long-term current use of opiate analgesic Ordered: 07/23/2025 documented as of this encounter Procedures Procedure Name Priority Date/Time Associated Diagnosis Comments POCT CHARISSE-14 URINE DRUG SCREEN Routine 07/23/2025 10:46 AM EDT Fibromyalgia Long-term current use of opiate analgesic documented in this encounter Results * (ABNORMAL) POCT CHARISSE-14 Urine Drug Screen (07/23/2025 10:46 AM EDT) THC Negative Negative Cocaine Screen, Urine Negative Negative Opiate Screen, Urine Positive(A) Negative Methamphetamine Screen Urine Negative Negative Amphetamine Screen, Urine Negative Negative Benzodiazepines Screen, Urine Negative Negative Barbiturate Screen, Urine Negative Negative Methadone Screen, Urine Negative Negative Buprenophine Screen, Urine Negative Negative TCA, Urine Negative Negative MDMA Urine Negative Negative ng/mL Oxycodone Screen, Urine Negative Negative Phencyclidine (PCP), Urine Negative Negative Propoxyphene, Urine Negative Negative Fentanyl, Urine Negative Negative Urine Urine specimen obtained by clean catch procedure / Unknown 07/23/2025 10:46 AM EDT Narrative Flor Edward RN - 07/23/2025 10:46 AM EDT .UTOX cup Lot#[id number] Exp. 09/03/26 Internal Pass Control Radha Soliz LIDAR SCIENTIST POINT OF CARE TEST ENTER/EDIT ORDERABLES Final Result documented in this encounter Visit Diagnoses Diagnosis Fibromyalgia- Primary Unspecified myalgia and myositis Long-term current use of opiate analgesic Encounter for long-term (current) use of other medications documented in this encounter Care Teams Informaticist Relationship Specialty Start Date End Date Chioma Krishnamurthy MD [address] [place] [id number] PCP - General Internal Medicine 11/14/24 documented as of this encounter
--- OUTSIDE RECORDS SUMMARY | 2025-07-23 14:29 | XMS_ITS | Patient Health Record ---
Author Organization [facility] Address [address] [place] [address] Care Team Providers Care Piano Instructor Name Role Phone Micha Vazquez MD Primary Care Provider Unavaila Jeanie Sheehan Unavailable [phone] Reason For Referral No Information Medications Medication SIG (Take, Route, Frequency, Duration) Notes Start Date End Date Status Lyrica 75 MG 1 capsule Orally Twi ce a day Not-Taking Morphine Active OLANZapine 7.5 MG 1 tablet Orally Once a day Active traMADol HCl Active Physical Therapy 3-4x per week for 3- 4 weeks 08/22/2014 Active oxyCODONE-Acetaminophen 7.5-325 MG 1 tablet as needed Orally every 6 hrs Not-Taking Fluoxetine Active Gabapentin Active Problems Problem Type SNOMED Code ICD Code Onset Dates Problem Status W/U Status Risk Notes Problem Pain in limb (31829675) Pain in Limb (729.5) Active confirmed Problem Acquired deformity of joint of big toe (disorder) (250944571) Hallux Limitus (735.8) Active confirmed Problem Arthralgia (68225567) Arthralgia (719.40) Active confirmed Problem Disorder of joint of ankle and/or foot (413758518) Arthritis - Degenerative (719.97) Active confirmed Plan Of Treatment Pending Test Test Name Order Date , [id number], JOINT/BURSA 0 04/08/2014, [id number]/INJECT, JOINT/BURSA 0 07/11/2014, [id number]/INJECT, JOINT/BURSA 0 08/22/2014 Insurance Providers Payer Name Payer Address Payer Phone Subscriber Number Group Number Insured Name Patient Relationship to Insured Coverage Start Date Coverage End Date [facility] [address] [place] [address] [phone] [id number] Jo Hughes Self - patient is the insured Medical (General) History Medical History History ICD Code chronic sinusitis Depression Surgical History Surgery Date(Month/Year) left foot 07/1984
--- OUTSIDE RECORDS SUMMARY | 2025-07-23 14:29 | XMS_ITS | Clinical Summary ---
Author Organization [employer] Address [address] [facility] 7t [place] [address] Care Team Providers Care Epic Application Coordinator Name Role Phone Chioma Krishnamurthy MD Primary Care Provider + Allergies No known active allergies Medications * This document contains information received from the source organization and may not represent a complete record from that organization. Multiple Vitamins-Minera ls (Oncovite) tablet Take 1 tablet by mouth Once per day. Active Zinc Acetate 25 MG capsule Take 1 capsule by mouth Once per day. Active tiZANidine (Zanaflex) 2 MG tabletIndicatio ns:Spasm of thoracic back muscle Take 1 or 2 tablets as needed for muscle spasm up to TID 30 tablet 4 Active metoprolol succinate XL (Toprol-XL) 50 MG 24 hr tablet Take 50 mg by mouth Once per day. 4 Active naproxen (Naprosyn) 500 MG tablet Take 500 mg by mouth with breakfast and with evening meal. 4 Active Calcium Carb-Cholecalci ferol (Caltrate 600+D3) 600-20 MG-MCG tablet Take 1 tablet by mouth Once per day. 90 tablet 3 5 Active naloxone (Narcan) 4 mg/0.1 mL nasal sprayIndication s:Chronic pain due to trauma Administer 1 spray (4 mg) into affected nostril(s) if needed for opioid reversal. May repeat every 2-3 minutes if needed, alternating nostrils, until medical assistance becomes available. 2 each 3 5 04/17/20 26 Active gabapentin (Neurontin) 600 MG tabletIndicatio ns:Reflex sympathetic dystrophy of right upper extremity Take 1 tablet (600 mg) by mouth 3 times daily. 120 tablet 5 5 Active traMADol (Ultram) 50 MG tabletIndicatio ns:Long-term current use of opiate analgesic Take 2 tablets (100 mg) by mouth every 6 (six) hours if needed for severe pain for up to 28 days. 224 tablet 5 07/18/20 25 Active Problems Problem Noted Date Diagnosed Date Right leg weakness 05/29/2025 Assessment & Plan (05/29/2025 9:44 AM EDT): Small likely related to iliotibial syndrome versus left knee tendinosis. Recommended to continue home PT exercises, ambulation with a cane and use a knee brace as needed. Continue Tylenol as needed and tramadol 6-8 tablets/day. Continue to come to acupuncture clinic and chronic pain management clinic Will refer to neurology to determine neuropathy, will continue gabapentin for now Overweight 05/29/2025 Assessment & Plan (05/29/2025 9:47 AM EDT): Patient has put on few pounds since last visit. discussed re weight reduction options including exercise, life style modifications, diet. Recommended to decrease soda and sugary beverage consumption, increase protein intake with meals (at least 1 portion of protein with each meal) to assist with satiety, increase dietary fiber Recommended at least 150 min/week of moderate intensity exercise. Encounter for screening colonoscopy 05/29/2025 Assessment & Plan (05/29/2025 9:47 AM EDT): Obtained result of colonoscopy from previous PCP, release of information has been obtained in October. Long-term current use of opiate analgesic 2024 Overview (05/20/2025): Medication: tramadol 100mg Q6H PRN Indication: fibromyalgia Last CARDIOLOGY CLINICAL NURSE SPECIALIST Agreement: 03/14/25 Tier: 2 (CARDIOLOGY CLINICAL NURSE SPECIALIST visits Q3 months) Assessment & Plan (07/23/2025 1:45 PM EDT): Timeline: 05/21/25: group visit initial, utox/pill count as expected 07/23/25: group visit. Utox (+) MOP --> confirmatory testing pending. Pill count more than expected. Assessment & Plan (05/21/2025 2:33 PM EDT): Timeline: 05/21/25: group visit initial, utox/pill count as expected Mixed hyperlipidemia 03/07/2025 Assessment & Plan (06/02/2025 3:00 PM EDT): We discussed re rx options. Recommended moderate amount of exercise and increase consumption of fruit, vegetables, fish and high fiber foods. Should decrease consumption of highly saturated fats or trans fats. Will hold off on medication for now and follow-up lipids in 6 months Pain and swelling of left knee 12/18/2024 [...] for worsening symptoms. 12/18/24 Assessment & Plan (06/02/2025 3:02 PM EDT): Patient to follow-up with orthopedics, she has most likely OA of left knee Advised to take Tylenol or meloxicam in between tramadol Follow-up after she is seen by orthopedics Assessment & Plan (12/18/2024 10:14 AM EST): [...] bruising 03/02/2021 Fibromyalgia 02/02/2021 Assessment & Plan (07/23/2025 1:44 PM EDT): -Good engagement and participation with Group Medical Visit model -Encouraged multifactorial approach to pain control including pharm and non- pharm modalities -UTOX: positive MOP, confirmatory testing sent to lab -Pill count: 98 tablets more than expected (~12 days worth of medication). Message sent to PCP regarding pill count so that may consider decreasing frequency or dosage next appt. Assessment & Plan (06/02/2025 3:04 PM EDT): Encouraged to follow-up with chronic pain management group and acupuncture clinic Encouraged regarding healthy diet and daily outdoor exercise We discussed about mental health support, she declines further referral at this time Assessment & Plan (05/21/2025 2:33 PM EDT): -Good engagement and participation with Group Medical Visit model, today was first visit. -Encouraged multifactorial approach to pain control including pharm and non- pharm modalities -UTOX and Pill count as expected Assessment & Plan (11/14/2024 10:25 AM EST): [...] use of opioids 10/20/2020 Assessment & Plan (06/02/2025 3:02 PM EDT): Patient is doing fairly well on tramadol 100 225 mg/day. Advised to reschedule appointment with the pain clinic Advised to cut down tramadol as much as she can to 4 tablets/day, advised to continue acupuncture Follow-up with CARDIOLOGY CLINICAL NURSE SPECIALIST nurse regarding tramadol prescription Assessment & Plan (11/14/2024 11:05 AM EST): She has been on parts counterman morphine for pain management, currently cutting down. [...] to keep medications in a safe place. Reflex sympathetic dystrophy of right upper extr emity 09/27/2017 Assessment & Plan (05/29/2025 9:45 AM EDT): Status post work-related injury more than 2 years ago. Continue gabapentin and regular exercises Will come for trigger point injections as needed Continue followed up by acupuncture and in-house chronic pain management clinic. Discussed importance of remaining active and follow-up closely with psychotherapist Assessment & Plan (11/14/2024 11:06 AM EST): Pt has motion limitation on Rt arm due to work related injury more than 2 years ago. Continue management as above. Consider Trigger Point injections and PT. I gave her information about acupuncture clinic. Resolved Problems Problem Noted Date Diagnosed Date Resolved Date Neck pain 08/08/2019 05/29/2025 Myalgia 08/25/2018 05/29/2025 Encounters * This document contains information received from the source organization and may not represent a complete record from that organization. Date Type Department Care Team Description 07/23/2025 9:45 AM EDT Office Visit [facility] [address] [place] [phone] Radha Soliz, SALAS Fibromyalgia (Primary Dx); Long-term current use of opiate analgesic 07/23/2025 Telephone [facility] [address] [place] [address] Flor Edward RN 07/23/2025 Travel 06/14/2025 Refill [facility] [address] [place] [phone] Chioma Krishnamurthy MD Long-term current use of opiate analgesic (Primary Dx) 05/29/2025 9:15 AM EDT Office Visit [facility] [address] [place] [phone] Chioma Krishnamurthy MD Right leg weakness (Primary Dx); Reflex sympathetic dystrophy of right upper extremity; Overweight; Screening mammogram for breast cancer; Encounter for screening colonoscopy; Dietary counseling; Exercise counseling 05/29/2025 Travel 05/28/[address] [address] Chioma Krishnamurthy MD chart prep 05/21/2025 9:45 AM EDT Office Visit [address] [address] Radha Soliz FNP Fibromyalgia (Primary Dx); Long-term current use of opiate analgesic 05/21/2025 Travel 04/26/2025 10:15 AM EDT Office Visit [facility] [address] [place] [address] Tori Keene MD Primary hypertension (Primary Dx); Pre-op evaluation 04/26/2025 Travel from Last 3 Months Immunizations Immunization Administration Dates Next Due Influenza Injectable Quadriv [...] Sign Reading Time Taken Comments Blood Pressure 130/84 05/29/2025 9:04 AM EDT Pulse 80 05/29/2025 9:04 AM EDT Temperature 36.3 C (97.3 F) 05/29/2025 9:04 AM EDT Respiratory Rate 12 05/29/2025 9:04 AM EDT Oxygen Saturation 97% 03/07/2025 10:23 AM EDT Inhaled Oxygen Concentration - - Weight 66.7 kg (147 lb) 05/29/2025 9:04 AM EDT Height 162.6 cm (5' 4 ) 05/29/2025 9:04 AM EDT Body Mass Index 25.23 05/29/2025 9:04 AM EDT Plan of Treatment Upcoming Encounters Date Type Department Care Team (Late st Contact Info) Description 08/20/2025 9:45 AM EDT Office Visit [facility] [address] [place] [phone] Health Maintenance Due Date Last Done Comments CT Colonography 1965 Colonoscopy 1965 Colorectal Cancer Screening 1965 FIT DNA/Cologuard 1965 FIT 1965 FOBT 1965 Sigmoidoscopy 1965 DTaP/Tdap/Td Vaccines (1 - Tdap) 1984 Mammogram 2005 Pneumococcal Vaccine: 50+ Years (1 of 1 - PCV) 2015 Zoster Vaccines (2 of 2) 05/29/2024 04/03/2024 COVID-19 Vaccine (1 - season) 2024 Pap Smear 08/21/2024 08/21/2021 Influenza Vaccine (#1) 2025 , 11/19/2023, 11/03/2020, Additional history exists SDOH Screening 11/07/2025 11/07/2024 Depression Screening 11/14/2025 11/14/2024, 11/14/20 Alcohol/Substance Use Screening 05/29/2026 05/29/2025 Disability Screening 05/29/2026 05/29/2025 Tobacco Screening 05/29/2026 05/29/2025 Cervical Cancer Screening 08/21/2026 HPV/Cotest 08/21/2026 08/21/2021 Lipid Panel 11/16/2029 11/16/2024 RSV Patients and Patients Aged 60 years or older (1 - 1-dose 75+ series) 2040 HIV Screening Completed 11/16/2024 Hepatitis C Screening Completed 11/16/2024 HIB Vaccines Aged Out No longer eligi ble based on patient's age to complete this topic HPV Vaccines Aged Out No longer eligi ble based on patient's age to complete this topic Hepatitis A Vaccines Aged Out No long er eligible based on patient's age to complete this topic Hepatitis B Vaccines Aged Out No long er eligible based on patient's age to complete this topic IPV Vaccines Aged Out No longer eligi ble based on patient's age to complete this topic Meningococcal B Vaccine Aged Out No l onger eligible based on patient's age to complete [...] Fibromyalgia Long-term current use of opiate analgesic POCT CHARISSE-14 URINE DRUG SCREEN Routine 05/21/2025 1:21 PM EDT Long-term current use of opiate analgesic HEPATITIS PANEL, GENERAL Routine 11/16/2024 8:33 AM EST Reflex sympathetic dystrophy of right upper extremity HIV 1/2 ANTIGEN/ANTIBODY, FOURTH GENERATION W/RFL Routine 11/16/2024 8:33 AM EST Reflex sympathetic dystrophy of right upper extremity LIPID PANEL WITH REFLEX TO DIRECT LDL Routine 11/16/2024 8:33 AM EST Primary hypertension HM PAP/HPV Routine 08/21/2021 from Last 3 Months or Most Recently Relevant to Health Maintenance Results * (ABNORMAL) POCT CHARISSE-14 Urine Drug Screen (07/23/2025 10:46 AM EDT) Only the most recent of2 resultswithin the time period is included. THC Negative Negative Cocaine Screen, Urine Negative [...] - 07/23/2025 10:46 AM EDT .UTOX cup Lot#[id number] Exp. 09/03/26 Internal Pass Control us Radha Soliz MIRROR FRAMER POINT OF CARE TEST ENTER/EDIT ORDERABLES Final Result * (ABNORMAL) Lipid Panel with Reflex to Direct LDL (11/16/2024 8:33 AM EST) Triglycerides 118 <150 mg/dL [facility] Comment:Desirable Triglyceri de: less than 150 mg/dLBorderline High Triglyceride 150-199 mg/dLHigh Triglyceride: 200-499 mg/dLVery High Triglyceride: greater than or equal to 5OO mg/dL Cholesterol 205(H) <200 mg/dL [facility] Comment:Desirable Cholestero l: less than 200 mg/dLBorderline High Cholesterol: 200-239 mg/dLHigh Cholesterol: greater than 239 mg/dL LDL Cholesterol Calculated 132(H) <100 mg/dL [facility] Comment:Desirable LDL: less than 100 mg/dLNear Optimal/Above Optimal LDL: 110- 129 mg/dLBorderline High LDL: 130-159 mg/dLHigh LDL: 160-189 mg/dLVery High LDL: greater than or equal to 190 mg/dL HDL Cholesterol 50 >40 mg/dL [facility] Comment:Desirable HDL: great er than 40 mg/dL Note: This HDL assay may give artificially low results in patients with liver disease. Blood 11/16/2024 8:33 AM EST 11/16/2024 11:32 AM EST us Chioma Krishnamurthy MD LAB BLOOD ORDERABLES Fin al Result [facility] [address] [place] [phone] * Hepatitis Panel, General (11/16/2024 8:33 AM EST) Hepatitis A IgM Nonreactive Nonreactive [facility] Comment:IgM antibodies to QUINTERO V not detected; does not exclude earlyacute or recovered HAV infection. ~Hepatitis B Surface Antibody NONREACTIVE Nonreactive [facility] Comment:Nonreactive: < 8.00 mIU/mL Hepatitis B Core Antibody Nonreactive Nonreactive [facility] Hepatitis C Antibody Nonreactive Nonreactive [facility] Comment:Antibodies to HCV no t detected; does not exclude early acuteHCV infection. Hepatitis B Surface Ag Negative Negative [facility] Blood 11/16/2024 8:33 AM EST 11/16/2024 11:32 AM EST us Chioma Krishnamurthy MD LAB BLOOD ORDERABLES Fin al Result Performing Organization Address City/[facility]/ZIP Co de Phone Number [facility] [address] [place] [address] [phone] * HIV-1/2 Antigen and Antibodies, Fourth Generation, with Reflexes (11/16/2024 8:33 AM EST) HIV AB/AG Nonreactive Nonreactive [facility] Comment:HIV-1 p24 Ag and/or HIV-1/HIV-2 Ab not detected.A test result that is nonreactive does not exclude thepossibility of exposure to or infection with HIV-1 and/orHIV-2. Nonreactive results in this assay for individualswith prior exposure to HIV-1 and/or HIV-2 may be due toantigen and antibody levels that are below the limit ofdetection of this assay.The [employer] HIV Ag/Ab Combo assay result andsupplemental assay results should be interpreted inconjunction with the patient's clinical presentation,history and other laboratory results. If the results areinconsistent with clinical evidence, additional testing issuggested to confirm the result. Blood Venous blood specimen / Unknown 11/16/2024 8:33 AM EST 11/16/2024 11:32 AM EST us Chioma Krishnamurthy MD LAB BLOOD ORDERABLES Fin al Result Performing Organization Address City/[facility]/ZIP Co de Phone Number [facility] [address] [place] [address] [phone] * HM PAP/HPV (08/21/2021) Pap Smear 1. NILM 1. NILM Comment:due in 5 years HPV Not Detected Undetected, Indeterminat e, Quantitative , Not Detected us Historical Provider HEALTH MAINTENANCE Final Result from Last 3 Months or Most Recently Relevant to Health Maintenance Insurance BCBS PPO [place], [place] P[place] [employer] Care Teams Epic Application Coordinator Relationship Specialty Start Date End Date Chioma Krishnamurthy MD [address] [place] [address] PCP - General Internal Medicine 11/14/24
--- OUTSIDE RECORDS SUMMARY | 2025-07-23 14:29 | XMS_ITS | Encounter Summary ---
Author Organization [employer] Address [address] [facility] 7 [place] [address] Care Team Providers Care Stationary Fireman Name Role Phone Chioma Krishnamurthy MD Primary Care Provider + Reason for Visit * Reason Onset Date Comments New Patient 08/17/2024 Encounter Details Date Type Department Care Team ([facility] st Contact Info) Description 08/17/2024 Telephone [facility] [address], [place] [phone] Jacob Boyd MD [address] [place], [place] [phone] New Patient Social History Tobacco Use Types [...] was advised to have insurance switched to [employer] and she is requesting to reschedule new pt appt. Please contact pt at [phone]. documented in this encounter Plan of Treatment Upcoming Encounters Date Type Department Care Team (Late st Contact Info) Description 08/20/2025 9:45 AM EDT Office Visit [facility] [address] [place] [address] documented as of this encounter Visit Diagnoses Not on filedocumented in this encounter Care Teams Stationary Fireman Relationship Specialty Start Date End Date Chioma Krishnamurthy MD [address] [place] [address] PCP - General Internal Medicine 11/14/24 documented as of this encounter
--- OUTSIDE RECORDS SUMMARY | 2025-07-23 14:32 | XMS_ITS | Encounter Summary ---
Author Organization [employer] Address [address] [place] [address] Care Team Providers Care Information Technology Security Analyst Name Role Phone Chioma Krishnamurthy MD Primary Care Provider + Encounter Details Date Type Department Care Team ([facility] st Contact Info) Description 07/23/2025 Telephone [facility] [address] [place], [place] [phone] Flor Edward, RN [address] [place] [address] Social History Tobacco Use Types Packs/Day Years [...] encounter Miscellaneous Notes * Telephone Encounter - Flor Edward RN - 07/23/2025 10:46 AM EDT Pt here at the pain group. Utox pos. MOP. Pt denies any opiate use. Sening it out to the lab for MOP confirmation. documented in this encounter Plan of Treatment Upcoming Encounters Date Type Department Care Team (Late st Contact Info) Description 08/20/2025 9:45 AM EDT Office Visit [facility] [address] [place] [address] documented as of this encounter Visit Diagnoses Not on filedocumented in this encounter Care Teams Information Technology Security Analyst Relationship Specialty Start Date End Date Chioma Krishnamurthy MD [address] [place] [phone] PCP - General Internal Medicine 11/14/24 documented as of this encounter
--- OUTSIDE RECORDS SUMMARY | 2025-07-23 14:32 | XMS_ITS | Patient Health Record ---
Author Organization [facility] Address [address] [place] [address] Care Team Providers Care Order Manager Name Role Phone Taylor (RETIRED) Micha TURNER Primary Care Provide r Unavailable Hector Gonsales Unavailable [phone] Reason For Referral No Information Medications Medication SIG (Take, Route, Fr equency, Duration) Notes Start Date End Date Status traMADol HCl Active Gabapentin Active Morphine Sulfate Act krystina Baclofen 10 MG take 1 tablet by bhupendra three times a day with food Oral for 30 Acti ve MiraLax 1 1 bottle Orally as d irected for 1 days 09/19/2016 Active Dulcolax 5 MG 4 tablets Orally as directed for 1 days 09/19/2016 Active Problems Problem Type SNOMED Code ICD Code Onset Dates Problem Status W/U Status Risk Notes Problem [id number] Encounter for screening for malignant neoplasm of colon (Z12.11) Active confirmed Problem Encounter for screening for malignant neoplasm of rectum (Z12.12) Active confirmed Problem [id number] Irritable bowel syndrome with both constipation and diarrhea (K58.2) Active confirmed Plan Of Treatment Future Test Test Name Order Date COLONOSCOPY 09/14/2016 Insurance Providers Payer Name Payer Address Payer Phone Subscriber Number Group Number Insured Name Patient Relationship to Insured Coverage Start Date Coverage End Date MEDICAID OF [facility] [employer] [address] [place] [phone] [id number] EDUARDO LARIOS Self - patient is the insured Medical (General) History Medical History History ICD Code RSD--Right UE--from an injury at work Arthritis of right toe Denies RI,DM,CVA,Lung disease,renal dise ase Surgical History Surgery Date(Month/Year) Foot surgery left 1994 BTL 1998 Right wrist surgery
--- OUTSIDE RECORDS SUMMARY | 2025-07-23 14:32 | XMS_ITS | Encounter Summary ---
Author Organization [employer] Address [address] [facility] [address] [place] [address] Care Team Providers Care Ship Laborer Name Role Phone Chioma Krishnamurthy MD Primary Care Provider + Encounter Details Date Type Department Care Team (Latest Contact Info) Description 07/23/2025 Travel Social History Tobacco Use Types Packs/Day [...] as of this encounter Plan of Treatment Upcoming Encounters Date Type Department Care Team (Late st Contact Info) Description 08/20/2025 9:45 AM EDT Office Visit [facility] [address] [place] [address] documented as of this encounter Visit Diagnoses Not on filedocumented in this encounter Care Teams Ship Laborer Relationship Specialty Start Date End Date Chioma Krishnamurthy MD [address] [place] [address] PCP - General Internal Medicine 11/14/24 documented as of this encounter
--- OUTSIDE RECORDS SUMMARY | 2025-07-23 14:32 | XMS_ITS | Encounter Summary ---
Author Organization [facility] Address [address] [place] [address] [place] [phone] Phone Care Team Providers Care Miller Apprentice Name Role Phone Chioma Krishnamurthy MD Primary Care Provider + Reason for Visit * Reason Comments Medication Refill Encounter Details Date Type Department Care Team ([facility] st Contact Info) Description 04/18/2025 [facility] [address] [place] [address] [place] [address] oCle Taylor MD [address] [facility] 2nd [place] [address] [email or web address] Medication Refill Social History Tobacco Use Types Packs/Day Years Used Date Smoking Tobacco: Never Smokeless Tobacco: Never Alcohol Use Standard Drinks/Week Comments No 0 (1 standard drink = 0.6 oz pur e alcohol) Education Answer Date Recorded Are you interested in more education? Not on radha e 03/25/2023 Are you concerned about learning? Not on file 03/25/2023 No 03/25/2023 No 03/25/2023 Digital Access Answer Date Recorded No 04/25/2023 No 04/25/2023 Reliable internet access at home? Not on file 04/25/2023 Device with a working camera? Not on file Intimate Partner Violence Answer Date R ecorded Are you denied basic needs s uch as food, clothing, or medical care? No 03/26/2025 In the past 12 months have y ou been in a relationship with a person who hurts, threatens, or tries to control you? No 03/26/2025 Are you denied basic needs s uch as food, clothing, or medical care? No 03/26/2025 In the past 12 months have y ou been in a relationship with a person who hurts, threatens, or tries to control you? No 03/26/2025 Comments Unknown Sex and Gender Information Value Date Recorded Sex Assigned at Not on file Legal Sex Female 9:41 PM EDT Gender Identity Not on file Sexual Orientation Not on file documented as of this encounter Progress Notes * Romina Rocha - 04/18/2025 12:[address] Taylor's note on last month's refill, PCP should be taking over documented in this encounter Plan of Treatment Not on file documented as of this encounter Visit Diagnoses Diagnosis Reflex sympathetic dystrophy of right upper extremity documented in this encounter Care Teams Miller Apprentice Relationship Specialty Start Date End Date Chioma Krishnamurthy MD PCP - General Internal Medicine 03/26/25 documented as of this encounter Additional Source Comments The information contained in this document represents components of the legal health record. It is not the complete legal health record.[facility]
--- OUTSIDE RECORDS SUMMARY | 2025-07-23 14:32 | XMS_ITS | Clinical Summary ---
Author Organization [facility] Address [address] [place] [phone] Phone Care Team Providers Care Tobacco Shaker Name Role Phone Chioma Krishnamurthy MD Primary Care Provider + Allergies No known active allergies Medications metoprolol succinate (TOPROL-XL) 50 MG 24 hr tabletIndications :Take half tab daily Take 50 mg by mouth daily. Indications: Take half tab daily Active therapeutic multivitamin tablet Take 1 tablet by mouth daily. Active zinc acetate 25 mg (zinc) Cap Take 1 capsule by mouth daily. Active vitamin A 23330 UNIT capsule Take 10,000 Units by mouth daily. Active meclizine (ANTIVERT) 25 mg tablet TAKE 1 TABLET BY MOUTH EVERY DAY NEEDED FOR MOTION SICKNESS 2 Active POTASSIUM ORAL Take by mouth. Active morphine (MS CONTIN) 15 MG ER tabletIndications :Reflex sympathetic dystrophy of right upper extremity Take 1 tablet (15 mg total) by mouth nightly at bedtime for 28 days. Pt. may request partial fill 28 tablet 4 Active traMADoL (ULTRAM) 50 mg tabletIndications :Reflex sympathetic dystrophy of right upper extremity Take 2 tablets (100 mg total) by mouth every 6 (six) hours as needed. Partial fill at patients request 224 tablet 4 Active gabapentin (NEURONTIN) 600 MG tabletIndications :Reflex sympathetic dystrophy of right upper extremity TAKE 1 TABLET BY MOUTH FOUR TIMES DAILY 112 tablet 3 4 Active capsaicin (CAPZASIN-HP) 0.1 % Crea Apply topically 3 (three) times a day. 42.5 g 5 Active Active Problems Problem Noted Date Diagnosed Date Chronic right shoulder pain 10/26/2021 Easy bruising 03/02/2021 Fibromyalgia 02/02/2021 Chronic, continuous use of opioids 10/20/2020 Neck pain 08/08/2019 Myalgia 08/25/2018 Chronic pain due to trauma 04/09/2018 Reflex sympathetic dystrophy of right upper extr emity 09/27/2017 Immunizations Immunization Administration Dates Next Due INFLUENZA, SPLIT VIRUS, TRIVALENT PF 09/21/2017 Influenza Quadrivalent MDCK Preservative Free IM 11/03/2020 Influenza Quadrivalent Preservative Free IM 09/29 Influenza Quadrivalent w/ Preservative IM 2018 Family History Medical History Relation Comments CV disease Father 2 CV disease Mother 2 Relation Status Comments Father 1 Alive Father 2 Mother 1 Alive Mother 2 Social History Tobacco Use Types Packs/Day Years Used Date Smoking Tobacco: Never Smokeless Tobacco: Never Tobacco Cessation:Counseling Given: No Alcohol Use Standard Drinks/Week Comments No 0 [...] on file Sexual Orientation Not on file Last Filed Vital Signs Vital Sign Reading Time Taken Comments Blood Pressure 144/90 03/26/2025 8:32 AM EDT Pulse 72 03/26/2025 8:32 AM EDT Temperature 36.1 C (97 F) 03/26/2025 8:32 AM EDT Respiratory Rate 18 03/26/2025 8:32 AM EDT Oxygen Saturation 99% 03/26/2025 8:32 AM EDT Inhaled Oxygen Concentration - - Weight 65.8 kg (145 lb) 03/26/2025 8:32 AM EDT Height 162.6 cm (5' 4 ) 03/26/2025 8:32 AM EDT Body Mass Index 24.89 03/26/2025 8:32 AM EDT Plan of Treatment Health Maintenance Due Date Last Done Comments Adult Td,Tdap Booster 1965 LIPID PANEL 1965 POTASSIUM LEVEL 1965 DEPRESSION SCREENING 1977 HEPATITIS C SCREENING 1983 HIV ONE-TIME SCREENING (18-65 YEARS) 1983 PAP SMEAR 1986 MAMMOGRAM 2005 COLOGUARD 2010 COLONOSCOPY 2010 COLORECTAL CANCER SCREENING 2010 FIT TEST 2010 FOBT 2010 SIGMOIDOSCOPY 2010 VIRTUAL COLONOSCOPY 2010 PNEUMOCOCCAL VACCINES (50+ years) (1 of 1 - PCV) 2015 ZOSTER VACCINES (1 of 2) 2015 COVID-19 VACCINE (1 - 2023- season) 2024 INFLUENZA VACCINE (#1) 2025 , 08/28/2019, 10/20/2018, Additional history exists RSV VACCINE (1 - 1-dose 75+ series) 2040 SMOKING STATUS SCREENING (Once After 26 Yrs) Completed 04/05/2025 HEPATITIS A VACCINES Aged Out No long er eligible based on patient's age to complete this topic HIB VACCINES Aged Out No longer eligi ble based on patient's age to complete this topic MENINGOCOCCAL VACCINES (ACWY) Aged Out No longer eligible based on patient's age to complete this topic MENINGOCOCCAL VACCINES (B) Aged Out N o longer eligible based on patient's age to complete this topic Medical Devices Not on file Insurance [facility] PPO [facility] [place] [facility] [place] [facility] OUT [facility] [place], [place] [facility] [place], [place] [facility] OUT OF STATE [place] [employer] [place] Care Teams Tobacco Shaker Relationship Specialty Start Date End Date Chioma Krishnamurthy MD PCP - General Internal Medicine 03/26/25 Additional Source Comments The information contained in this document represents components of the legal health record. It is not the complete legal health record.[facility]
[2025-07-26 11:17] LABS: Hydrocodone, Ur NEGATIVE; Hydromorphone, Ur NEGATIVE; Morphine, Ur 1156
[2025-07-26 11:18] LABS: Norhydrocodone, Ur NEGATIVE; Oxycodone, Ur NEGATIVE; Oxymorphone, Ur NEGATIVE
[2025-07-26 11:19] LABS: Noroxycodone, Ur NEGATIVE
[2025-07-26 11:20] LABS: Codeine, Ur NEGATIVE
== END 2025-07-23 13:30 | disposition home or self-care (01) ==
LOC: HO.HHCLNP 13:29
PROVIDERS: Visit Provider Registered Nurse
DX: Z51.81 Encounter for therapeutic drug level monitoring (principal); F11.90 Opioid use, unspecified, uncomplicated
CPT/HCPCS: 80365; G0480

== ENCOUNTER 2025-07-25 11:30 | Outpatient (REF) | payer BC, SELFPAY ==
--- OUTSIDE RECORDS SUMMARY | 2025-07-23 09:45 | XMS_ITS | Encounter Summary ---
Author Organization [employer] Address [address] [place] [address] Care Team Providers Care Ichthyology Teacher Name Role Phone Chioma Krishnamurthy MD Primary Care Provider + Encounter Details Date Type Department Care Team (Late st Contact Info) Description 07/23/2025 9:45 AM EDT Office Visit [facility] [address] [place] [address] Radha Soliz FNP [address] [place] [address] Fibromyalgia (Primary Dx); Long-term current use of [...] this encounter Progress Notes * Radha Soliz, FLAT FINISHER - 07/23/2025 9:45 AM EDT Subjective: Mireya [...] tramadol 100mg Q6H PRN Indication: fibromyalgia Last MECHANICAL MANAGER Agreement: 03/14/25 Tier: 2 (MECHANICAL MANAGER visits Q3 months) Current Assessment & Plan [...] Edward RN - 07/23/2025 9:45 AM EDT .MECHANICAL MANAGER footwear sales representative: PDMP reviewed today. Last fill date: 06/22/25 [...] Description 08/20/2025 9:45 AM EDT Office Visit [facility] [address] [place] [phone] Scheduled Orders Name Type Priority Associated Diagnoses [...] - 07/23/2025 10:46 AM EDT .UTOX cup Lot#[id number] Exp. 09/03/26 Internal Pass Control Radha Soliz FLAT FINISHER POINT OF CARE TEST ENTER/EDIT ORDERABLES Final Result documented in this encounter Visit Diagnoses Diagnosis Fibromyalgia- Primary Unspecified myalgia and myositis Long-term current use of opiate analgesic Encounter for long-term (current) use of other medications documented in this encounter Care Teams Ichthyology Teacher Relationship Specialty Start Date End Date Chioma Krishnamurthy MD [address] [place] [id number] PCP - General Internal Medicine 11/14/24 documented as of this encounter
--- NOTE | ~2025-07-25 | MM_ITS ---
EXAMINATION: MM SCREENING DIGITAL BREAST TOMOSYNTHESIS, BILATERAL CLINICAL INFORMATION: Screening. Asymptomatic. COMPARISON: Comparison made to multiple prior, most recent August 11, 2018, and most remote March 05, 2015. TECHNIQUE: Digital breast tomosynthesis is performed in mediolateral oblique and craniocaudal views along with computer-aided detection (CAD). FINDINGS: BREAST COMPOSITION: The breasts are heterogeneously dense, which may obscure small masses (ACR BI-RADS breast composition Category c). BILATERAL BREASTS: No significant masses, suspicious calcifications or other abnormalities are seen in either breast. MM/MM tomosynthesis screening BI IMPRESSION: BILATERAL BREASTS: Negative, no mammographic evidence of malignancy. Normal interval follow-up is recommended in 12 months. ASSESSMENT: BI-RADS 1 - Negative RECOMMENDATION: Routine annual mammography screening. FOLLOW-UP: 1 year F/U This examination should not preclude the clinical evaluation of a suspicious palpable abnormality. This patient's information was entered into a reminder system with a target due date for their next mammogram. Electronically signed by: Alexandra Mitchell MD 07/27/2025 05:40 PM EDT
--- OUTSIDE RECORDS SUMMARY | 2025-07-25 12:47 | XMS_ITS | Patient Health Record ---
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) Active confirmed Problem Arthralgia (53310578) Arthralgia (719.40) Active confirmed Problem Disorder of joint of ankle and/or foot (242482691) Arthritis - Degenerative (719.97) Active confirmed Plan Of Treatment Pending Test Test Name Order Date , [id number]/INJECT, JOINT/BURSA 0 04/08/2014, [id number]/INJECT, JOINT/BURSA 0 07/11/2014, [id number]/INJECT, JOINT/BURSA 0 08/22/2014 Insurance Providers Payer Name Payer Address Payer Phone Subscriber Number Group Number Insured Name Patient Relationship to Insured Coverage Start Date Coverage End Date [facility] [address] [place] [address] [phone] [id number] Jo Hughes Self - patient is the insured Medical (General) History Medical History History ICD Code chronic sinusitis Depression Surgical History Surgery Date(Month/Year) left foot 07/1984
--- OUTSIDE RECORDS SUMMARY | 2025-07-25 12:47 | XMS_ITS | Encounter Summary ---
Author Organization [facility] Address [address] [place] [phone] Phone Care Team Providers Care Pre Sales Architect Name Role Phone Ayana Whitney MD Primary Care Provider [phone] Chioma Krishnamurthy MD Primary Care Provider + Encounter Details Date Type Department Care Team (Late st Contact Info) Description 09/18/2021 Procedure Pass [facility], [address] [address] Social History Tobacco Use Types Packs/Day Years Used Date Smoking Tobacco: Never Smokeless Tobacco: Never Alcohol Use Standard Drinks/Week Comments No 0 (1 standard drink = 0.6 oz pur e alcohol) Comments Unknown Sex and Gender Information Value Date Recorded Sex Assigned at Not on file Legal Sex Female 9:41 PM EDT Gender Identity Not on file Sexual Orientation Not on file documented as of this encounter Plan of Treatment Not on file documented as of this encounter Visit Diagnoses Not on filedocumented in this encounter Care Teams Pre Sales Architect Relationship Specialty Start Date End Date Ayana Whitney MD [address] [place] [address] PCP - General Internal Medicine 03/30/21 03/25/25 Chioma Krishnamurthy MD [address] [place] [address] PCP - General Internal Medicine 03/26/25 documented as of this encounter Additional Source Comments The information contained in this document represents components of the legal health record. It is not the complete legal health record.[facility]
--- OUTSIDE RECORDS SUMMARY | 2025-07-25 12:47 | XMS_ITS | Clinical Summary ---
Author Organization [facility] Address [address] [place] [phone] Phone Care Team Providers Care Production Sorter Name Role Phone Chioma Krishnamurthy MD Primary [...] capsule by mouth daily. Active vitamin A 21619 UNIT capsule Take 10,000 Units by mouth [...] topic Medical Devices Not on file Insurance [facility] PPO [facility] [place] [place] [facility] [place] [place] [facility] [place] [facility] [place] [facility] OUT OF STATE [place] [employer] [place] Care Teams Production Sorter Relationship Specialty Start Date End Date Chioma Krishnamurthy MD PCP - General Internal Medicine 03/26/25 Additional Source Comments The information contained in this document represents components of the legal health record. It is not the complete legal health record.[facility]
--- OUTSIDE RECORDS SUMMARY | 2025-07-25 12:47 | XMS_ITS | Encounter Summary ---
Author Organization [employer] Address [address] [facility] 7 [place] [address] Care Team Providers Care Parts Clerk Plant Maintenance Name Role Phone Chioma Krishnamurthy MD Primary Care Provider + Reason for Visit * Reason Onset Date Comments New Patient 08/17/2024 Encounter Details Date Type Department Care Team ([facility] st Contact Info) Description 08/17/2024 Telephone [facility] [address] [place], [place] [phone] Jacob Boyd MD [address] [place], [place] [phone] New Patient Social History Tobacco Use Types [...] was advised to have insurance switched to [place] C[employer] and she is requesting to reschedule new pt appt. Please contact pt at [phone]. documented in this encounter Plan of Treatment Upcoming Encounters Date Type Department Care Team (Late st Contact Info) Description 08/20/2025 9:45 AM EDT Office Visit [facility] [address] [place] [address] documented as of this encounter Visit Diagnoses Not on filedocumented in this encounter Care Teams Parts Clerk Plant Maintenance Relationship Specialty Start Date End Date Chioma Krishnamurthy MD [address] [place] [address] PCP - General Internal Medicine 11/14/24 documented as of this encounter
--- OUTSIDE RECORDS SUMMARY | 2025-07-25 12:47 | XMS_ITS | Encounter Summary ---
Author Organization [employer] [facility] Address [address] [facility] [address] [place] [address] Care Team Providers Care Arts Education Teacher Name Role Phone Chioma Krishnamurthy MD Primary Care Provider + Encounter Details Date Type Department Care Team ([facility] st Contact Info) Description 07/23/2025 Telephone [facility] [address] [place], [place] [phone] Flor Edward, RN [address] [place] [address] Social History Tobacco Use Types Packs/Day Years [...] Description 08/20/2025 9:45 AM EDT Office [facility] [address] [place] [address] documented as of this encounter Visit Diagnoses Not on filedocumented in this encounter Care Teams Arts Education Teacher Relationship Specialty Start Date End Date Chioma Krishnamurthy MD [address] [place] [address] PCP - General Internal Medicine 11/14/24 documented as of this encounter
--- OUTSIDE RECORDS SUMMARY | 2025-07-25 12:47 | XMS_ITS | Encounter Summary ---
Author Organization [employer] Address [address] [facility] [address] 7[address] [place] [address] Care Team Providers Care Sheriff Name Role Phone Chioma Krishnamurthy MD Primary [...] Description 08/20/2025 9:45 AM EDT Office Visit [facility] [address] [place] [address] documented as of this encounter Visit Diagnoses Not on filedocumented in this encounter Care Teams Sheriff Relationship Specialty Start Date End Date Chioma Krishnamurthy MD [address] [place] [address] PCP - General Internal Medicine 11/14/24 documented as of this encounter
--- OUTSIDE RECORDS SUMMARY | 2025-07-25 12:47 | XMS_ITS | Clinical Summary ---
Author Organization [employer] Address [address] [facility] 7t [place] [address] Care Team Providers Care Nutrition Instructor Name Role Phone Chioma Kirshnamurthy MD Primary Care Provider + Allergies No [...] tramadol 100mg Q6H PRN Indication: fibromyalgia Last [facility] Agreement: 03/14/25 Tier: 2 ([facility] visits Q3 months) Assessment & Plan (07/23/2025 [...] tablets/day, advised to continue acupuncture Follow-up with [facility] nurse regarding tramadol prescription Assessment & Plan (11/14/2024 11:05 AM EST): She has been on joint terminal attack controller morphine for pain management, currently cutting down. [...] Description 07/23/2025 9:45 AM EDT Office Visit [facility] [address] [place] [address] Radha Soliz, SALAS Fibromyalgia (Primary Dx); Long-term current use of opiate analgesic 07/23/2025 Telephone [facility] [address] [place] [address] Flor Edward RN 07/23/2025 Travel 06/14/2025 Refill [facility] [address] [place] [address] Chioma Krishnamurthy MD Long-term current use of opiate analgesic (Primary Dx) 05/29/2025 9:15 AM EDT Office Visit [facility] [address] [place] [address] Chioma Krishnamurthy MD Right leg weakness (Primary Dx); Reflex sympathetic dystrophy of right upper extremity; Overweight; Screening mammogram for breast cancer; Encounter for screening colonoscopy; Dietary counseling; Exercise counseling 05/29/2025 Travel 05/28/[address] [address] Chioma Krishnamurthy MD chart prep 05/21/2025 9:45 AM EDT Office Visit [address] [address] Radha Soliz FNP Fibromyalgia (Primary Dx); Long-term current use of opiate analgesic 05/21/2025 Travel 04/26/2025 10:15 AM EDT Office Visit [facility] [address] [place] [address] Tori Keene MD Primary hypertension (Primary Dx); [...] Description 08/20/2025 9:45 AM EDT Office Visit [facility] [address] [place] [phone] Health Maintenance Due Date Last Done Comments [...] - 07/23/2025 10:46 AM EDT .UTOX cup Lot#[id number] Exp. 09/03/26 Internal Pass Control us Radha Soliz POULTRY BARN MANAGER POINT OF CARE TEST ENTER/EDIT ORDERABLES Final Result * (ABNORMAL) Lipid Panel with Reflex to Direct LDL (11/16/2024 8:33 AM EST) Triglycerides 118 <150 mg/dL [facility] Comment:Desirable Triglyceri de: less than 150 mg/dLBorderline High Triglyceride 150-199 mg/dLHigh Triglyceride: 200-499 mg/dLVery High Triglyceride: greater than or equal to 5OO mg/dL Cholesterol 205(H) <200 mg/dL [facility] Comment:Desirable Cholestero l: less than 200 mg/dLBorderline High Cholesterol: 200-239 mg/dLHigh Cholesterol: greater than 239 mg/dL LDL Cholesterol Calculated 132(H) <100 mg/dL [facility] Comment:Desirable LDL: less than 100 mg/dLNear Optimal/Above Optimal LDL: 110- 129 mg/dLBorderline High LDL: 130-159 mg/dLHigh LDL: 160-189 mg/dLVery High LDL: greater than or equal to 190 mg/dL HDL Cholesterol 50 >40 mg/dL [facility] Comment:Desirable HDL: great er than 40 mg/dL Note: This HDL assay may give artificially low results in patients with liver disease. Blood 11/16/2024 8:33 AM EST 11/16/2024 11:32 AM EST us Chioma Krishnamurthy MD LAB BLOOD ORDERABLES Fin al Result [facility] [address] [place] [phone] * Hepatitis Panel, General (11/16/2024 8:33 AM EST) Hepatitis A IgM Nonreactive Nonreactive [facility] Comment:IgM antibodies to QUINTERO V not detected; does not exclude earlyacute or recovered HAV infection. ~Hepatitis B Surface Antibody NONREACTIVE Nonreactive [facility] Comment:Nonreactive: < 8.00 mIU/mL Hepatitis B Core Antibody Nonreactive Nonreactive [facility] Hepatitis C Antibody Nonreactive Nonreactive [facility] Comment:Antibodies to HCV no t detected; does not exclude early acuteHCV infection. Hepatitis B Surface Ag Negative Negative [facility] Blood 11/16/2024 8:33 AM EST 11/16/2024 11:32 AM EST us Chioma Krishnamurthy MD LAB BLOOD ORDERABLES Fin al Result Performing Organization Address City/[facility]/ZIP Co de Phone Number [facility] [address] [place] [address] [phone] * HIV-1/2 Antigen and Antibodies, Fourth Generation, with Reflexes (11/16/2024 8:33 AM EST) HIV AB/AG Nonreactive Nonreactive [facility] Comment:HIV-1 p24 Ag and/or HIV-1/HIV-2 Ab not detected.A test result that is nonreactive does not exclude thepossibility of exposure to or infection with HIV-1 and/orHIV-2. Nonreactive results in this assay for individualswith prior exposure to HIV-1 and/or HIV-2 may be due toantigen and antibody levels that are below the limit ofdetection of this assay.[employer] HIV Ag/Ab Combo assay result andsupplemental assay results should be interpreted inconjunction with the patient's clinical presentation,history and other laboratory results. If the results areinconsistent with clinical evidence, additional testing issuggested to confirm the result. Blood Venous blood specimen / Unknown 11/16/2024 8:33 AM EST 11/16/2024 11:32 AM EST us Chioma Krishnamurthy MD LAB BLOOD ORDERABLES Fin al Result Performing Organization Address City/[facility]/ZIP Co de Phone Number [facility] [address] [place] [address] [phone] * HM PAP/HPV (08/21/2021) Pap Smear 1. NILM 1. NILM Comment:due in 5 years HPV Not Detected Undetected, Indeterminat e, Quantitative , Not Detected us Historical Provider HEALTH MAINTENANCE Final Result from Last 3 Months or Most Recently Relevant to Health Maintenance Insurance [employer] PPO [place], [place] [employer] [place] [address] Care Teams Nutrition Instructor Relationship Specialty Start Date End Date Chioma Krishnamurthy MD [address] [place] [address] PCP - General Internal Medicine 11/14/24
--- OUTSIDE RECORDS SUMMARY | 2025-07-25 12:47 | XMS_ITS | Patient Health Record ---
Author Organization [facility] Address [address] [place] [address] Care Team Providers Care Music Video Director Name Role Phone Taylor (RETIRED) Micha TURNER Primary Care Provide r Unavailable Hector Gonsales Unavailable [phone] Reason For Referral No Information Medications Medication [...] Problem Status W/U Status Risk Notes Problem 017724137 Encounter for screening for malignant neoplasm of colon (Z12.11) Active confirmed Problem Screening for malignant neoplasm of rectum (177054260) Encounter for screening for malignant neoplasm of rectum (Z12.12) Active confirmed Problem 16074195 Irritable bowel syndrome with both constipation and diarrhea (K58.2) Active confirmed Plan Of Treatment Future Test Test Name Order Date COLONOSCOPY 09/14/2016 Insurance Providers Payer Name Payer Address Payer Phone Subscriber Number Group Number Insured Name Patient Relationship to Insured Coverage Start Date Coverage End Date [facility] [address] [place] [phone] [id number] EDUARDO LARIOS Self - patient is the insured Medical (General) History Medical History History ICD Code RSD--Right UE--from an injury at work Arthritis of right toe Denies IN,DM,CVA,Lung disease,renal dise ase Surgical History Surgery Date(Month/Year) Foot surgery left 1994 BTL 1998 Right wrist surgery
== END 2025-07-25 11:31 | disposition home or self-care (01) ==
LOC: HO.MAMMO 11:30
PROVIDERS: PCP Internal Medicine; Visit Provider Internal Medicine
DX: Z12.31 Encounter for screening mammogram for malignant neoplasm of breast (principal)
CPT/HCPCS: 77063; 77067

== ENCOUNTER → 2025-07-25 11:30 | Outpatient (BNV) | payer BC, SELFPAY | PROVIDERS: PCP Internal Medicine; Visit Provider Radiology Body Imaging | DX: Z12.31 Encounter for screening mammogram for malignant neoplasm of breast (principal) | CPT/HCPCS: 77063; 77067 ==